=== PATIENT | male | born 1960 | race Caucasian/White ===

== ENCOUNTER → 2017-05-21 10:54 | Outpatient (CLI) | payer OTHER, SELFPAY ==
[2017-05-21 11:25] VITALS: BP 136/85; PULSE 64; RESP 18; TEMP 36.3; O2SAT 97; BMI 31.1
[2017-05-21] MEDS: Mepolizumab 100 MG VIAL SQ (11:45)
[2017-05-21 12:15] VITALS: BP 131/91; PULSE 57; RESP 18; TEMP 36.1; O2SAT 98
== END ==
PROVIDERS: Family Provider Family Medicine; PCP Family Medicine; Visit Provider Internal Medicine Critical Care Medicine
DX: J45.50 Severe persistent asthma, uncomplicated (principal)
CPT/HCPCS: 96372; J2182

== ENCOUNTER → 2017-06-18 10:59 | Outpatient (CLI) | payer OTHER, SELFPAY ==
[2017-05-21 11:25] VITALS: BMI 31.1
[2017-05-21 12:15] VITALS: BP 131/91
[2017-06-18 11:07] VITALS: BP 146/88; PULSE 64; RESP 18; TEMP 36.7; O2SAT 98; BMI 31.1
[2017-06-18] MEDS: Mepolizumab 100 MG VIAL SQ (11:37)
== END ==
PROVIDERS: Family Provider Family Medicine; PCP Family Medicine; Visit Provider Internal Medicine Critical Care Medicine
DX: J45.50 Severe persistent asthma, uncomplicated (principal)
CPT/HCPCS: 96372; J2182

== ENCOUNTER → 2017-07-16 11:00 | Outpatient (CLI) | payer OTHER, SELFPAY ==
[2017-07-16 11:11] VITALS: BP 144/78; PULSE 76; RESP 16; TEMP 36.4; O2SAT 98; BMI 31.1
[2017-07-16] MEDS: Mepolizumab 100 MG VIAL SQ (11:32)
== END ==
PROVIDERS: Family Provider Family Medicine; PCP Family Medicine; Visit Provider Internal Medicine Critical Care Medicine
DX: J45.50 Severe persistent asthma, uncomplicated (principal)
CPT/HCPCS: 96372; J2182

== ENCOUNTER → 2017-08-13 10:57 | Outpatient (CLI) | payer OTHER, SELFPAY ==
[2017-08-13 11:02] VITALS: BP 129/80; PULSE 67; RESP 16; TEMP 36.5; O2SAT 98; BMI 31.8
[2017-08-13] MEDS: Mepolizumab 100 MG VIAL SQ (11:38)
== END ==
PROVIDERS: Family Provider Family Medicine; PCP Family Medicine; Visit Provider Internal Medicine Critical Care Medicine
DX: J45.50 Severe persistent asthma, uncomplicated (principal)
CPT/HCPCS: 96372; J2182

== ENCOUNTER → 2017-09-14 10:48 | Outpatient (CLI) | payer OTHER, SELFPAY ==
[2017-09-14 10:53] VITALS: BP 134/96; PULSE 75; RESP 18; TEMP 36.3; O2SAT 97; BMI 31.1
[2017-09-14] MEDS: Mepolizumab 100 MG VIAL SQ (11:28)
== END ==
PROVIDERS: Family Provider Family Medicine; PCP Family Medicine; Visit Provider Internal Medicine Critical Care Medicine
DX: J45.50 Severe persistent asthma, uncomplicated (principal)
CPT/HCPCS: 96372; J2182

== ENCOUNTER → 2017-10-12 10:52 | Outpatient (CLI) | payer OTHER, SELFPAY ==
[2017-10-12 10:57] VITALS: BP 133/96; PULSE 67; RESP 16; TEMP 36.4; O2SAT 97; BMI 31.8
[2017-10-12] MEDS: Mepolizumab 100 MG VIAL SQ (11:06)
== END ==
PROVIDERS: Family Provider Family Medicine; PCP Family Medicine; Visit Provider Internal Medicine Critical Care Medicine
DX: J45.50 Severe persistent asthma, uncomplicated (principal)
CPT/HCPCS: 96372; J2182

== ENCOUNTER → 2017-11-09 10:38 | Outpatient (CLI) | payer OTHER, SELFPAY ==
[2017-11-09 11:05] VITALS: BP 126/82; PULSE 62; RESP 18; TEMP 36.6; O2SAT 97; BMI 31.8
[2017-11-09] MEDS: Mepolizumab 100 MG VIAL SQ (11:07)
== END ==
PROVIDERS: Family Provider Family Medicine; PCP Family Medicine; Visit Provider Internal Medicine Critical Care Medicine
DX: J45.50 Severe persistent asthma, uncomplicated (principal)
CPT/HCPCS: 96372; J2182

== ENCOUNTER → 2017-12-07 10:55 | Outpatient (CLI) | payer OTHER, SELFPAY ==
[2017-12-07 11:02] VITALS: BP 141/90; PULSE 68; RESP 16; TEMP 36.6; O2SAT 98
[2017-12-07] MEDS: Mepolizumab 100 MG VIAL SQ (11:20)
== END ==
PROVIDERS: Family Provider Family Medicine; PCP Family Medicine; Visit Provider Internal Medicine Critical Care Medicine
DX: J45.50 Severe persistent asthma, uncomplicated (principal)
CPT/HCPCS: 96372; J2182

== ENCOUNTER → 2018-01-04 10:57 | Outpatient (CLI) | payer OTHER, SELFPAY ==
[2018-01-04 11:13] VITALS: BP 132/88; RESP 16; TEMP 36.9; O2SAT 96
[2018-01-04] MEDS: Mepolizumab 100 MG VIAL SQ (11:41)
[2018-01-04 18:38] LABS: Absolute Lymphocyte Count 1.51 X10^3/ul (0.83-4.51); Absolute Neutrophil Count 4.2 X10^3/uL (2.0-7.7); Basophil# 0.03 X10^3/uL; Basophil% 0.5 % (0-1); Eosinophil# 0.03 X10^3/uL; Eosinophils% 0.5 % (0-5); Hematocrit 42.5 % (40-54); Hemoglobin 14.4 g/dl (13.0-16.5); Lymphocyte # 1.51 X10^3/ul (4.0); Lymphocyte % 23.9 % (19-41); Mean Corp Hgb Conc 33.9 g/gl (32-36); Mean Corpuscular Hgb 30.2 pg (27.0-32.0); Mean Corpuscular Volume 89.1 fL (80-94); Mean Platelet Vol. 11.6 fl (6.2-12.0); Monocyte# 0.56 X10^3/uL; Monocyte% 8.9 % (0-10); Neutrophil # 4.19 X10^3/uL (2.7-7.7); Neutrophil % 66.2 % (47-70); Platelet Count 180 K/mm3 (150-450); RBC Distribution Width CV 13.6 % (11.6-14.6); Red Blood Count 4.77 M/mm3 (4.6-6.2); White Blood Count 6.3 K/mm3 (4.4-11.0)
[2018-01-04 18:51] LABS: POSITIVE COUNT NO; POSITIVE DIFFERENTIAL NO; POSITIVE MORPHOLOGY NO
[2018-01-04 18:57] LABS: Anion Gap 10 (5-15); BUN 20 mg/dL (7-18); BUN/Creat Ratio 20.7 RATIO (10-20); Calcium,Total 8.7 mg/dL (8.5-10.1); Chloride 104 mmol/L (98-107); Creatinine, Serum 0.96 mg/dL (0.70-1.30); EST Glomerular Filtration Rate 85 mL/min (>60); Est Glom Filt Rate - Afr Amer 103 mL/min (>60); Glucose 91 mg/dL (74-106); Potassium 3.6 mmol/L (3.5-5.1); Sodium Level 141 mmol/L (136-145); Thyroid Stim Hormone (TSH) 4.11 uIU/mL (0.358-3.74)
== END ==
PROVIDERS: Family Provider Family Medicine; PCP Family Medicine; Visit Provider Internal Medicine Critical Care Medicine
DX: J45.50 Severe persistent asthma, uncomplicated (principal); I10 Essential (primary) hypertension; E03.9 Hypothyroidism, unspecified; R73.01 Impaired fasting glucose
CPT/HCPCS: 36415; 80048; 84439; 84443; 85025; 96372; J2182

== ENCOUNTER → 2018-02-01 10:57 | Outpatient (CLI) | payer OTHER, SELFPAY ==
[2018-02-01 11:07] VITALS: BP 127/90; PULSE 69; RESP 18; TEMP 36.6; O2SAT 96; BMI 31.8
[2018-02-01] MEDS: Mepolizumab 100 MG VIAL SQ (11:35)
== END ==
PROVIDERS: Family Provider Family Medicine; PCP Family Medicine; Visit Provider Internal Medicine Critical Care Medicine
DX: J45.50 Severe persistent asthma, uncomplicated (principal)
CPT/HCPCS: 96372; J2182

== ENCOUNTER → 2018-03-01 15:40 | Outpatient (CLI) | payer OTHER, SELFPAY ==
[2018-03-01 15:48] VITALS: BP 120/74; PULSE 68; RESP 16; TEMP 36.6; O2SAT 96; BMI 31.8
[2018-03-01] MEDS: Mepolizumab 100 MG VIAL SQ (16:15)
--- NOTE | 2018-03-01 16:32 | NURSING ---
NO REACTION NOTED AT INJECTION SITE.
== END ==
PROVIDERS: Family Provider Family Medicine; PCP Family Medicine; Referring Provider Internal Medicine Critical Care Medicine; Visit Provider Internal Medicine Critical Care Medicine
DX: J45.50 Severe persistent asthma, uncomplicated (principal)
CPT/HCPCS: 96372; J2182

== ENCOUNTER → 2018-03-29 15:43 | Outpatient (CLI) | payer OTHER, SELFPAY ==
[2018-03-29 15:52] VITALS: BP 149/90; PULSE 62; RESP 18; TEMP 36.4; O2SAT 97; BMI 30.9
[2018-03-29] MEDS: Mepolizumab 100 MG VIAL SQ (16:18)
--- OUTSIDE RECORDS SUMMARY | 2018-05-15 23:01 | XMS RPT_ITS ---
:1960 Author Organization OHIP Support Name Relationship Address Phone JHON SHAVER Unavailable [address] + [place] [address] WOOCISCH Unavailable [address] + [place] [address] JHON SHAVER Unavailable [address] + [place] [address] WOOCISCH Unavailable [address] + [place] [address] HAVEAlaina JHON Unavailable [address] + [place] [address] WOOCISCH Unavailable [address] + [place] [address] HAVEN, JHON Unavailable [address] + [place] [address] WOOCISCH Unavailable [address] + [place] [address] HAVEN, JHON Unavailable [address] + [place] [address] WOOCISCH Unavailable [address] + [place] [address] HAVEN, JHON Unavailable [address] + [place] [address] WOOCISCH Unavailable [address] + [place] [address] HAVEN, JHON Unavailable [address] + [place] [address] WOOCISCH Unavailable [address] + [place] [address] HAVEN, JHON Unavailable [address] + [place] [address] WOOCISCH Unavailable [address] + [place] [address] HAVEN, JHON Unavailable [address] + [place] [address] WOOCISCH Unavailable [address] + [place] [address] HAVEN, JHON Unavailable [address] + [place] [address] WOOCISCH Unavailable [address] + [place] [address] HAVEN, JHON Unavailable [address] + [place] [address] WOOCISCH Unavailable [address] + [place] [address] HAVEN, JHON Unavailable [address] + [place] [address] WOOCISCH Unavailable [address] + [place] [address] HAVEN, JHON Unavailable [address] + [place] [address] WOOCISCH Unavailable [address] + [place] [address] HAVEN, JHON Unavailable [address] + [place] [address] WOOCISCH Unavailable [address] + [place] [address] HAVEN, JHON Unavailable [address] + [place] [address] WOOCISCH Unavailable [address] + [place] [address] HAVEN, JHON Unavailable [address] + [place] [address] WOOCISCH Unavailable [address] + [place] [address] HAVEN, JHON Unavailable [address] + [place] [address] WOOCISCH Unavailable [address] + [place] [address] HAVEN, JHON Unavailable [address] + [place] [address] WOOCISCH Unavailable [address] + [place] [address] Care Team Providers Name Role Phone Noe, Amor Attending Unavailable Teddy, Tarik Referring Unavailable Jina Corea Attending Unavailable Noe, Amor Attending Unavailable Noe, Amor Referring Unavailable Teddy, Lenox Primary Care Unavailable Noe, Amor Attending Unavailable Noe, Maor Referring Unavailable Teddy, [facility] Primary [facility] Unavailable Noe, Amor Attending Unavailable Noe, Amor Referring Unavailable Teddy, [facility] Primary [facility] Unavailable Janelle Toro Attending Unavailable Teddy, Tarik Referring Unavailable Noe, Amor Attending Unavailable Noe, Amor Referring Unavailable Teddy, [facility] Primary [facility] Unavailable Noe, Amor Attending Unavailable Noe, Amor Referring Unavailable Teddy, [facility] Primary [facility] Unavailable Noe, Amor Attending Unavailable Noe, Amor Referring Unavailable Teddy, [facility] Primary [facility] Unavailable Noe, Amor Attending Unavailable Noe, Amor Referring Unavailable Tdedy, [facility] Primary [facility] Unavailable Noe, Amor Attending Unavailable Noe, Amor Referring Unavailable Teddy, [facility] Primary [facility] Unavailable Noe, Amor Attending Unavailable Noe, Amor Referring Unavailable Teddy, [facility] Primary [facility] Unavailable Noe, Amor Attending Unavailable Noe, Amor Referring Unavailable Teddy, [facility] Primary [facility] Unavailable Noe, Amor Attending Unavailable Teddy, Tarik Referring Unavailable Noe, Amor Attending Unavailable Noe, Amor Referring Unavailable Teddy, [facility] Primary [facility] Unavailable Noe, Amor Attending Unavailable Noe, Amor Referring Unavailable Teddy, [facility] Primary [facility] Unavailable Noe, Amor Attending Unavailable Noe, Amor Referring Unavailable Teddy, [facility] Primary [facility] Unavailable Janelle Toro Attending Unavailable Teddy, Tarik Referring Unavailable Teddy, [facility] Primary [facility] Unavailable PROBLEMS PROBLEMS DATE TYPE CONDITION / CODE ATTENDING STATUS SOURCE 04/07/2018 Unknown J45.909 - Noe, Amor Active [facility] Unspecified asthma, Community uncomplicated / Hospital J45.909(ICD-10) Repository 04/07/2018 Unknown J33.9 - Nasal Noe, Amor Active [facility] polyp, unspecified Community / J33.9(ICD-10) Hospital Repository 01/04/2018 Unknown E03.9 - Noe, Amor Active [facility] Hypothyroidism, Community unspecified / Hospital E03.9(ICD-10) Repository 01/04/2018 Unknown I10 - Essential Noe, Amor Active [facility] (primary) Community hypertension / Hospital I10(ICD-10) Repository 01/04/2018 Unknown R73.01 - Impaired Noe, Amor Active [place] fasting glucose / Community R73.01(ICD-10) Hospital Repository 02/09/2018 Unknown J45.50 - Severe Noe, Amor Active [facility] persistent asthma, Community uncomplicated / Hospital J45.50(ICD-10) Repository PROCEDURES PROCEDURES No Procedure Records FoundRESULTS RESULTS PULMONARY VISIT REPORT Observed: 04/08/2018 Status: F Source: [place] 6:49 AM [facility] REPOSITORY [facility] [address] [place] [address] OFFICE VISIT Date of Service: 04/07/18 MR#: [id number] Acct: [id number] Name: PAULA SHAVER Rep #: [id number] : 1960 Provider: Amor Liu MD Age/Sex: 58/M Location: [facility] Status: Signed Assessment AND Plan Plan Patient overall appears to be doing well. Patient is on maximal dose Breo and Nucala therapy, but has not had any exacerbations requiring prednisone therapy. Previous attempts to decrease dosing of Breo have not been tolerated. 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 PFT prior to next visit. Continue current therapy. Orders Orders: Plan Detail Follow Up 6 Months ([facility]) HPI 3 M FU: Chief Complaint: Chronic cough Details: Patient is a 58-year-old male, currently under the care of Dr. Espinal, who presents for evaluation secondary to chronic cough. Since last visit, patient denies any ER visits, hospitalizations or prednisone burst. Patient does report having a cold over the last 4 days, but he feels this is getting better. Patient overall feels subjectively unchanged compared to previous. Patient does report that he recently changed to a different job. 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 Patient states he will use his albuterol preemptively prior to going to work, but has not required significant increase in albuterol otherwise. Patient has been compliant with his maintenance therapy and denies any complications such as thrush, hoarseness or sore throat. During recent cold, patient reports some sinus congestion and sneezing. Patient states he is blowing his nose frequently and coughing up dark brown sputum that lightens throughout the day. Patient has not taken any [id number] medications for his cold. Patient continues to receive Nucala therapy. Patient states he takes Benadryl preemptively and has not had any problems with rashes. 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 Accompanied by: Self Is patient in pain?: No Allergies sulfamethoxazole [From Bactrim] Allergy (Verified 04/07/18 13:11) Hives trimethoprim [From Bactrim] Allergy (Verified 04/07/18 13:11) Hives Medications Atorvastatin Calcium [Lipitor] 40 mg PO QHS 10/08/13 [History Confirmed 04/07/18] Albuterol Aerosols [Ventolin Aerosols] 2.5 mg INHALATION Q4H PRN PRN 10/30/13 [History Confirmed 04/07/18] Albuterol Inhaler [Ventolin Hfa] 2 puff INHALATION Q4H PRN PRN #1 inhaler 11/02/13 [Rx Confirmed 04/07/18] losartan 50 mg-hydrochlorothiazide 12.5 mg tablet 1 tab PO QDAY 05/20/17 [History Confirmed 04/07/18] fluticasone 200 mcg-vilanterol 25 mcg/dose powder for inhalation 1 ea INHALATION DAILY #3 device 12/27/17 [Rx Confirmed 04/07/18] Levothyroxine [Synthroid] 175 mcg PO DAILY 02/01/18 [History Confirmed 04/07/18] PFS Medical History Hiatal hernia (Chronic) Nasal polyp (Chronic) Asthma (Chronic) HTN (hypertension) (Chronic) Dyslipidemia (Chronic) Hypothyroid (Chronic) Surgical History Nasal Polyps Removal (Resolved) Male circumcision (Resolved) Varicose vein of leg (Resolved) History of appendectomy (Resolved) H/O hernia repair (Resolved) Family History Father Kidney disease Social History Smoking Status: Never smoker second hand exposure: Yes alcohol intake: never substance use type: does not use Review of Systems Const CONSTITUTIONAL: Negative anorexia, body ache, chills, daytime sleepiness, fever(s), night sweats, oral thrush, stops breathing during sleep, weight loss, sleeping in chair, fatigue, weight loss, weight gain, frequent colds, seasonal allergies, other, headache(s) or orthopnea EETM Ear Nose Throat Mouth: Positive hearing normal and nasal discharge; negative hard of hearing, hoarseness, dry mouth in morning, change in vision, itchy eyes, eye pain, swallowing Difficulty, ear pain, nose bleed, headache(s), mouth pain, nasal congestion, post nasal drip, sinus pain, sinus pressure, sore throat or other Cardio Cardiovascular: Negative chest pain, chest pain at rest, chest pain with activity, irregular heart rhythm, edema, shortness of breath when lying down, palpitations, murmur or other Resp Respiratory: Positive as per HPI, cough cough: Positive productive color: Positive brown and clear and inhalers; negative shortness of breath, pain with cough, wheezing, chest congestion, chest tightness, pain on inspiration, increase use of rescue inhalers, snoring, apnea or other Gastro Gastrointestional: Negative bloody stools, change in appetite, difficulty swallowing, reflux, hematemesis, melena stool, loose stool, constipation or other Genitourinary: Negative blood in urine, nocturia, pain with urination or other Musc Musculoskeletal: Negative body pain, back pain, neck pain or other Skin/Breast Skin/Breast: Negative dry skin, itching, rash, unusual bruising, breast lump or other Neuro Neurological: Negative restless legs, confusion, weakness or other Psych Psychocological: Negative abnormal sleep pattern, anxiety, thoughts of hurting self/others, hopelessness or other Lymph Lymphatic: Negative easy bleeding, easy bruising, swollen lymph nodes or other Exam Const Constitutional: Positive conversant, cooperative, in no acute respiratory distress, healthy appearing, well developed, well nourished and good hygiene; negative appears older than stated age, wearing supplemental oxygen, ill appearing or smells of smoke Head Head: Positive normocephalic and atraumatic; negative cyanosis of lips/distal nose, frontal sinus tenderness or maxillary sinus tenderness Eyes Eye: Positive clear conjunctiva; negative nystagmus, scleral abnormality or cataract present Ears Ear: Positive hearing normal and external ears normal; negative hard of hearing Nose Nose: Positive external nose normal, septum normal and no nasal discharge; negative epistaxis or nasal polyp Mouth Mouth: Positive oral mucosae normal, no lesions, good dentition and posterior oropharynx is adequate; negative post nasal drip, malodorous breath or oral thrush present Mallampati Score: II: Mallampati Score Neck Neck: Positive normal visual inspection, full ROM and trachea midline; negative lymphadenopathy or JVD Chest Wall Chest: Positive normal inspection of the chest and symmetric chest movement; negative crepitus or tenderness Resp lung sounds: Positive clear to auscultation, good air exchange, normal expiratory time and normal respiratory effort; negative wheezes, rhonchi, rales, use of accessory muscles, wheeze present on forced exhalation or dullness to percussion Cardio Cardiac: Positive regular rate, regular rhythm, S1 normal and S2 normal; negative murmur, rub or gallop GI GI: Positive normal to inspection and normal bowel sounds; negative distended, ascites or epigastric tenderness Genitourinary: Positive deferred Musc Musculoskeletal: Positive steady gait; negative using an assistive device for ambulation, kyphosis or scoliosis Skin Pulmonary Skin Exam: Positive intact; negative rash, lesion, ulcers, erythema or dermal atrophy Pulses Pulse: Yes radial pulses present Extremities Extremities: Yes capillary refill normal, No clubbing, No cyanosis, No edema, No stasis dermatitis Neuro Neurologic: Yes conversant, Yes no focal neuro deficits, Yes normal coordination, Yes normal concentration, Yes cooperative, Yes normal cognition, Yes understands questions Lymph Lymphatic: No lymphadenopathy Psych Appearance: Positive grossly normal Mental Status: Positive mental status grossly normal Mood: Positive congruent mood Affect: Positive normal affect Coding Level of Care Code Off vis,est,level 3 04/08/18 0649 <Electronically signed by Amor Liu MD> Date Amor Liu MD Cosigner Signature: Date (if applicable) CC: Tarik Espinal MD CBC W/DIFF, AUTOMATED Collected: 01/04/2018 Status: F Source: [place] 2:29 PM [facility] REPOSITORY Order Comment: ORDERED BLOOD WORK TYPE CODE TESTS RESULT OUT OF RANGE REFERENCE UNITS LAB L100.1000 4.4-11.0 K/mm3 Normal WBC 6.3 LAB L100.1200 4.6-6.2 M/mm3 Normal RBC 4.77 LAB L100.1300 13.0-16.5 g/dl Normal HGB 14.4 LAB L100.1400 40-54 % Normal HCT 42.5 LAB L100.1500 80-94 fL Normal MCV 89.1 LAB L100.1600 27.0-32.0 pg Normal MCH 30.2 LAB L100.1700 32-36 g/gl Normal MCHC 33.9 LAB L100.1810 11.6-14.6 % Normal RDW CV 13.6 LAB L100.1820 35.1-43.9 fl High RDW SD 44.0 LAB L100.1900 150-450 K/mm3 Normal PLT 180 LAB L100.2000 6.2-12.0 fl Normal MPV 11.6 LAB L100.2100 47-70 % Normal NEUT% 66.2 LAB L100.2200 19-41 % Normal LY% 23.9 LAB L100.2300 0-10 % Normal MONO% 8.9 LAB L100.2400 0-5 % Normal EO% 0.5 LAB L100.2500 0-1 % Normal BASO% 0.5 LAB L100.2550 0.0-0.9 % Normal IM GRAN % 0.000 Result Comment: IG% - Immature Granulocytes (promyelocytes, myelocytes and metamyelocytes) > 1% indicates that a LEFT SHIFT is Present. LAB L100.2620 2.0-7.7 X10 3/uL Normal Absolute Neut 4.2 LAB L100.2720 0.83-4.51 X10 3/ul Normal Absolute Lymph 1.51 Performed By: #### L100.0100 #### [facility] [address] [place], [place], [id number] BASIC METABOLIC Collected: 01/04/2018 Status: F Source: [place] PROFILE (BMP) 2:29 PM [facility] REPOSITORY Order Comment: ORDERED BLOOD WORK TYPE CODE TESTS RESULT OUT OF RANGE REFERENCE UNITS LAB L501.0100 74-106 mg/dL Normal GLU 91 Result Comment: Please note revised GLUCOSE reference range effective 2017. LAB L501.1000 7-18 mg/dL High BUN 20 LAB L501.1100 0.70-1.30 mg/dL Normal CREAT,SERUM 0.96 Result Comment: The validity of the calculated GFR AND GFRAA in patients over 70 years has not been determined. Clinical correlation is essential. LAB L501.1110 >60 mL/min Normal EST GFR 85 Result Comment: Non- GFR Calc LAB L501.1115 >60 mL/min Normal EST GFR - AA 103 Result Comment: GFR Calc LAB L501.1300 10-20 RATIO High BUN/CRE 20.7 LAB L501.2200 8.5-10.1 mg/dL CA Normal 8.7 LAB L501.5300 136-145 mmol/L NA Normal 141 LAB L501.5600 3.5-5.1 mmol/L K Normal 3.6 LAB L501.5900 98-107 mmol/L CL Normal 104 LAB L501.6100 21.0-32.0 mmol/L Normal CO2 27.0 LAB L501.6200 5-15 Normal GAP 10 Performed By: #### L500.2500, L501.9520, L506.0400 #### [facility] [address] [place], [place], [id number] THYROID STIM HORMONE Collected: 01/04/2018 Status: F Source: [place] (TSH) 2:29 PM [facility] REPOSITORY Order Comment: ORDERED BLOOD WORK TYPE CODE TESTS RESULT OUT OF RANGE REFERENCE UNITS LAB L501.9520 0.358-3.74 uIU/mL High TSH 4.11 Performed By: #### L500.2500, L501.9520, L506.0400 #### [facility] [address] [place], [place], [id number] T4 FREE DIRECT Collected: 01/04/2018 Status: F Source: [place] 2:29 PM [facility] REPOSITORY Order Comment: ORDERED BLOOD WORK TYPE CODE TESTS RESULT OUT OF RANGE REFERENCE UNITS LAB L506.0400 0.76-1.46 ng/dL Normal T4 FREE 1.20 DIRECT Performed By: #### L500.2500, L501.9520, L506.0400 #### [facility] [address] [place], [address] PULMONARY VISIT REPORT Observed: 12/01/2017 Status: F Source: [place] 11:30 AM [facility] REPOSITORY [facility] [address] [place] [address] OFFICE VISIT Date of Service: 12/01/17 MR#: [id number] Acct: [id number] Name: PAULA SHAVER Rep #: [id number] : 1960 Provider: Janelle Toro Age/Sex: 57/M Location: [facility] Status: Signed Assessment AND Plan 1. Severe persistent asthma without complication J45.50 Plan No signs of exacerbation of asthma today. No change in maintenance medications. No additional testing at this time. Contact the office with any signs of new or worsening symptoms. Follow-up in 3 mos. 2. Daytime hypersomnia G47.19 Plan Suspicious for obstructive sleep apnea. Declined testing. Unattended sleep study with AutoPAP if indicated would be appropriate. Plan Detail Follow Up 3 Months ([facility]) HPI 2 M FU: Chief Complaint: cough HPI Comments Details: This patient presents to the office today to follow up on his severe persistent asthma. He is ambulatory and on room air. He denies any visits to the ED/Urgent care for respiratory illness since his last office visit. He denies any need for antibiotics or prednisone for breathing problems since his last office visit either. He was using Arnuity 200 mcg daily, but believes he was noticing more chest tightness on the arnuity, which was less control than he was seeing with Breo. He does rinse his mouth after each use, he denies any medication side effects such as sore throat or thrush. He has not needed his rescue inhaler. He is using an albuterol nebulizer once daily, which loosens his secreations and allows him to expectorate them. He continues with Nucala injections monthly. He usually premedicates with Benadryl secondary to some injection site reactions. He admits that recently he forgot to premedicate and developed hives and rash at the injection site. He was disappointed and somewhat concerned that it took 3 doses of Benadryl to resolve. Currently, he complains of a daily cough. The cough is productive of green to brown sputum in the morning and is dry through out the rest of the day. He has occasional chest tightness and wheezing. He denies any hemoptysis. He denies chest pain or palpitations. He has not had fever, chills or body aches. See complete review of systems. He complains of daytime fatigue. He admits to snoring. He denies napping. He then stated I am not going to wear that mask while I sleep, so don't even go there. STOP-BANG Assessment: 1. Do you snore? Y 2. Are you frequently tired during the day? Y 3. Have you been observed gasping or choking while asleep? N 4. Do you have high blood pressure? Y 5. BMI - greater than 35kg/m2? N 6. Age - over 50 years old? Y 7. Neck Circumference - greater than 37 cm for females or 40 cm for males? N 8. Gender - male? Y Total STOP-BANG score = 5 which indicates HIGH risk for obstructive sleep apnea (yes to 3 or more questions = high risk of sleep apnea). 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 Accompanied by: Self Is patient in pain?: No Allergies sulfamethoxazole [From Bactrim] Allergy (Verified 12/01/17 10:18) Hives trimethoprim [From Bactrim] Allergy (Verified 12/01/17 10:18) Hives Medications Atorvastatin Calcium [Lipitor] 40 mg PO QHS 10/08/13 [History Confirmed 12/01/17] Levothyroxine [Synthroid] 125 mcg PO DAILY 10/08/13 [History Confirmed 12/01/17] Albuterol Aerosols [Ventolin Aerosols] 2.5 mg INHALATION Q4H PRN PRN 10/30/13 [History Confirmed 12/01/17] Albuterol Inhaler [Ventolin Hfa] 2 puff INHALATION Q4H PRN PRN #1 inhaler 11/02/13 [Rx Confirmed 12/01/17] losartan 50 mg-hydrochlorothiazide 12.5 mg tablet 1 tab PO QDAY 05/20/17 [History Confirmed 12/01/17] Fluticasone/Vilanterol [Breo Ellipta 200-25 Mcg INH] 1 ea IH DAILY 08/13/17 [History Confirmed 12/01/17] PFSH Medical History Hiatal hernia (Chronic) Nasal polyp (Chronic) Asthma (Chronic) HTN (hypertension) (Chronic) Dyslipidemia (Chronic) Hypothyroid (Chronic) Surgical History Nasal Polyps Removal (Resolved) Male circumcision (Resolved) Varicose vein of leg (Resolved) History of appendectomy (Resolved) H/O hernia repair (Resolved) Family History Father Kidney disease Social History Smoking Status: Never smoker second hand exposure: Yes alcohol intake: never substance use type: does not use Review of Systems Const CONSTITUTIONAL: Positive fatigue; negative anorexia, body ache, chills, daytime sleepiness, fever(s), night sweats, oral thrush, stops breathing during sleep, weight loss, sleeping in chair, weight loss, weight gain, frequent colds, seasonal allergies, other, headache(s) or orthopnea EETM Ear Nose Throat Mouth: Positive hearing normal and nasal discharge; negative hard of hearing, hoarseness, dry mouth in morning, change in vision, itchy eyes, eye pain, swallowing Difficulty, ear pain, nose bleed, headache(s), mouth pain, nasal congestion, post nasal drip, sinus pain, sinus pressure, sore throat or other Cardio Cardiovascular: Negative chest pain, chest pain at rest, chest pain with activity, irregular heart rhythm, edema, shortness of breath when lying down, palpitations, murmur or other Resp Respiratory: Positive as per HPI, shortness of breath shortness of breath: Positive with activity, wheezing, cough cough: Positive non-productive and productive color: Positive brown and green and inhalers; negative pain with cough, chest congestion, chest tightness, pain on inspiration, increase use of rescue inhalers, snoring, apnea or other Gastro Gastrointestional: Negative bloody stools, change in appetite, difficulty swallowing, reflux, hematemesis, melena stool, loose stool, constipation or other Genitourinary: Negative blood in urine, nocturia, pain with urination or other Musc Musculoskeletal: Negative body pain, back pain, neck pain or other Skin/Breast Skin/Breast: Negative dry skin, itching, rash, unusual bruising, breast lump or other Neuro Neurological: Negative restless legs, confusion, weakness or other Psych Psychocological: Negative abnormal sleep pattern, anxiety, thoughts of hurting self/others, hopelessness or other Lymph Lymphatic: Negative easy bleeding, easy bruising, swollen lymph nodes or other Exam Const Constitutional: Positive conversant, cooperative, in no acute respiratory distress, healthy appearing, well developed, well nourished and good hygiene Head Head: Positive normocephalic and atraumatic; negative cyanosis of lips/distal nose Eyes Eye: Positive clear conjunctiva; negative nystagmus or scleral abnormality Ears Ear: Positive hearing normal; negative hard of hearing Nose Nose: Negative epistaxis Mouth Mouth: Positive oral mucosae normal and no lesions; negative post nasal drip, malodorous breath or oral thrush present Mallampati Score: I: Mallampati Score Neck Neck: Positive normal visual inspection, full ROM and trachea midline; negative lymphadenopathy, JVD or tender Chest Wall Chest: Positive normal inspection of the chest and symmetric chest movement; negative increased A/P diameter Resp lung sounds: Positive clear to auscultation, good air exchange, normal expiratory time and normal respiratory effort; negative diminished, wheezes, rhonchi, rales, dullness to percussion or wheeze present on forced exhalation Cardio Cardiac: Positive regular rate, regular rhythm, S1 normal and S2 normal; negative murmur GI GI: Positive normal to inspection and normal bowel sounds; negative distended Genitourinary: Positive deferred Musc Musculoskeletal: Positive steady gait and ROM normal; negative kyphosis or scoliosis Skin Pulmonary Skin Exam: Positive intact; negative rash, lesion, ulcers or erythema Pulses Pulse: Yes pulses normal x4 extremities Extremities Extremities: Yes capillary refill normal, No clubbing, No cyanosis, No edema Neuro Neurologic: Yes conversant, Yes no focal neuro deficits, Yes normal concentration, Yes understands questions, Yes cooperative, Yes normal cognition, Yes normal coordination Lymph Lymphatic: No lymphadenopathy, No tenderness, No cervical adenopathy Psych Appearance: Positive grossly normal, eye contact and well kempt Mental Status: Positive mental status grossly normal Mood: Positive congruent mood Affect: Positive normal affect Coding Level of Care Code Off vis,est,level 3 Diagnoses Severe persistent asthma without complication J45.50 Asthma severity: severe Asthma persistence: persistent Asthma complication type: uncomplicated Daytime hypersomnia G47.19 12/01/17 1130 <Electronically signed by Janelle DAUGHERTY> Date Janelle GIRONC Cosigner Signature: Date (if applicable) CC: Tarik Espinal MD PULMONARY VISIT REPORT Observed: 10/07/2017 Status: F Source: [place] 11:41 AM [facility] Pulmonary Medicine of [address] [place] [address] OFFICE VISIT Date of Service: 10/07/17 MR#: [id number] Acct: [id number] Name: PAULA SHAVER Rep #: [id number] : 1960 Provider: Amor Liu MD Age/Sex: 57/M Location: [facility] Status: Signed Assessment AND Plan Problems 1. Severe persistent asthma without complication J45.50 2. Nasal Polyps Removal Plan Patient overall is well controlled at this time. Unfortunately, patient did not tolerate step therapy from Brio to off. Stressed to the patient that Nucala has resulted in no exacerbation over the last 10 months indicating a good response. Will attempt to stepdown in therapy to Arnuity 200. Patient does have some leftover Brio so will use this prior to transition. We will also discuss financial situation with Nucala rep proactively to ensure patient does not miss any doses. Patient has not followed up for nasal polyp removal, but continues to have some sinus congestion. Continue Nucala. Stepdown therapy to Arnuity. Plan Detail Follow Up 2 Months ([facility]) HPI 3 M FU: Chief Complaint: Questions about therapy Details: Patient is a 57-year-old male, currently under the care of Dr. Espinal, who presents for evaluation secondary to questions of therapy. Since last visit, patient denies any ER visits, hospitalizations or prednisone burst. Patient does report that he attempted discontinuation of Brio therapy, but started to develop wheezing, so reinitiated therapy. Patient states he is back to his baseline at this time. Patient continues to report a cough on a daily basis consistent with green to dark brown phlegm. Patient does have occasional hoarseness, which is typically associated with cough. Patient has been compliant with Nucala therapy and denies any reactions at the injection site after premedication with Benadryl. Patient reports he uses a dose of albuterol approximately 1 time per day. Patient did have several questions about alternatives for her Nucala. Patient is concerned about cost moving forward as patient has only been preapproved through November. Intake Vital Signs10/07/17 Body Mass Index (BMI) 31.1 10/07/17 Blood Pressure 150/91 10/07/17 Height 6 ft 10/07/17 Weight: 109.769 kg Intake Visit Reasons: 3 M FU Accompanied by: Self Allergies sulfamethoxazole [From Bactrim] Allergy (Verified 07/16/17 11:15) Hives trimethoprim [From Bactrim] Allergy (Verified 07/16/17 11:15) Hives Medications Atorvastatin Calcium [Lipitor] 40 mg PO QHS 10/08/13 [History Confirmed 08/13/17] Levothyroxine [Synthroid] 125 mcg PO DAILY 10/08/13 [History Confirmed 08/13/17] Albuterol Aerosols [Ventolin Aerosols] 2.5 mg INHALATION Q4H PRN PRN 10/30/13 [History Confirmed 08/13/17] Albuterol Inhaler [Ventolin Hfa] 2 puff INHALATION Q4H PRN PRN #1 inhaler 11/02/13 [Rx Confirmed 08/13/17] losartan 50 mg-hydrochlorothiazide 12.5 mg tablet 1 tab PO QDAY 05/20/17 [History Confirmed 08/13/17] Fluticasone/Vilanterol [Breo Ellipta 200-25 Mcg INH] 1 ea IH DAILY 08/13/17 [History Confirmed 08/13/17] PFSH Medical History Hiatal hernia (Chronic) Nasal polyp (Chronic) Asthma (Chronic) HTN (hypertension) (Chronic) Dyslipidemia (Chronic) Hypothyroid (Chronic) Surgical History Nasal Polyps Removal (Resolved) Male circumcision (Resolved) Varicose vein of leg (Resolved) History of appendectomy (Resolved) H/O hernia repair (Resolved) Family History Father Kidney disease Social History Smoking Status: Never smoker second hand exposure: Yes alcohol intake: never substance use type: does not use Review of Systems Const CONSTITUTIONAL: Negative anorexia, body ache, chills, daytime sleepiness, fever(s), night sweats, oral thrush, stops breathing during sleep, weight loss, sleeping in chair, fatigue, weight loss, weight gain, frequent colds, seasonal allergies, other, headache(s) or orthopnea EETM Ear Nose Throat Mouth: Positive hearing normal and hoarseness; negative hard of hearing, dry mouth in morning, change in vision, itchy eyes, eye pain, swallowing Difficulty, ear pain, nose bleed, headache(s), mouth pain, nasal congestion, nasal discharge, post nasal drip, sinus pain, sinus pressure, sore throat or other Cardio Cardiovascular: Negative chest pain, chest pain at rest, chest pain with activity, irregular heart rhythm, edema, shortness of breath when lying down, palpitations, murmur or other Resp Respiratory: Positive as per HPI and cough cough: Positive productive color: Positive green and brown; negative shortness of breath, pain with cough, wheezing, chest congestion, chest tightness, pain on inspiration, inhalers, increase use of rescue inhalers, snoring, apnea or other Gastro Gastrointestional: Negative bloody stools, change in appetite, difficulty swallowing, reflux, hematemesis, melena stool, loose stool, constipation or other Genitourinary: Negative blood in urine, nocturia, pain with urination or other Musc Musculoskeletal: Negative body pain, back pain, neck pain or other Skin/Breast Skin/Breast: Negative dry skin, itching, rash, unusual bruising, breast lump or other Neuro Neurological: Negative restless legs, confusion, weakness or other Psych Psychocological: Negative abnormal sleep pattern, anxiety, thoughts of hurting self/others, hopelessness or other Lymph Lymphatic: Negative easy bleeding, easy bruising, swollen lymph nodes or other Exam Const Constitutional: Positive conversant, cooperative, in no acute respiratory distress, healthy appearing, well developed, well nourished and good hygiene; negative ill appearing or smells of smoke Head Head: Positive normocephalic and atraumatic; negative cyanosis of lips/distal nose, frontal sinus tenderness or maxillary sinus tenderness Eyes Eye: Positive clear conjunctiva; negative nystagmus, scleral abnormality or cataract present Ears Ear: Positive hearing normal and external ears normal; negative hard of hearing Nose Nose: Positive external nose normal, septum normal and clear nasal discharge; negative epistaxis or nasal polyp Mouth Mouth: Positive oral mucosae normal, no lesions, good dentition and posterior oropharynx is adequate; negative post nasal drip, malodorous breath or oral thrush present Mallampati Score: II: Mallampati Score Neck Neck: Positive normal visual inspection, full ROM and trachea midline; negative lymphadenopathy or JVD Chest Wall Chest: Positive normal inspection of the chest and symmetric chest movement; negative crepitus or tenderness Resp lung sounds: Positive clear to auscultation, good air exchange, normal expiratory time and normal respiratory effort; negative wheezes, rhonchi, rales, use of accessory muscles, wheeze present on forced exhalation or dullness to percussion Cardio Cardiac: Positive regular rate, regular rhythm, S1 normal and S2 normal; negative murmur, rub, gallop or normal PMI GI GI: Positive normal to inspection and normal bowel sounds; negative distended, ascites or epigastric tenderness Genitourinary: Positive deferred Musc Musculoskeletal: Positive steady gait; negative using an assistive device for ambulation, kyphosis or scoliosis Skin Pulmonary Skin Exam: Positive intact; negative rash, lesion, ulcers, erythema, scaly or dermal atrophy Pulses Pulse: Yes radial pulses present Extremities Extremities: No clubbing, Yes capillary refill normal, No cyanosis, No edema Neuro Neurologic: Yes conversant, Yes no focal neuro deficits, Yes normal concentration, Yes understands questions, Yes cooperative, Yes normal cognition, Yes normal coordination Lymph Lymphatic: No lymphadenopathy Psych Appearance: Positive grossly normal Mental Status: Positive mental status grossly normal Mood: Positive congruent mood Affect: Positive normal affect Coding Level of Care Code Off vis,est,level 3 Diagnoses Severe persistent asthma without complication J45.50 Asthma severity: severe Asthma persistence: persistent Asthma complication type: uncomplicated Nasal Polyps Removal 10/07/17 1141 <Electronically signed by Amor Liu MD> Date Amor Liu MD Cosigner Signature: Date (if applicable) CC: Tarik Espinal MD PULMONARY VISIT REPORT Observed: 05/26/2017 Status: F Source: [place] 12:05 PM [facility] Pulmonary Medicine [place] [address] [facility] [place] [address] OFFICE VISIT Date of Service: 05/26/17 MR#: [id number] Acct: [id number] Name: PAULA SHAVER Rep #: [id number] : 1960 Provider: Janelle Toro Age/Sex: 57/M Location: [facility] Status: Signed Assessment AND Plan 1. Moderate persistent asthma without complication J45.40 Status Chronic Plan Continue current maintenance medications. Continue to call injections monthly. The patient will go off of Breo once she has completed the remaining 20 days that he has currently. He will contact the office if he has to resume the Breo once on his break. Follow-up with Dr. Liu in 3 months, at which time they can discuss the need of his Breo and response to the new collagen injections. No additional testing at this time. Plan Detail Follow Up 3 Months ([facility]) HPI 3 M FU: Chief Complaint: cough HPI Comments Details: Patient presents the office today for routine follow- up on his asthma. He is ambulatory, currently on room air. The patient reports that he has not been seen in the ED or urgent care for any respiratory illnesses since his last office visit. He has not required antibiotics or prednisone for exacerbation of his asthma. He is compliant with Breo daily. He reports rinsing his mouth out after each use, and actually brushes his teeth after using the Breo. He denies any medication side effects such as sore throat or thrush. He has not needed to use his Ventolin rescue inhaler. He reports that he probably has used his rescue inhaler 2 times in the past several months. He maintains compliance with his knee, injections monthly, has had 7 injections. He continues to premedicate with Benadryl prior to the injection. He did have an episode of hives after 1 of his injections, but after implementing the premedication with Benadryl has not had a recurrence of this. He uses his albuterol nebulizer every day prior to going to work, out of habit not for rescue. At his last office visit it was discussed the possibility of being weaned off of the Breo once in a collar have been implemented. He has 20 days remaining of Breo. After completing those 20 days he plans to discontinue the Breo. If he returns to having increase in wheezing, shortness of breath or cough he will resume the Breo and contact the office to give us an update. Continues to have a cough that is at times productive of green sputum. He denies any shortness of breath. He denies any wheezing or chest tightness. He denies any palpitations. He denies any hemoptysis. He does report having a intestinal virus at one point this winter, has not have any respiratory viruses. He denies any fever or chills. See complete review of systems. Intake Vital Signs05/26/17 Body Mass Index (BMI) 31.1 05/26/17 Height 6 ft 05/26/17 Weight: 239 lb Intake Visit Reasons: 3 M [employer] Required: No Is patient in pain?: No Allergies sulfamethoxazole [From Bactrim] Allergy (Verified 05/20/17 16:17) Hives trimethoprim [From Bactrim] Allergy (Verified 05/20/17 16:17) Hives Medications Atorvastatin Calcium [Lipitor] 40 mg PO QHS 10/08/13 [History Confirmed 05/26/17] Levothyroxine [Synthroid] 125 mcg PO DAILY 10/08/13 [History Confirmed 05/26/17] Albuterol Aerosols [Ventolin Aerosols] 2.5 mg INHALATION Q4H PRN PRN 10/30/13 [History Confirmed 05/26/17] Albuterol Inhaler [Ventolin Hfa] 2 puff INHALATION Q4H PRN PRN #1 inhaler 11/02/13 [Rx Confirmed 05/26/17] Fluticasone/Vilanterol [Breo Ellipta 200-25 Mcg INH] 1 ea IH DAILY 12/02/16 [History Confirmed 05/26/17] losartan 50 mg-hydrochlorothiazide 12.5 mg tablet 1 tab PO QDAY 05/20/17 [History Confirmed 05/26/17] PFSH Medical History Hiatal hernia (Chronic) Nasal polyp (Chronic) Asthma (Chronic) HTN (hypertension) (Chronic) Dyslipidemia (Chronic) Hypothyroid (Chronic) Surgical History Nasal Polyps Removal (Resolved) Male circumcision (Resolved) Varicose vein of leg (Resolved) History of appendectomy (Resolved) H/O hernia repair (Resolved) Family History Father Kidney disease Social History Smoking Status: Never smoker second hand exposure: Yes alcohol intake: never substance use type: does not use Review of Systems Const CONSTITUTIONAL: Negative anorexia, body ache, chills, daytime sleepiness, fever(s), night sweats, oral thrush, stops breathing during sleep, weight loss, sleeping in chair, fatigue, weight loss, weight gain, frequent colds, seasonal allergies, other, headache(s) or orthopnea EETM Ear Nose Throat Mouth: Positive hearing normal; negative hard of hearing, hoarseness, dry mouth in morning, change in vision, itchy eyes, eye pain, swallowing Difficulty, ear pain, nose bleed, headache(s), mouth pain, nasal congestion, nasal discharge, post nasal drip, sinus pain, sinus pressure, sore throat or other Cardio Cardiovascular: Negative chest pain, chest pain at rest, chest pain with activity, irregular heart rhythm, edema, shortness of breath when lying down, palpitations, murmur or other Resp Respiratory: Positive as per HPI, cough cough: Positive productive (dark) color: Positive green and inhalers; negative shortness of breath, pain with cough, wheezing, chest congestion, chest tightness, pain on inspiration, increase use of rescue inhalers, snoring, apnea or other Gastro Gastrointestional: Negative bloody stools, change in appetite, difficulty swallowing, reflux, hematemesis, melena stool, loose stool, constipation or other Genitourinary: Negative blood in urine, nocturia, pain with urination or other Musc Musculoskeletal: Negative body pain, back pain, neck pain or other Skin/Breast Skin/Breast: Negative dry skin, itching, rash, unusual bruising, breast lump or other Neuro Neurological: Negative restless legs, confusion, weakness or other Psych Psychocological: Negative abnormal sleep pattern, anxiety, thoughts of hurting self/others, hopelessness or other Lymph Lymphatic: Negative easy bleeding, easy bruising, swollen lymph nodes or other Exam Const Constitutional: Positive conversant, cooperative, in no acute respiratory distress, healthy appearing, well developed, well nourished and good hygiene Head Head: Positive normocephalic and atraumatic; negative cyanosis of lips/distal nose Eyes Eye: Positive clear conjunctiva and nystagmus; negative scleral abnormality Ears Ear: Positive hearing normal and external ears normal; negative hard of hearing Nose Nose: Positive external nose normal and no nasal discharge; negative epistaxis Mouth Mouth: Positive oral mucosae normal, no lesions, good dentition and posterior oropharynx is adequate; negative post nasal drip, oral thrush present or malodorous breath Mallampati Score: II: Mallampati Score Neck Neck: Positive normal visual inspection, full ROM and trachea midline; negative lymphadenopathy, JVD or tender Chest Wall Chest: Positive normal inspection of the chest and symmetric chest movement; negative increased A/P diameter Resp lung sounds: Positive diminished, clear to auscultation, normal expiratory time and normal respiratory effort; negative wheeze present on forced exhalation, rhonchi, rales, wheezes, dullness to percussion, use of accessory muscles or increased work of breathing Cardio Cardiac: Positive regular rate, regular rhythm, S1 normal and S2 normal; negative murmur GI GI: Positive normal to inspection and normal bowel sounds; negative distended Genitourinary: Positive deferred Musc Musculoskeletal: Positive steady gait and ROM normal; negative kyphosis or scoliosis Skin Pulmonary Skin Exam: Positive intact; negative rash, lesion, ulcers, erythema, scaly or dermal atrophy Pulses Pulse: Yes pulses normal x4 extremities Extremities Extremities: Yes capillary refill normal, No clubbing, No cyanosis, No edema, No stasis dermatitis Neuro Neurologic: Yes conversant, Yes no focal neuro deficits, Yes cooperative, Yes normal cognition, Yes understands questions, Yes normal concentration, Yes normal coordination Lymph Lymphatic: No lymphadenopathy, No tenderness, No cervical adenopathy, No axillary adenopathy Psych Appearance: Positive grossly normal, eye contact and well kempt Mental Status: Positive mental status grossly normal Mood: Positive congruent mood Affect: Positive normal affect Coding Level of Care Code Off vis,est,level 3 Diagnoses Moderate persistent asthma without complication J45.40 Asthma severity: moderate Asthma persistence: persistent Asthma complication type: uncomplicated 05/26/17 1205 <Electronically signed by Janelle GIRONC> Date Janelle Toro NP-C Cosigner Signature: Date (if applicable) CC: Tarik Espinal ALLERGIES ALLERGIES DATE TYPE / CODE NAME / CODE REACTION SEVERITY SOURCE 04/07/2018 Drug sulfamethoxa Hives Unknown Fer [facility] Allergy/4160 zole/[id number] Hospital [facility](SNOMED 827(RXNORM) Repository CT) 04/07/2018 Drug trimethoprim Hives Unknown Fer [facility] Allergy/4160 /[id number]( Hospital [address]9580(SNOMED RXNORM) Repository CT) ENCOUNTERS ENCOUNTERS ADMIT/DISCHARGE ACCOUNT ADMITTING ENCOUNTER LOCATION SOURCE NUMBER CLASS 04/26/2018 [id number] Ambulatory [facility]pert Ru[facility] 4 [facility] ing:MEDOUTP Repository 04/07/2018/ [id number] Ambulatory BMSBuilding:B Fer 8 5 MS.PMW [facility] Repository 03/29/2018 [id number] Ambulatory Rupert Fer 6 [facility] ing:MEDOUTP Repository 03/01/2018 [id number] Ambulatory Ru[place] Fer 2 [facility] ing:MEDOUTP Repository 02/01/2018 [id number] Ambulatory Rupert Rupert 4 [facility] ing:MEDOUTP Repository 01/04/2018 [id number] Ambulatory Rupert Fer 4 [facility] Hospital ing:MEDOUTP Repository 12/07/2017 [id number] Ambulatory Rupert Fer 3 [facility] Hospital ing:MEDOUTP Repository 12/01/2017/ [id number] Ambulatory BMSBuilding:B Ru[place] 8 9 MS.[facility] Repository 11/09/2017 [id number] Ambulatory Fer Rupert 6 [facility] Hospital ing:MEDOUTP Repository 10/12/2017 [id number] Ambulatory Fer Rupert 1 [facility] Hospital ing:MEDOUTP Repository 10/07/2017/ [id number] Ambulatory BMSBuilding:B Ru[place] 8 3 MS.[facility] Repository 09/14/2017 [id number] Ambulatory Rupert Rupert 8 [facility] Hospital ing:MEDOUTP Repository 08/13/2017 [id number] Ambulatory Rupert Fer 1 [facility] Hospital ing:MEDOUTP Repository 07/16/2017 [id number] Ambulatory Rupert Fer 2 [facility] Hospital ing:MEDOUTP Repository 06/18/2017 [id number] Ambulatory Fer Rupert 7 [facility] Hospital ing:MEDOUTP Repository 05/26/2017/ [id number] Ambulatory BMSBuilding:B Fer 8 7 MS.[facility] Repository 05/21/2017 [id number] Ambulatory Fer Rupert 5 [facility] Hospital ing:MEDOUTP Repository 05/20/2017 [id number] Ambulatory BMS Fer 3 [facility] Repository PAYERS PAYERS ENCOUNTER GUARANTOR PAYER SUBSCRIBER SOURCE 04/26/2018 PAULA [id number] Primary PAULA SOLOMONOB: Rupert PRISCILA PEREZWOOHARVEY, Insurance:MEDICAL [id number] [facility] [address]Zjz: [facility] Number: Repository [place] [id number] Date:[id number] [address] [place] [id number]: 04/26/2018 Secondary NOT GIVENUNK Fer Insurance:SELF PAY [facility] Number: Effective Repository Date:2018-03-29 04/07/2018 PAULA Rivera [id number] Primary PAULA Rivera HAVENDOB: Fer SANCHEZ, Insurance:MEDICAL [id number] [facility] [address]Iqh: [facility] Number: Repository () [id number] Date:1740-43-55IK [place] [phone]: 04/07/2018 Secondary NOT GIVENUNK Fer Insurance:SELF PAY [facility] Number: Effective Repository Date:2018-02-28 03/29/2018 PAULA Rivera [id number] Primary PAULA Rivera HAVENDOB: Fer SANCHEZ, Insurance:MEDICAL [id number] [address]Kqe: [facility] Number: Repository () [id number] Date:0828-85-86WY [address] [place], [place] [phone]: 03/29/2018 Secondary NOT GIVENUNK Fer Insurance:SELF PAY [facility] Number: Effective Repository Date:2018-03-01 03/01/2018 PAULA Rivera [id number] Primary PAULA Rivera HAVENDOB: Fer SANCHEZ, Insurance:MEDICAL [id number] [facility] [address]Rgz: [facility] Number: Repository () [id number] Date:1888-45-68OK [place] [phone]: 03/01/2018 Secondary NOT GIVENUNK [place] Insurance:SELF PAY [facility] Number: Effective Repository Date:2018-02-01 02/01/2018 PAULA Rivera [id number] Primary PAULA Rivera HAVENDOB: Fer SANCHEZ, Insurance:MEDICAL [id number] [facility] [address]Gzc: [facility] Number: Repository () [id number] Date:2845-23-97KC [address] [place] [phone]: 02/01/2018 Secondary NOT GIVENUNK [place] Insurance:SELF PAY [facility] Number: Effective Repository Date:2018-01-04 01/04/2018 PAULA Rivera [id number] Primary PAULA Rivera HAVENDOB: Fer ROBBYYL RDWOOSTER, Insurance:MEDICAL [id number] [facility] [address]Hrb: [facility] Number: Repository () [id number] Date:8975-84-53WW [place] [phone]: 01/04/2018 Secondary NOT GIVENUNK Fer Insurance:SELF PAY [facility] Number: Effective Repository Date:2017-12-07 12/07/2017 PAULA Rivera [id number] Primary PAULA Miguel HAVENDOB: Fer HEYL RDWRAJSTER, Insurance:MEDICAL [id number] [address]Tbf: [facility] Number: Repository () [id number] Date:1372-47-52TN [place] [phone]: 12/07/2017 Secondary NOT GIVENUNK Fer Insurance:SELF PAY [facility] Number: Effective Repository Date:2017-11-09 12/01/2017 PAULA Rivera [id number] Primary PAULA Miguel HAVENDOB: Fer ROBBYYL RDWRAJSTER, Insurance:MEDICAL [id number] [facility] Medical Center [address]Yif: [facility] Number: Repository () [id number] Date:7596-96-71PP [place] [phone]: 12/01/2017 Secondary NOT GIVENUNK [place] Insurance:SELF PAY [facility] Number: Effective Repository Date:2017-11-24 11/09/2017 PAULA B [id number] Primary PAULA B HAVENDOB: Fer HEYL RDWOOSTER, Insurance:MEDICAL [id number] [facility] [address]Yru: [facility] Number: Repository () [id number] Date:0762-25-66FJ [address] [place] [phone]: 11/09/2017 Secondary NOT GIVENUNK [place] Insurance:SELF PAY [facility] Number: Effective Repository Date:2017-10-12 10/12/2017 PAULA Rivera [id number] Primary PAULA Miguel HAVENDOB: Fernancy SANCHEZ, Insurance:MEDICAL [id number] [facility] [address]Bjz: [facility] Number: Repository () [id number] Date:1752-01-88AS [place] [id number]: 10/12/2017 Secondary NOT GIVENUNK Rupert Insurance:SELF PAY [facility] Number: Effective Repository Date:2017-09-14 10/07/2017 PAULA Miguel [id number] Primary PAULA B HAVENDOB: Rupertnancy SANCHEZ, Insurance:MEDICAL [id number] [facility] [address]Cpg: [facility] Number: Repository () [id number] Date:1319-64-92RA [place] [id number]: 10/07/2017 Secondary NOT GIVENUNK Fer Insurance:SELF PAY [facility] Number: Effective Repository Date:2017-10-05 09/14/2017 PAULA Miguel [id number] Primary PAULA B HAVENDOB: Fer SANCHEZ, Insurance:MEDICAL [id number] [facility] [address]Wuo: [facility] Number: Repository () [id number] Date:6110-56-00MP [address] [place], [place] [id number]: 09/14/2017 Secondary NOT GIVENUNK Rupert Insurance:SELF PAY [facility] Number: Effective Repository Date:2017-08-13 08/13/2017 PAULA Rivera [id number] Primary PAULA Rivera HAVENDOB: Fernancy PARADAER, Insurance:MEDICAL [id number] [facility] [place] [address]Wto: [facility] Number: Repository () [id number] Date:7769-79-98NP [place] [id number]: 08/13/2017 Secondary NOT GIVENUNK Rupert Insurance:SELF PAY [facility] Number: Effective Repository Date:2017-07-16 07/16/2017 PAULA Rivera [id number] Primary PAULA Rivera HAVENDOB: Rupert PRISCILA PARADAER, Insurance:MEDICAL [id number] [address]Zli: [facility] Number: Repository () [id number] Date:3125-49-97SR [place] [id number]: 07/16/2017 Secondary NOT GIVENUNK Fer Insurance:SELF PAY [facility] Number: Effective Repository Date:2017-06-18 06/18/2017 PAULA Rivera [id number] Primary PAULA Rivera HAVENDOB: Fer SANCHEZ, Insurance:MEDICAL [id number] [facility] [address]Ixu: [facility] Number: Repository () [id number] Date:0094[place] [id number]: 06/18/2017 Secondary NOT GIVENUNK Rupert Insurance:SELF PAY [facility] Number: Effective Repository Date:2017-05-21 05/26/2017 PAULA Rivera [id number] Primary PAULA Rivera HAVENDOB: Fer PARADAER, Insurance:MEDICAL [id number] [facility] [place] [address]Xfu: [facility] Number: Repository () [id number] Date:1529-15-72IG [address] [place] [id number]: 05/26/2017 Secondary NOT GIVENUNK Rupert Insurance:SELF PAY [facility] Number: Effective Repository Date:2017-03-29 05/21/2017 Paula Rivera [id number] Primary Paula Rivera HavenDOB: Fer Sanchez, Insurance:MEDICAL [id number] [facility] [address]Pbl: [facility] Number: Repository () [id number] Date:4527-76-04JL [address] [place] [id number]: 05/21/2017 Secondary NOT GIVENUNK Rupert Insurance:SELF PAY [facility] Number: Effective Repository Date:2017-04-23 05/20/2017 Paula Miguel [id number] Primary Paula Miguel HavenDOB: Fer Sanchez, Insurance:MEDICAL [id number] [facility] [address]Oqe: [facility] Number: Repository () [id number] Date:4113-82-28AP [address] [place] [id number]: 05/20/2017 Secondary NOT GIVENUNK Rupert Insurance:SELF PAY [facility] Number: Effective Repository Date:2017-05-20
== END ==
PROVIDERS: Family Provider Family Medicine; PCP Family Medicine; Referring Provider Internal Medicine Critical Care Medicine; Visit Provider Internal Medicine Critical Care Medicine
DX: J45.50 Severe persistent asthma, uncomplicated (principal)
CPT/HCPCS: 96372; J2182

== ENCOUNTER → 2018-04-26 15:44 | Outpatient (CLI) | payer OTHER, SELFPAY ==
[2018-03-29 15:52] VITALS: BMI 30.9
[2018-04-07 13:22] VITALS: BMI 30.9
[2018-04-26 15:49] VITALS: BP 121/75; PULSE 64; RESP 16; TEMP 36.3; O2SAT 96; BMI 31.8
[2018-04-26] MEDS: Mepolizumab 100 MG VIAL SQ (16:04)
== END ==
PROVIDERS: Family Provider Family Medicine; PCP Family Medicine; Referring Provider Internal Medicine Critical Care Medicine; Visit Provider Internal Medicine Critical Care Medicine
DX: J45.50 Severe persistent asthma, uncomplicated (principal)
CPT/HCPCS: 96372; J2182

== ENCOUNTER → 2018-05-24 15:39 | Outpatient (CLI) | payer OTHER, SELFPAY ==
[2018-04-26 15:49] VITALS: BMI 31.8
[2018-05-24 15:54] VITALS: BP 124/78; PULSE 64; RESP 18; TEMP 36.3; O2SAT 98; BMI 31.1
[2018-05-24] MEDS: Mepolizumab 100 MG VIAL SQ (16:15)
== END ==
PROVIDERS: Family Provider Family Medicine; PCP Family Medicine; Referring Provider Internal Medicine Critical Care Medicine; Visit Provider Internal Medicine Critical Care Medicine
DX: J45.50 Severe persistent asthma, uncomplicated (principal)
CPT/HCPCS: 96372; J2182

== ENCOUNTER → 2018-06-21 15:23 | Outpatient (CLI) | payer OTHER, SELFPAY ==
[2018-05-24 15:54] VITALS: BMI 31.1
[2018-06-21 15:44] VITALS: BP 123/89; PULSE 67; RESP 16; TEMP 36.8; O2SAT 99; BMI 31.1
[2018-06-21] MEDS: Mepolizumab 100 MG VIAL SQ (15:54)
== END ==
PROVIDERS: Family Provider Family Medicine; PCP Family Medicine; Referring Provider Internal Medicine Critical Care Medicine; Visit Provider Internal Medicine Critical Care Medicine
DX: J45.50 Severe persistent asthma, uncomplicated (principal)
CPT/HCPCS: 96372; J2182

== ENCOUNTER → 2018-06-27 16:15 | Outpatient (CLI) | payer OTHER, SELFPAY ==
[2018-06-21 15:44] VITALS: BMI 31.1
[2018-06-27 18:18] LABS: T4 Free Direct 1.33 ng/dL (0.76-1.46); Thyroid Stim Hormone (TSH) 1.02 uIU/mL (0.358-3.74)
== END ==
PROVIDERS: Family Provider Family Medicine; PCP Family Medicine; Visit Provider Family Medicine
DX: E03.9 Hypothyroidism, unspecified (principal)
CPT/HCPCS: 36415; 84439; 84443

== ENCOUNTER → 2018-07-19 15:42 | Outpatient (CLI) | payer OTHER, SELFPAY ==
[2018-06-21 15:44] VITALS: BMI 31.1
[2018-07-19 15:46] VITALS: BP 131/95; PULSE 74; RESP 16; TEMP 37.2; O2SAT 98; BMI 31.8
[2018-07-19] MEDS: Mepolizumab 100 MG VIAL SQ (16:12)
== END ==
PROVIDERS: Family Provider Family Medicine; PCP Family Medicine; Referring Provider Internal Medicine Critical Care Medicine; Visit Provider Internal Medicine Critical Care Medicine
DX: J45.50 Severe persistent asthma, uncomplicated (principal)
CPT/HCPCS: 96372; J2182

== ENCOUNTER 2018-07-28 23:45 | Emergency (ER) | payer OTHER, SELFPAY ==
[2018-07-26 14:40] VITALS: BMI 33.0
[2018-07-28 23:46] VITALS: BP 151/103; PULSE 99; RESP 18; TEMP 36.7; O2SAT 99; BMI 33.0
--- NOTE | 2018-07-29 00:09 | ED.VIS.GEN ---
History of Present Illness Chief Complaint: Abd Pain Narrative: Stated that for the last 10 days he had some intermittent mild abdominal bloating. Said he feels it more in the right lower. His appendix has been removed remotely. Today he noticed he had some fluid and swelling in his right nissa-testicle. No significant pain. Wanted that checked out. He also noted that his blood pressure has been went up to 150 is normally around 120. He wanted that checked out as well. No significant abdominal tenderness now or pain. Denies any testicular pain. Wanted to make sure he did not have a twisted testicle. No urinary symptoms. He had a hernia fixed on the opposite side remotely. - Past Medical History (1) Shortness of breath Status: Acute (2) Asthma Status: Chronic (3) Dyslipidemia Status: Chronic (4) HTN (hypertension) Status: Chronic (5) Hiatal hernia Status: Chronic (6) Hypothyroid Status: Chronic (7) Nasal polyp Status: Chronic (8) H/O hernia repair Status: Resolved (9) History of appendectomy Status: Resolved (10) Male circumcision Status: Resolved (11) Nasal Polyps Removal Status: Resolved (12) Varicose vein of leg Status: Resolved Past Medical History - Allergies and Home Meds Allergies/Adverse Reactions: Allergies sulfamethoxazole [From Bactrim] Allergy (Verified 07/28/18 23:49) Hives trimethoprim [From Bactrim] Allergy (Verified 07/28/18 23:49) Hives Primary Care Physician: Tarik Espinal MD [Primary Care Provider] - Prior records reviewed: Yes Surgical History: appendectomy, herniorrhaphy Lives: With Family Smoking Status: Never smoker Alcohol: None Drugs: None - Family History Maternal Family History: Family History (Last Reviewed 07/26/18 @ 15:47 by WILLOW Mack) Father Kidney disease Family History: Reports: No pertinent history Review of Systems General: Denies: Chills, Fever, Sweats Eyes: Denies: Visual changes - bilaterally, Diplopia ENT: Denies: Rhinorrhea, Sore throat Cardiovascular: Denies: Chest pain, Palpitations Respiratory: Denies: Dyspnea, Cough, Dyspnea on exertion Gastrointestinal: Reports: - - HPI. Denies: Abdominal pain, Nausea, Vomiting, Diarrhea, Melena, Hematochezia Genitourinary: Reports: - - See HPI. Denies: Dysuria, Hematuria, Frequency Musculoskeletal: Denies: Back pain, Extremity Pain Skin: Denies: Rash, Wounds Neurological: Denies: Headache, Weakness, Numbness Physical Exam Vital Signs/Narrative: Vital Signs Temp Pulse Resp BP Pulse Ox 07/28/18 23:46 98.1 F 99 18 151/103 H 99 General: Well nourished, Well developed, No Acute Distress Head: Normocephalic, Atraumatic Eyes: Perrl, EOMI ENT: Moist mucous membranes, No rhinorrhea Neck: Supple, Nontender Cardiovascular: Regular rate, Regular rhythm, No murmurs Respiratory: No distress, CTA bilaterally, Chest nontender Abdomen: Soft, Nontender, Nondistended, Normal bowel sounds : - - Hemiscrotum has mild swelling compared to the left. Testicle appears normal on the right and left. No significant testicle pain. No abnormal lie. The patient has fluid in his right scrotum consistent with hydrocele. No significant epididymal pain. Back: Nontender, Normal Inspection Extremities: Nontender, No edema Skin: Normal color, No rash Neurological: Alert, Oriented x3, Cranial nerves II-XII grossly intact, Normal Strength, Normal Sensation Psychological: Normal affect, Normal Mood Diagnostic/Tx/Re-eval - Medical Decision Making The patient has a hydrocele of his right testes. I do not feel he has testicular torsion or epididymitis inflammation. I do not think he needs an emergent ultrasound that would require me to call them in this evening. Baseline lab work was obtained due to his occasional abdominal bloating. Lab work shows no significant major abnormalities. Calcium slightly low. AST and ALT are slightly high. I do not feel this is pathologic. He is resting comfortably. I feel he can follow-up as an outpatient with urology for his suspected hydrocele. Again I do not feel this is emergent and I do not feel he has a testicular torsion at all. To follow-up with his family doctor tomorrow and has an appointment for repeat blood pressure check. ED Disposition - Plan for ED Patient: Diagnosis: Hydrocele, Hypertension Instructions: ED Hydrocele Type Not Specified Referrals: Tarik Espinal MD [Primary Care Provider] - Godwin Lantigua MD [STAFF PHYSICIAN] -
[2018-07-29 00:23] LABS: Absolute Lymphocyte Count 1.71 X10^3/ul (0.83-4.51); Absolute Neutrophil Count 5.1 X10^3/uL (2.0-7.7); Basophil# 0.03 X10^3/uL; Basophil% 0.4 % (0-1); Eosinophil# 0.05 X10^3/uL; Eosinophils% 0.6 % (0-5); Hematocrit 42.7 % (40-54); Hemoglobin 14.2 g/dl (13.0-16.5); Lymphocyte # 1.71 X10^3/ul (4.0); Lymphocyte % 22.2 % (19-41); Mean Corp Hgb Conc 33.3 g/gl (32-36); Mean Corpuscular Hgb 29.6 pg (27.0-32.0); Mean Corpuscular Volume 89.1 fL (80-94); Mean Platelet Vol. 11.4 fl (6.2-12.0); Monocyte# 0.78 X10^3/uL; Monocyte% 10.1 % (0-10); Neutrophil # 5.12 X10^3/uL (2.7-7.7); Neutrophil % 66.6 % (47-70); Platelet Count 179 K/mm3 (150-450); RBC Distribution Width CV 14.2 % (11.6-14.6); RBC Distribution Width SD 45.6 fl (35.1-43.9); Red Blood Count 4.79 M/mm3 (4.6-6.2); White Blood Count 7.7 K/mm3 (4.4-11.0)
[2018-07-29 00:25] LABS: POSITIVE COUNT NO; POSITIVE DIFFERENTIAL NO; POSITIVE MORPHOLOGY NO
[2018-07-29 00:53] LABS: ALB/GLOB Ratio 1.4 RATIO (0.9-2.4); AST(SGOT) 39 U/L (15-37); Alanine Aminotransfer ALT/SGPT 72 U/L (16-61); Alkaline Phosphatase 82 U/L (45-117); Anion Gap 7 (5-15); BUN 19 mg/dL (7-18); BUN/Creat Ratio 14.7 RATIO (10-20); Calcium,Total 8.1 mg/dL (8.5-10.1); Chloride 106 mmol/L (98-107); Creatinine, Serum 1.29 mg/dL (0.70-1.30); EST Glomerular Filtration Rate 61 mL/min (>60); Est Glom Filt Rate - Afr Amer 73 mL/min (>60); Estimated Creatinine Clearance 67.67 ml/min; Globulin 2.8 g/dL (2.2-4.2); Glucose 119 mg/dL (74-106); Potassium 3.8 mmol/L (3.5-5.1); Protein, Total 6.8 g/dL (6.4-8.2); Sodium Level 142 mmol/L (136-145)
[2018-07-29 01:11] VITALS: BP 134/103; PULSE 82; RESP 18; O2SAT 95
== END 2018-07-29 01:12 | disposition home or self-care (01) ==
PROVIDERS: Emergency Provider Emergency Medicine; Family Provider Family Medicine; PCP Family Medicine
DX: N43.3 Hydrocele, unspecified (principal); I10 Essential (primary) hypertension; J45.909 Unspecified asthma, uncomplicated; E78.5 Hyperlipidemia, unspecified; E03.9 Hypothyroidism, unspecified; Z79.51 Long term (current) use of inhaled steroids; Z79.899 Other long term (current) drug therapy
CPT/HCPCS: 36415; 80053; 85025; 99282

== ENCOUNTER → 2018-08-05 | Outpatient (CLI) | payer OTHER, SELFPAY ==
[2018-06-21 15:44] VITALS: BMI 31.1
[2018-07-28 23:46] VITALS: BMI 33.0
--- NOTE | 2018-08-05 13:38 | US_ITS ---
STUDY: SCROTUM ULTRASOUND REASON FOR EXAM: Male, 58 years old. Hydrocele TECHNIQUE: Ultrasound evaluation of the scrotum was performed with color Doppler and static lopes-scale imaging. COMPARISON: None. FINDINGS: RIGHT TESTICLE INTRATESTICULAR: There is a normal size of the right testicle. The right testicle measures 4.5 x 3 x 2.5 cm. There is a homogenous echotexture. There is normal arterial and normal venous vascularity. There is no demonstrated right testicular mass or cyst. EXTRATESTICULAR: The epididymis is prominent in size. The epididymis head measures 1.6 cm. There is normal vascularity of the epididymis. There is no demonstrated epididymal cystic structure. There is a large hydrocele with low-level echo texture. There are prominent extratesticular veins consistent with a varicocele and no vascular flow. There is no demonstrated extratesticular mass or cyst. Scrotal wall thickness 0.5 cm. LEFT TESTICLE INTRATESTICULAR: There is a normal size of the left testicle. The left testicle measures 4.2 x 3 x 2 cm. There is a homogenous echotexture. There is normal arterial and normal venous vascularity. There is no demonstrated left testicular mass or cyst. EXTRATESTICULAR: The epididymis is normal in size. The epididymis head measures 1.1 cm. There is normal vascularity of the epididymis. There is no demonstrated epididymal cystic structure. There is no demonstrated hydrocele. There is no demonstrated varicocele. There is no demonstrated extratesticular mass or cyst. US/Testicular with Arterial Flow IMPRESSION: There is no testicular mass, inflammation or torsion. Large right hydrocele. Prominent size of the epididymis, no increased vascularity to suggest inflammation. Suspect right-sided varicocele. Electronically Signed: Litzy Palomares MD at 8:22 EDT , Service support ,
--- NOTE | 2018-08-05 14:36 | ECHOCS_ITS ---
Reason For Study: Systolic Murmur Procedure This was a 2D Doppler, Color Flow transthoracic echocardiogram. Contrast injection was performed. Exam performed in department. Left Ventricle Severely dilated left ventricle. Severe global left ventricular systolic dysfunction. The estimated ejection fraction is 20 %. There is evidence of diastolic dysfunction. Right Ventricle Normal RV size. Normal systolic function. Atria The left atrium is severely enlarged. The right atrium is severely enlarged. No doppler evidence for ASD. Mitral Valve The mitral valve is structurally normal. No prolapse or stenosis seen. Mild papillary muscle dysfunction of the mitral valve. Moderately severe (3+) mitral valve insufficiency. Tricuspid Valve Normal tricuspid valve. Moderately severe (3+) tricuspid valve insufficiency. Right ventricular systolic pressure estimated to be 58 mmHg. Aortic Valve Trisinus/trileaflet aortic valve. Normal aortic valve. Pulmonic Valve The pulmonic valve is not well visualized. Mild (1+) pulmonic valve insufficiency. Great Vessels The aortic root is not well visualized. Pericardium/Pleural No pericardial effusion. Medication 22 gauge I.V. with prn adaptor inserted into right arm. Diluted definity 2ml given slow IV push to enhance endocardial definition. MMode/2D Measurements & Calculations LVIDd: 6.7 cm IVSd: 0.89 cm LA dimension: 5.3 cm LVIDs: 6.3 cm LVPWd: 0.89 cm RVDd: 5.0 cm FS: 5.5 % LAV(MOD-bp): 145.0 ml LVAd ap4: 62.6 cm2 SV(MOD-sp4): 69.1 ml LAV(MOD-bp) Indexed: 63.6 ml/m2 EDV(MOD-sp4): 311.7 ml LAV(MOD-sp2): 130.0 ml EDV(sp4-el): 332.4 ml LAV(MOD-sp4): 138.1 ml LVAs ap4: 52.2 cm2 ESV(MOD-sp4): 242.6 ml ESV(sp4-el): 253.6 ml EF(MOD-sp4): 22.2 % EF(sp4-el): 23.7 % SV(sp4-el): 78.8 ml LA A4 area: 35.8 cm2 RA A4 area: 31.0 cm2 Time Measurements MV dec time: 0.12 sec Doppler Measurements & Calculations MV E max philip: 118.4 cm/sec Lat Peak E' Philip: 5.7 cm/sec Med Peak E' Philip: 6.2 cm/sec MV A max philip: 48.5 cm/sec E/E' lat: 20.6 E/E' med: 19.1 MV E/A: 2.4 MV V2 max: 118.6 cm/sec MV P1/2t max philip: 119.2 cm/sec Ao V2 max: 80.0 cm/sec MV max P.6 mmHg MV P1/2t: 72.6 msec Ao max P.6 mmHg MV V2 mean: 62.0 cm/sec MV mean P.9 mmHg MV dec slope: 481.0 cm/sec2 MV V2 VTI: 20.9 cm MVA(P1/2t): 3.0 cm2 LV V1 max: 49.5 cm/sec MR max philip: 478.0 cm/sec PA V2 max: 84.4 cm/sec LV V1 max P.99 mmHg MR max P.4 mmHg MR mean philip: 334.9 cm/sec MR mean P.1 mmHg MR VTI: 139.5 cm TR max philip: 354.0 cm/sec TR max P.1 mmHg Interpretation Summary Contrast injection was performed. Severely dilated left ventricle. Severe global left ventricular systolic dysfunction. The estimated ejection fraction is 20 %. The left atrium is severely enlarged. The right atrium is severely enlarged. Mild papillary muscle dysfunction of the mitral valve. Moderately severe (3+) mitral valve insufficiency. Moderately severe (3+) tricuspid valve insufficiency. Mild (1+) pulmonic valve insufficiency. Right ventricular systolic pressure estimated to be 58 mmHg. There is evidence of diastolic dysfunction. Ordering Physician: Tarik Espinal Referring Physician: Tarik Espinal Performed By: Emmett Bell RCS
== END | disposition home or self-care (01) ==
LOC: CVS 13:36
PROVIDERS: Family Provider Family Medicine; PCP Family Medicine; Referring Provider Family Medicine; Visit Provider Family Medicine
DX: I51.9 Heart disease, unspecified (principal); R01.1 Cardiac murmur, unspecified; N43.3 Hydrocele, unspecified
CPT/HCPCS: 76870; 93306; 93976; Q9957; A4216; C8929

== ENCOUNTER → 2018-08-08 | Outpatient (CLI) | payer OTHER, SELFPAY ==
[2018-07-26 14:40] VITALS: BMI 33.0
[2018-07-28 23:46] VITALS: BMI 33.0
[2018-08-08 09:00] VITALS: PULSE 102; PULSE 110; PULSE 116; PULSE 120; PULSE 94; PULSE 98; O2SAT 91; O2SAT 93; O2SAT 94; O2SAT 95; O2SAT 96; O2SAT 97
--- NOTE | 2018-08-08 13:03 | PCM.PSN.6M ---
PSN 6 Minute Walk Test - 6 Minute Walk Test 6 Minute Walk Test: 6 Minute Walk Test PSN:6-Minute Walk Test Start: 08/08/18 09:17 Freq: Status: Active Protocol: RESP.6MINW Document 08/08/18 09:00 [id number] (Rec: 08/08/18 09:19 JLA [id number]) 6 Minute Walk Test Date Performed 08/08/18 Time Performed 09:00 Height 6 ft Weight: 235 lb Weight in Pounds 235.[address]: Amor Liu Assistive device used: None Pre-test Oxygen Delivery Method Room Air Pulse Ox (%) 97 Pulse Rate (60-100 beats/min) 102 H Dyspnea Pritesh Scale (0-10) 0.5 Exertion Pritesh Scale (6-20) 6 1st minute Oxygen Delivery Method Room Air Pulse Ox (%) 95 Pulse Rate (60-100 beats/min) 102 H 2nd minute Oxygen Delivery Method Room Air Pulse Ox (%) 96 Pulse Rate (60-100 beats/min) 116 H 3rd minute Oxygen Delivery Method Room Air Pulse Ox (%) 94 Pulse Rate (60-100 beats/min) 110 H 4th minute Oxygen Delivery Method Room Air Pulse Ox (%) 93 Pulse Rate (60-100 beats/min) 94 5th minute Oxygen Delivery Method Room Air Pulse Ox (%) 93 Pulse Rate (60-100 beats/min) 120 H 6th minute Oxygen Delivery Method Room Air Pulse Ox (%) 91 Pulse Rate (60-100 beats/min) 116 H Dyspnea Pritesh Scale (0-10) 2 Exertion Pritesh Scale (6-20) 11 Post-test Oxygen Delivery Method Room Air Pulse Ox (%) 95 Pulse Rate (60-100 beats/min) 98 Full Laps Walked 24 Partial Lap, Number of Tiles Walked 28 Total Distance Walked (ft) 1444 - Interpretation Interpretation: The patient ambulated 1444 feet over the course of 6 minutes beginning on room air without assistive devices or breaks. Pretesting oxygen saturation was noted to be 97% on room air. With ambulation, the alley oxygen saturation was 91%. This represents a significant exertional oxygen desaturation. - Recommendations Recommendations: There is no indication for the use of supplemental oxygen at this time. However, close interval follow-up is recommended, given the degree of oxygen desaturation noted during this study.
== END | disposition home or self-care (01) ==
LOC: PSN 08:37
PROVIDERS: Family Provider Family Medicine; PCP Family Medicine; Referring Provider Nurse Practitioner Acute Care; Visit Provider Nurse Practitioner Acute Care
DX: R06.00 Dyspnea, unspecified (principal)
CPT/HCPCS: 94618

== ENCOUNTER 2018-08-13 10:22 | Emergency (ER) | payer OTHER, SELFPAY ==
[2018-08-11 11:08] VITALS: BMI 32.6
[2018-08-13 10:23] VITALS: BP 145/96; PULSE 103; RESP 16; TEMP 36.9; O2SAT 95; BMI 31.8
[2018-08-13 10:35] VITALS: O2SAT 95
--- NOTE | 2018-08-13 10:50 | RAD_ITS ---
STUDY: X-RAY CHEST REASON FOR EXAM: Male, 58 years old. Shortness of breath for about 6 weeks but it is getting worse. TECHNIQUE: PA and lateral views of the chest. COMPARISON: October 27, 2013 FINDINGS: The lungs are expanded. There is mild prominence of the bronchovascular markings. There is perihilar interstitial thickening and peribronchial cuffing. There is no demonstrated pleural abnormality. There is mild cardiac enlargement. Normal mediastinum and ophelia. There is prominence of the pulmonary hilar arteries with peripheral pulmonary vascular congestion. Normal visualized aortic arch and descending thoracic aorta. There are diffuse degenerative changes of the visualized thoracic spine. Normal visualized ribs, clavicles, and shoulders. There is no demonstrated abnormality of the visualized soft tissue structures of the upper abdomen. RAD/Chest PA and Lateral IMPRESSION: Cardiomegaly and mild pulmonary congestion. Electronically Signed: Marlee Garcia MD at 11:45 EDT , Service support ,
--- NOTE | 2018-08-13 10:50 | EKG12_ITS ---
Test Reason : SOB Blood Pressure : / mmHG Vent. Rate : 098 BPM Atrial Rate : 098 BPM P-R Int : 166 ms QRS Dur : 114 ms QT Int : 382 ms P-R-T Axes : 064 -02 028 degrees QTc Int : 487 ms Sinus rhythm with occasional Premature ventricular complexes Possible Left atrial enlargement Prolonged QT Abnormal ECG Confirmed by KYLE FISCHER, CAROLYN ([id number]), brands editor CALLY MADDEN ([id number]) on 08/15/2018 11:53:04 AM Referred By: BRONWYN Confirmed By:CAROLYN WRIGHT MD
--- NOTE | 2018-08-13 10:52 | ED.VISSUMM ---
- ER Visit Summary Date of Service: 08/13/18 Chief Complaint: Dyspnea History of Present Illness: The patient is a 58 M who presents the emergency department with worsening dyspnea. Patient has a history of asthma and secondary pulmonary hypertension has been seeing Dr. Liu. He recently had a echocardiogram that demonstrated a ejection fraction of 20%. Noted to have severe mitral and tricuspid insufficiency and severe left ventricular hypertrophy/dysfunction. He is scheduled to see cardiology on Wednesday. He has never had a heart catheterization or known coronary artery disease. No familial history of coronary artery disease. He states his dad in his 70s from a presumed heart attack and his sister in her 30s from a presumed heart attack due to lupus. He states he used to be able to sleep in a recliner but now that has become difficult. He notes some leg swelling after work that improves with elevation. He notes labored breathing going up stairs. No chest pains. Physical Examination: Afebrile vital signs are stable noted heart rate of 103. Gen: Well-nourished well-developed Head: Normocephalic atraumatic Eyes: Perrl EOMI ENT: TMs clear no rhinorrhea moist mucous membranes Neck: Supple no lymphadenopathy no JVD nontender CVS: Regular rate rhythm 4 out of 6 systolic murmur Respiratory: No distress clear to auscultation bilaterally chest nontender Abdomen: Soft nontender nondistended normal bowel sounds no masses Back: Nontender Extremity: Nontender no edema Skin: Normal color no rash Neuro: alert orientated ?3 CN II-XII intact normal strength sensation reflexes gait cerebellar Psych: Normal affect normal mood Test Results: EKG demonstrates a sinus rhythm at a rate of 98 with a PVC. CBC is normal. Creatinine 1.54. Troponin negative. Beta natruretic peptide 1197. Chest x-ray with cardiomegaly and mild vascular congestion Emergency Department Course and Treatment: With ambulation the patient's heart rate stays the same with a rate of around 103. His pulse ox stays the same about 96. Patient is on losartan/hydrochlorothiazide. He is on a statin. I spoke with Dr. Sheriff. We are going to add carvedilol as well as Lasix to his regimen. At the time I think the patient is appropriate for discharge. He is not hypoxic or become hypoxic with ambulation. He is comfortable going home as his family. Patient to keep his appointment on Wednesday with Dr. Reeves. Impression: 1. Cardiomyopathy 2. CHF This note was generated with [employer] dictation software. It may contain incorrect words, spelling, and punctuation that were not noted in review of the chart prior to signing ED Disposition - Plan for ED Patient: Disposition: Home or Assisted Living Instructions: ED CHF General, Medications for Cardiomyopathy Prescriptions: Carvedilol 3.125 mg PO DAILY #30 tab Furosemide [Lasix] 40 mg PO DAILY #30 tab Referrals: Chris Reeves MD [STAFF PHYSICIAN] - Keep Mario appointment
[2018-08-13 10:55] VITALS: O2SAT 96
[2018-08-13 11:18] LABS: Absolute Lymphocyte Count 1.18 X10^3/ul (0.83-4.51); Absolute Neutrophil Count 7.6 X10^3/uL (2.0-7.7); Basophil# 0.04 X10^3/uL; Basophil% 0.4 % (0-1); Eosinophil# 0.02 X10^3/uL; Eosinophils% 0.2 % (0-5); Hematocrit 43.8 % (40-54); Hemoglobin 14.2 g/dl (13.0-16.5); Lymphocyte # 1.18 X10^3/ul (4.0); Lymphocyte % 12.1 % (19-41); Mean Corp Hgb Conc 32.4 g/gl (32-36); Mean Corpuscular Hgb 28.8 pg (27.0-32.0); Mean Corpuscular Volume 88.8 fL (80-94); Mean Platelet Vol. 11.5 fl (6.2-12.0); Monocyte# 0.84 X10^3/uL; Monocyte% 8.6 % (0-10); Neutrophil # 7.64 X10^3/uL (2.7-7.7); Neutrophil % 78.6 % (47-70); POSITIVE COUNT NO; POSITIVE DIFFERENTIAL NO; POSITIVE MORPHOLOGY NO; Platelet Count 199 K/mm3 (150-450); RBC Distribution Width CV 14.2 % (11.6-14.6); RBC Distribution Width SD 45.8 fl (35.1-43.9); Red Blood Count 4.93 M/mm3 (4.6-6.2); White Blood Count 9.7 K/mm3 (4.4-11.0)
[2018-08-13 11:39] LABS: ALB/GLOB Ratio 1.3 RATIO (0.9-2.4); AST(SGOT) 31 U/L (15-37); Alanine Aminotransfer ALT/SGPT 61 U/L (16-61); Albumin, Serum 3.9 g/dL (3.2-5.0); Alkaline Phosphatase 88 U/L (45-117); Anion Gap 7 (5-15); BUN 25 mg/dL (7-18); BUN/Creat Ratio 16.2 RATIO (10-20); Calcium,Total 8.7 mg/dL (8.5-10.1); Chloride 108 mmol/L (98-107); Creatinine, Serum 1.54 mg/dL (0.70-1.30); EST Glomerular Filtration Rate 49 mL/min (>60); Est Glom Filt Rate - Afr Amer 60 mL/min (>60); Estimated Creatinine Clearance 56.69 ml/min; Glucose 150 mg/dL (74-106); Protein, Total 6.9 g/dL (6.4-8.2); Sodium Level 143 mmol/L (136-145)
[2018-08-13 11:50] LABS: BNP,B-Type NATRIURETIC PEPTIDE 1197.9 pg/mL (0-100)
[2018-08-13 12:22] VITALS: BP 130/115; PULSE 95; RESP 23; O2SAT 93
[2018-08-13 12:46] VITALS: BP 139/116; PULSE 91; RESP 18; O2SAT 94
[2018-08-13] MEDS: Furosemide 40 MG/4 ML Vial IV (12:47)
== END 2018-08-13 13:00 | disposition home or self-care (01) ==
PROVIDERS: Emergency Provider Emergency Medicine; Family Provider Family Medicine; PCP Family Medicine
DX: I42.9 Cardiomyopathy, unspecified (principal); I11.0 Hypertensive heart disease with heart failure; I50.9 Heart failure, unspecified; J45.909 Unspecified asthma, uncomplicated; I27.20 Pulmonary hypertension, unspecified; Z79.51 Long term (current) use of inhaled steroids; Z79.899 Other long term (current) drug therapy
CPT/HCPCS: 71046; 80053; 83880; 84484; 85025; 93005; 96374; 99284; A4216; J1940

== ENCOUNTER → 2018-08-17 | Outpatient (CLI) | payer OTHER, SELFPAY ==
[2018-07-19 15:46] VITALS: BMI 31.8
[2018-08-16 15:13] VITALS: BMI 32.3
[2018-08-17 15:29] VITALS: BP 113/87; PULSE 79; RESP 18; TEMP 36.6; O2SAT 95; BMI 31.4
[2018-08-17] MEDS: Mepolizumab 100 MG VIAL SQ (15:43)
== END | disposition home or self-care (01) ==
LOC: MEDOUTP 15:22
PROVIDERS: Family Provider Family Medicine; PCP Family Medicine; Referring Provider Internal Medicine Critical Care Medicine; Visit Provider Internal Medicine Critical Care Medicine
DX: J45.50 Severe persistent asthma, uncomplicated (principal)
CPT/HCPCS: 96372; J2182

== ENCOUNTER 2018-08-26 07:24 | Outpatient (CLI) | payer OTHER, SELFPAY ==
--- NOTE | 2018-08-16 15:48 | HP_ITS ---
HPI HPI Surgical H&P: Yes Details: Mr. chan is a very pleasant 58-year-old gentleman with a history of hypertension, non-smoker hyperlipidemia, pulmonary hypertension and sees Dr. Liu, asthma, dilated cardiomyopathy, mitral regurgitation and tricuspid regurgitation, recently admitted for shortness of breath and dyspnea on exertion. Patient went to the emergency room on 08/13/18 with worsening dyspnea on exertion and orthopnea. Patient was started on p.o. Lasix and carvedilol, as he had recently undergone an echocardiogram after Dr. Espinal and then detected cardiac murmurs. His echocardiogram dated 08/05/2018 demonstrated severely dilated left ventricle with an EF around 20%, diastolic dysfunction, 3+ mitral insufficiency, moderate to severe 3+ tricuspid valve insufficiency with an RVSP is estimated to be at least 58 mmHg. No previous echocardiograms available. Apparently the patient had an echo many years ago and presumably had an EF around 45% although we do not have that echocardiogram. He is unaware of his valvular issues. Patient reports that he developed a viral illness sometime around April 2018, which took a long time to resolve, seeking medical attention. At that time he saw Dr. Liu who ordered a 6-minute walk test to evaluate his pulmonary performance. In addition he was severely hypertensive with a blood pressure of 130/115 on 08/13/2018. Since he was seen in the emergency room, he has been doing much better, his legs have normalized, and he has minimal orthopnea/PND. He denies any chest pain symptoms. He has never had a heart catheterization. In our office today his blood pressure is 110/80, pulse is 80 and regular. Physical exam demonstrates clear lungs bilaterally, regular rate and rhythm, a 3/6 holosystolic murmur best heard at the lower left sternal border radiating to his axilla, no diastolic murmurs noted. No S3 or S4. He has no edema. Lipids are pending. Intake Vital Signs 08/16/18 Height 6 ft 08/16/18 Weight: 238 lb 08/16/18 Body Mass Index (BMI) 32.3 08/16/18 Blood Pressure 110/80 08/16/18 Blood Pressure Location Lt brachial 08/16/18 Blood Pressure Position Sitting 08/16/18 Respiratory Rate 20 H 08/16/18 Pulse Rate 80 08/16/18 Pulse Source Auscultation Intake Visit Reasons: CMP (S PRIYANKA) Sampler Tester Required: No Accompanied by: Is patient in pain?: No Allergies sulfamethoxazole [From Bactrim] Allergy (Verified 08/13/18 10:22) Hives trimethoprim [From Bactrim] Allergy (Verified 08/13/18 10:22) Hives Medications Atorvastatin Calcium [Lipitor] 40 mg PO QHS 10/08/13 [History Confirmed 08/16/18] Albuterol Aerosols [Ventolin Aerosols] 2.5 mg INHALATION Q4H PRN PRN 10/30/13 [History Confirmed 08/16/18] Albuterol Inhaler [Ventolin Hfa] 2 puff INHALATION Q4H PRN PRN #1 inhaler 11/02/13 [Rx Confirmed 08/16/18] fluticasone furoate 200 mcg-vilanterol 25 mcg/dose inhalation powder 1 ea INHALATION DAILY #3 device 12/27/17 [Rx Confirmed 08/16/18] Levothyroxine [Synthroid] 175 mcg PO DAILY 02/01/18 [History Confirmed 08/16/18] mepolizumab 100 mg subcutaneous solution 100 mg SC QMONTH 08/10/18 [History Confirmed 08/16/18] Carvedilol 3.125 mg PO DAILY #30 tab 08/13/18 [Rx Confirmed 08/16/18] Furosemide [Lasix] 40 mg PO DAILY #30 tab 08/13/18 [Rx Confirmed 08/16/18] aspirin 81 mg tablet,delayed release 81 mg PO DAILY 08/15/18 [History Confirmed 08/16/18] losartan 100 mg-hydrochlorothiazide 12.5 mg tablet 1 tab PO DAILY 08/15/18 [History Confirmed 08/16/18] clopidogrel 75 mg tablet 75 mg PO DAILY #30 tab 08/16/18 [Rx Confirmed 08/16/18] potassium 99 mg tablet 99 mg PO DAILY 08/16/18 [History Confirmed 08/16/18] [facility] Medical History Diastolic dysfunction (Acute) Biatrial enlargement (Acute) Left ventricular hypertrophy (Acute) Pulmonic valve insufficiency (Acute) Secondary pulmonary hypertension (Acute) Nonrheumatic tricuspid (valve) insufficiency (Acute) Nonrheumatic mitral (valve) insufficiency (Acute) Dilated cardiomyopathy (Acute) Hyperlipidemia (Chronic) Shortness of breath (Acute) Hiatal hernia (Chronic) Asthma (Chronic) HTN (hypertension) (Chronic) Hypothyroid (Chronic) Surgical History H/O hernia repair (Chronic) History of appendectomy (Chronic) History of circumcision (Chronic) History of nasal polypectomy (Chronic) History of varicose vein ligation and stripping (Chronic) Family History Father Kidney disease Social History Smoking Status: Never smoker second hand exposure: Yes alcohol intake: never substance use type: does not use ROS Const Const: Positive for other (Referred by Dr. Espinal for CMP, EF 20%, mitral and tricuspid insuff.); negative for fatigue, weakness, body ache, fever(s), headache(s), chills, frequent falls, night sweats, daytime sleepiness, difficulty sleeping, excessive sweating, weight gain, weight loss, increased appetite, poor appetite or anorexia Eyes Eyes: Negative for blind spots, loss of peripheral vision, transient loss of vision, blurry vision, change in vision, double vision, floaters, tunnel vision or other ENT ENT: Negative for headache(s), dizziness, hearing loss, tinnitus, Nosebleed/epistaxis, balance problems, post nasal drip, lip swelling, tongue swelling, bleeding gums, hoarseness, neck pain, dry mouth or other Cardio Chest Pain: No Edema: None (He hadsome leg edema and abdominal swelling before Lasix) Muscle aches with walking: None Resp Respiratory: Positive for SOB with activity, SOB orthopnea\SOB lying down and Cough (productive yellow sputum in the am); negative for SOB at rest, Coughing up blood/hemoptysis, chest congestion, pain on inspiration, snoring, stridor, wheezing, crackles, paroxysmal nocturnal dyspnea or other GI GI: Negative nausea, vomiting, heartburn, constipation, belching, bloating, cramping, vomiting blood/hematemesis, bright, red blood in stools, black,tarry stools, loose stools, Difficulty Swallowing or other : Negative for hematuria, frequent nighttime urination/ nocturia, erectile dysfunction or abnormal vaginal bleeding Musc Musc: Negative for muscle aches/ myalgia, muscle weakness, joint pain or balance problems Skin Skin: Negative redness, non-healing lesions, rash, unusual bruising, skin ulcer, wounds, jaundice or other Neuro Neuro: Negative for dizziness, lightheadedness, near syncope, syncope, orthostatic symptoms, frequent falls, headache(s), weakness, confusion, memory loss, restless legs, blurry vision, double vision, vertigo, seizures, lack of coordination or other Christopher Hematologic/Lymphatic: Negative for easy bleeding, easy bruising, enlarged lymph nodes or other Endo Endo: Negative for fatigue, cold intolerance, heat intolerance, excessive sweating, flushing, increased thirst/drinking, increased hunger, hair loss, hair growth or other Psych Psych: Negative for anxiety, depression, thoughts of harming anyone, thoughts of harming yourself, visual hallucinations, panic attacks or audible hallucinations Allergy Allergy/Immunology: Negative for throat swelling, Negative for tongue swelling, Negative for hives, Negative for rash, Negative for lip swelling Cardiology Exam Const Appearance: cooperative, healthy appearing and no acute distress Nutritional Appearance: well nourished Orientation: alert, oriented x3 and oriented to person Head Head: normal to inspection, normocephalic and atraumatic Nose: external nose normal Face and Sinus: face symmetric Mouth: oral mucosae normal Eyes General: appearance normal, both eyes and all related structures Eyelids: eyelids normal Conjunctivae: conjunctivae normal Pupils: PERRL and normal by confrontation EOM: EOM intact bilaterally Neck Neck: normal visual inspection and full ROM Carotids: normal carotid upstroke Chest Chest inspection: normal inspection of the chest Auscultation: Bilateral: Clear to Auscultation Cardio Palpation: normal PMI Rate: regular rate Rhythm: regular rhythm Heart sounds: S2 normal Murmur: Grade 3/6 and holosystolic GI GI: normal to inspection, no hepatosplenomegaly and bowel sounds present Neuro General: alert, awake, oriented x3, CN's II-XI intact bilaterally and moves all extremities Skin Skin: no rashes or lesions noted Extremities Pulses: Normal: Right Femoral Pulse, Left Femoral Pulse, Right Dorsalis Pedis Pulse, Left Dorsalis Pedis Pulse, Right Posterior Tibial Pulse, Left Posterior Tibial Pulse, Right Radial Pulse, Left Radial Pulse Lower Extremity Edema: None: Bilateral Psych Psychological: normal affect Assessment & Plan 1. Dilated cardiomyopathy I42.0 EF 45% per echo 08/12/15 decreased to 20% per echo 08/05/2018. Plan 1. Dilated cardiomyopathy: Patient has severe LV dysfunction, had previous moderate LV dysfunction by echocardiogram about 3 years ago with an EF of 45% at that time. His EF is estimated be 20% now with severe LV dilatation superimposed on moderate to severe TR and MR. He also has severe pulmonary hypertension with RVSP of 58 mmHg prior to initiation of Lasix therapy. Since starting Lasix and Coreg in addition to his Hyzaar, the patient has felt much better. I believe he requires evaluation of his mitral and tricuspid valves. In addition he requires a left and right heart catheterization to assess his coronary anatomy and pulmonary pressures in anticipation of possible mitral and tricuspid valve regurgitation repair. Orders Orders: Echo Transesophageal (ALEXANDRA) 08/26/18 Left & Right Heart Cath 08/26/18 2. Nonrheumatic mitral (valve) insufficiency I34.0 Severe (3+) per echo 08/05/2018 Plan 2. Mitral insufficiency/tricuspid insufficiency: The patient's MR may be related to his LV dilatation and geometric distortion causing significant mitral regurgitation. I recommended the patient undergo a transesophageal echocardiogram to more precisely measure his TR and MR followed by a left and right heart catheterization. This will determine whether patient requires bypass surgery as well as mitral and tricuspid valve repair. It looks as though the patient's mitral regurgitation is due to geometric distortion he may require several months of antihypertensive therapy and diuretic therapy followed by repeat echocardiogram to determine if he would benefit from mitral valve and/or tricuspid valve repair. Patient will continue baby aspirin, Coreg but increase to 3.125 mg p.o. twice daily, Lasix and Hyzaar. 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 Once he is completed his cardiac work-up we will then assess his candidacy for returning to work. Orders Orders: Echo Transesophageal (ALEXANDRA) 08/26/18 Left & Right Heart Cath 08/26/18 3. Secondary pulmonary hypertension RVSP 58 mmhg per echo 08/05/2018 Plan 3. Pulmonary hypertension: The patient has a history of pulmonary hypertension which is most likely a combination of his asthma, and now his LV dysfunction with mitral regurgitation. Continue diuretic therapy. I have advised the patient not to drink more than 1500 cc on a daily basis as well as to measure his weight on a daily basis and to take an extra Lasix should he go by more than 3 pounds from the day before. 4. Hyperlipidemia: We will check the patient's LDL and HDL cholesterol with a fasting lipid profile. His most recent lipids took place on 03/17/2014 which showed an LDL of 58 and HDL of 32. 5. Return office in 6 months. 4. Hyperlipidemia E78.5 Orders Orders: Left & Right Heart Cath 08/26/18 Plan Detail Other Orders Orders: Echo Transesophageal (ALEXANDRA) 08/26/18 I36.1, I37.1, I50.9, I51.7, I51.89 Left & Right Heart Cath 08/26/18 I36.1, I37.1, I51.7, I51.89, R06.02 Other Medications New: potassium 99 mg PO DAILY clopidogrel (Plavix) 75 mg PO DAILY 30 tabs 3RF Follow Up +6M (Leandro) Coding Level of Care Code Off vis,new,level 4 Diagnoses Dilated cardiomyopathy I42.0 Nonrheumatic mitral (valve) insufficiency I34.0 Secondary pulmonary hypertension Hyperlipidemia E78.5 Coding Level of Care Code Off vis,new,level 4 Diagnoses Dilated cardiomyopathy I42.0 Nonrheumatic mitral (valve) insufficiency I34.0 Secondary pulmonary hypertension Hyperlipidemia E78.5 Supplemental Info Supplemental Information Labs LDL Cholesterol 58 mg/dL (0-130) 03/17/14 HDL Cholesterol 32 mg/dL (40-) L 03/17/14 Triglycerides 281 mg/dL (0-199) H 03/17/14 VLDL Cholesterol 56 mg/dL (5-40) H 03/17/14 Diagnostics Electrocardiogram 08/13/18 Echocardiogram 08/05/18 Chest X-Ray 08/13/18 Pulmonary Pulmonary Function Test 08/12/15 Pulmonary Exercise Test 08/08/18 08/16/18 [id number] <Electronically signed by Chris Reeves MD> Date Chris Reeves MD
[2018-08-17 15:29] VITALS: BMI 31.4
[2018-08-25 07:30] VITALS: BMI 32.3
--- NOTE | 2018-08-26 08:42 | ECHOTEE_ITS ---
Reason For Study: Valve Replacement Eval Medication ALEXANDRA probe passed with minimal difficulty. No complications were noted. [id number] gargled and swallowed. Cetacaine Topical [place] given X2 orally. Versed 2 mg given slow IVP. Fentanyl 25 mcg given slow IVP. Performed a rapid injection of agitated mix of 9 cc saline and 1cc air to assess for atrial septal defect. Left Ventricle Severely dilated left ventricle. The estimated ejection fraction is 10 %. There is severe global hypokinesis of the left ventricle. Right Ventricle Severely dilated right ventricle. Moderate global right ventricular systolic dysfunction. Atria Normal atrial septum. Bubble contrast study negative for right to left interatrial shunt. The left atrium is severely enlarged. No thrombus is detected in the left atrial appendage. The right atrium is moderately enlarged. Prominent eustachian valve. Mitral Valve The mitral valve is structurally normal. No prolapse or stenosis seen. Severe (4+) mitral valve insufficiency. Tricuspid Valve Normal tricuspid valve. Moderate (2+) tricuspid valve insufficiency. Right ventricular systolic pressure estimated to be 47 mmHg. Moderate pulmonary hypertension. Aortic Valve Normal aortic valve. Trisinus/trileaflet aortic valve. Pulmonic Valve Normal pulmonic valve. Vessels Normal aortic root. Normal arch. Dilated pulmonary veins. Pulmonary venous flow normal. Pericardium No pericardial effusion. Interpretation Summary Severely dilated left ventricle. The estimated ejection fraction is 10 %. There is severe global hypokinesis of the left ventricle. Severely dilated right ventricle. Moderate global right ventricular systolic dysfunction. Bubble contrast study negative for right to left interatrial shunt. The left atrium is severely enlarged. Severe (4+) mitral valve insufficiency. Moderate (2+) tricuspid valve insufficiency. Right ventricular systolic pressure estimated to be 47 mmHg, but may be underestimated. Moderate pulmonary hypertension. No thrombus is detected in the left atrial appendage. Ordering Physician: Chris Reeves Referring Physician: Chris Reeves Performed By: Brodwolf, Emmett, RCS
[2018-08-26 10:20] LABS: Blood Gas Specimen Type VEN; VBG BASE EXCESS 3 mmol/L (-1.0-3.5); VBG Bicarbonate 28 mmol/L (22-26); VBG Oxygen Content 29 mmol/L (23-33); VBG PO2 30 mmHg (25-40); VBG SO2 56 % (50-70); VBG pCO2 45.2 mmHg (41-51)
[2018-08-26 10:20] LABS: Base Excess 1 mmol/L (-2 to +2); Bicarbonate 24.3 mmol/L (22-26); Blood Gas Specimen Type ART; PO2 71 mmHG (75-100); SO2 95 % (95-99); Total Carbon Dioxide 25 mmol/L; pCO2 33.3 mmHg (35-45); pH 7.47 (7.35-7.45)
[2018-08-26 10:20] LABS: Blood Gas Specimen Type VEN; VBG BASE EXCESS 2 mmol/L (-1.0-3.5); VBG Bicarbonate 27 mmol/L (22-26); VBG Oxygen Content 29 mmol/L (23-33); VBG PO2 29 mmHg (25-40); VBG SO2 55 % (50-70); VBG pCO2 44.2 mmHg (41-51)
--- NOTE | 2018-08-26 10:25 | PCM.HP.BLA ---
Problem List (1) Biatrial enlargement Status: Acute Comment: Both atria severely enlarged per echo 08/05/2018 (2) Diastolic dysfunction Status: Acute (3) Dilated cardiomyopathy Status: Acute Comment: EF 45% per echo 08/12/15 decreased to 20% per echo 08/05/2018. (4) Left ventricular hypertrophy Status: Acute Comment: Severe per echo 08/05/18 (5) Nonrheumatic mitral (valve) insufficiency Status: Acute Comment: Severe (3+) per echo 08/05/2018 (6) Nonrheumatic tricuspid (valve) insufficiency Status: Acute Comment: Severe (3+) per echo 08/05/2018; RVSP 58 mmhg (7) Secondary pulmonary hypertension Status: Acute Comment: RVSP 58 mmhg per echo 08/05/2018 (8) Shortness of breath Status: Acute (9) HTN (hypertension) Status: Chronic (10) Hyperlipidemia Status: Chronic History and Physical Date of Admission: 08/26/18 [facility] HPI Surgical H&P: Yes Details: Mr. chan is a very pleasant 58-year-old gentleman with a history of hypertension, non-smoker hyperlipidemia, pulmonary hypertension and sees Dr. Liu, asthma, dilated cardiomyopathy, mitral regurgitation and tricuspid regurgitation, recently admitted for shortness of breath and dyspnea on exertion. Patient went to the emergency room on 08/13/18 with worsening dyspnea on exertion and orthopnea. Patient was started on p.o. Lasix and carvedilol, as he had recently undergone an echocardiogram after Dr. Espinal and then detected cardiac murmurs. His echocardiogram dated 08/05/2018 demonstrated severely dilated left ventricle with an EF around 20%, diastolic dysfunction, 3+ mitral insufficiency, moderate to severe 3+ tricuspid valve insufficiency with an RVSP is estimated to be at least 58 mmHg. No previous echocardiograms available. Apparently the patient had an echo many years ago and presumably had an EF around 45% although we do not have that echocardiogram. He is unaware of his valvular issues. Patient reports that he developed a viral illness sometime around April 2018, which took a long time to resolve, seeking medical attention. At that time he saw Dr. Liu who ordered a 6-minute walk test to evaluate his pulmonary performance. In addition he was severely hypertensive with a blood pressure of 130/115 on 08/13/2018. Since he was seen in the emergency room, he has been doing much better, his legs have normalized, and he has minimal orthopnea/PND. He denies any chest pain symptoms. He has never had a heart catheterization. In our office today his blood pressure is 110/80, pulse is 80 and regular. Physical exam demonstrates clear lungs bilaterally, regular rate and rhythm, a 3/6 holosystolic murmur best heard at the lower left sternal border radiating to his axilla, no diastolic murmurs noted. No S3 or S4. He has no edema. Lipids are pending. Intake Vital Signs 08/16/18 Height 6 ft 08/16/18 Weight: 238 lb 08/16/18 Body Mass Index (BMI) 32.3 08/16/18 Blood Pressure 110/80 08/16/18 Blood Pressure Location Lt brachial 08/16/18 Blood Pressure Position Sitting 08/16/18 Respiratory Rate 20 H 08/16/18 Pulse Rate 80 08/16/18 Pulse Source Auscultation Intake Visit Reasons: CMP (Karyn ESPINAL) Technical Training Coordinator Required: No Accompanied by: Is patient in pain?: No Allergies sulfamethoxazole [From Bactrim] Allergy (Verified 08/13/18 10:22) Hives trimethoprim [From Bactrim] Allergy (Verified 08/13/18 10:22) Hives Medications Atorvastatin Calcium [Lipitor] 40 mg PO QHS 10/08/13 [History Confirmed 08/16/18] Albuterol Aerosols [Ventolin Aerosols] 2.5 mg INHALATION Q4H PRN PRN 10/30/13 [History Confirmed 08/16/18] Albuterol Inhaler [Ventolin Hfa] 2 puff INHALATION Q4H PRN PRN #1 inhaler 11/02/13 [Rx Confirmed 08/16/18] fluticasone furoate 200 mcg-vilanterol 25 mcg/dose inhalation powder 1 ea INHALATION DAILY #3 device 12/27/17 [Rx Confirmed 08/16/18] Levothyroxine [Synthroid] 175 mcg PO DAILY 02/01/18 [History Confirmed 08/16/18] mepolizumab 100 mg subcutaneous solution 100 mg SC QMONTH 08/10/18 [History Confirmed 08/16/18] Carvedilol 3.125 mg PO DAILY #30 tab 08/13/18 [Rx Confirmed 08/16/18] Furosemide [Lasix] 40 mg PO DAILY #30 tab 08/13/18 [Rx Confirmed 08/16/18] aspirin 81 mg tablet,delayed release 81 mg PO DAILY 08/15/18 [History Confirmed 08/16/18] losartan 100 mg-hydrochlorothiazide 12.5 mg tablet 1 tab PO DAILY 08/15/18 [History Confirmed 08/16/18] clopidogrel 75 mg tablet 75 mg PO DAILY #30 tab 08/16/18 [Rx Confirmed 08/16/18] potassium 99 mg tablet 99 mg PO DAILY 08/16/18 [History Confirmed 08/16/18] [facility] Medical History Diastolic dysfunction (Acute) Biatrial enlargement (Acute) Left ventricular hypertrophy (Acute) Pulmonic valve insufficiency (Acute) Secondary pulmonary hypertension (Acute) Nonrheumatic tricuspid (valve) insufficiency (Acute) Nonrheumatic mitral (valve) insufficiency (Acute) Dilated cardiomyopathy (Acute) Hyperlipidemia (Chronic) Shortness of breath (Acute) Hiatal hernia (Chronic) Asthma (Chronic) HTN (hypertension) (Chronic) Hypothyroid (Chronic) Surgical History H/O hernia repair (Chronic) History of appendectomy (Chronic) History of circumcision (Chronic) History of nasal polypectomy (Chronic) History of varicose vein ligation and stripping (Chronic) Family History Father Kidney disease Social History Smoking Status: Never smoker second hand exposure: Yes alcohol intake: never substance use type: does not use ROS Const Const: Positive for other (Referred by Dr. Espinal for CMP, EF 20%, mitral and tricuspid insuff.); negative for fatigue, weakness, body ache, fever(s), headache(s), chills, frequent falls, night sweats, daytime sleepiness, difficulty sleeping, excessive sweating, weight gain, weight loss, increased appetite, poor appetite or anorexia Eyes Eyes: Negative for blind spots, loss of peripheral vision, transient loss of vision, blurry vision, change in vision, double vision, floaters, tunnel vision or other ENT ENT: Negative for headache(s), dizziness, hearing loss, tinnitus, Nosebleed/epistaxis, balance problems, post nasal drip, lip swelling, tongue swelling, bleeding gums, hoarseness, neck pain, dry mouth or other Cardio Chest Pain: No Edema: None (He hadsome leg edema and abdominal swelling before Lasix) Muscle aches with walking: None Resp Respiratory: Positive for SOB with activity, SOB orthopnea\SOB lying down and Cough (productive yellow sputum in the am); negative for SOB at rest, Coughing up blood/hemoptysis, chest congestion, pain on inspiration, snoring, stridor, wheezing, crackles, paroxysmal nocturnal dyspnea or other GI GI: Negative nausea, vomiting, heartburn, constipation, belching, bloating, cramping, vomiting blood/hematemesis, bright, red blood in stools, black,tarry stools, loose stools, Difficulty Swallowing or other : Negative for hematuria, frequent nighttime urination/ nocturia, erectile dysfunction or abnormal vaginal bleeding Musc Musc: Negative for muscle aches/ myalgia, muscle weakness, joint pain or balance problems Skin Skin: Negative redness, non-healing lesions, rash, unusual bruising, skin ulcer, wounds, jaundice or other Neuro Neuro: Negative for dizziness, lightheadedness, near syncope, syncope, orthostatic symptoms, frequent falls, headache(s), weakness, confusion, memory loss, restless legs, blurry vision, double vision, vertigo, seizures, lack of coordination or other Christopher Hematologic/Lymphatic: Negative for easy bleeding, easy bruising, enlarged lymph nodes or other Endo Endo: Negative for fatigue, cold intolerance, heat intolerance, excessive sweating, flushing, increased thirst/drinking, increased hunger, hair loss, hair growth or other Psych Psych: Negative for anxiety, depression, thoughts of harming anyone, thoughts of harming yourself, visual hallucinations, panic attacks or audible hallucinations Allergy Allergy/Immunology: Negative for throat swelling, Negative for tongue swelling, Negative for hives, Negative for rash, Negative for lip swelling Cardiology Exam Const Appearance: cooperative, healthy appearing and no acute distress Nutritional Appearance: well nourished Orientation: alert, oriented x3 and oriented to person Head Head: normal to inspection, normocephalic and atraumatic Nose: external nose normal Face and Sinus: face symmetric Mouth: oral mucosae normal Eyes General: appearance normal, both eyes and all related structures Eyelids: eyelids normal Conjunctivae: conjunctivae normal Pupils: PERRL and normal by confrontation EOM: EOM intact bilaterally Neck Neck: normal visual inspection and full ROM Carotids: normal carotid upstroke Chest Chest inspection: normal inspection of the chest Auscultation: Bilateral: Clear to Auscultation Cardio Palpation: normal PMI Rate: regular rate Rhythm: regular rhythm Heart sounds: S2 normal Murmur: Grade 3/6 and holosystolic GI GI: normal to inspection, no hepatosplenomegaly and bowel sounds present Neuro General: alert, awake, oriented x3, CN's II-XI intact bilaterally and moves all extremities Skin Skin: no rashes or lesions noted Extremities Pulses: Normal: Right Femoral Pulse, Left Femoral Pulse, Right Dorsalis Pedis Pulse, Left Dorsalis Pedis Pulse, Right Posterior Tibial Pulse, Left Posterior Tibial Pulse, Right Radial Pulse, Left Radial Pulse Lower Extremity Edema: None: Bilateral Psych Psychological: normal affect Assessment & Plan 1. Dilated cardiomyopathy I42.0 EF 45% per echo 08/12/15 decreased to 20% per echo 08/05/2018. Plan 1. Dilated cardiomyopathy: Patient has severe LV dysfunction, had previous moderate LV dysfunction by echocardiogram about 3 years ago with an EF of 45% at that time. His EF is estimated be 20% now with severe LV dilatation superimposed on moderate to severe TR and MR. He also has severe pulmonary hypertension with RVSP of 58 mmHg prior to initiation of Lasix therapy. Since starting Lasix and Coreg in addition to his Hyzaar, the patient has felt much better. I believe he requires evaluation of his mitral and tricuspid valves. In addition he requires a left and right heart catheterization to assess his coronary anatomy and pulmonary pressures in anticipation of possible mitral and tricuspid valve regurgitation repair. Orders Orders: Echo Transesophageal (ALEXANDRA) 08/26/18 Left & Right Heart Cath 08/26/18 2. Nonrheumatic mitral (valve) insufficiency I34.0 Severe (3+) per echo 08/05/2018 Plan 2. Mitral insufficiency/tricuspid insufficiency: The patient's MR may be related to his LV dilatation and geometric distortion causing significant mitral regurgitation. I recommended the patient undergo a transesophageal echocardiogram to more precisely measure his TR and MR followed by a left and right heart catheterization. This will determine whether patient requires bypass surgery as well as mitral and tricuspid valve repair. It looks as though the patient's mitral regurgitation is due to geometric distortion he may require several months of antihypertensive therapy and diuretic therapy followed by repeat echocardiogram to determine if he would benefit from mitral valve and/or tricuspid valve repair. Patient will continue baby aspirin, Coreg but increase to 3.125 mg p.o. twice daily, Lasix and Hyzaar. 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 Once he is completed his cardiac work-up we will then assess his candidacy for returning to work. Orders Orders: Echo Transesophageal (ALEXANDRA) 08/26/18 Left & Right Heart Cath 08/26/18 3. Secondary pulmonary hypertension RVSP 58 mmhg per echo 08/05/2018 Plan 3. Pulmonary hypertension: The patient has a history of pulmonary hypertension which is most likely a combination of his asthma, and now his LV dysfunction with mitral regurgitation. Continue diuretic therapy. I have advised the patient not to drink more than 1500 cc on a daily basis as well as to measure his weight on a daily basis and to take an extra Lasix should he go by more than 3 pounds from the day before. 4. Hyperlipidemia: We will check the patient's LDL and HDL cholesterol with a fasting lipid profile. His most recent lipids took place on 03/17/2014 which showed an LDL of 58 and HDL of 32. 5. Return office in 6 months. 4. Hyperlipidemia E78.5 Orders Orders: Left & Right Heart Cath 08/26/18 Plan Detail Other Orders Orders: Echo Transesophageal (ALEXANDRA) 08/26/18 I36.1, I37.1, I50.9, I51.7, I51.89 Left & Right Heart Cath 08/26/18 I36.1, I37.1, I51.7, I51.89, R06.02 Other Medications New: potassium 99 mg PO DAILY clopidogrel (Plavix) 75 mg PO DAILY 30 tabs 3RF Follow Up +6M (Reeves) Coding Level of Care Code Off vis,new,level 4 Diagnoses Dilated cardiomyopathy I42.0 Nonrheumatic mitral (valve) insufficiency I34.0 Secondary pulmonary hypertension Hyperlipidemia E78.5 Coding Level of Care Code Off vis,new,level 4 Diagnoses Dilated cardiomyopathy I42.0 Nonrheumatic mitral (valve) insufficiency I34.0 Secondary pulmonary hypertension Hyperlipidemia E78.5 Supplemental Info Supplemental Information Labs LDL Cholesterol 58 mg/dL (0-130) 03/17/14 HDL Cholesterol 32 mg/dL (40-) L 03/17/14 Triglycerides 281 mg/dL (0-199) H 03/17/14 VLDL Cholesterol 56 mg/dL (5-40) H 03/17/14 Diagnostics Electrocardiogram 08/13/18 Echocardiogram 08/05/18 Chest X-Ray 08/13/18 Pulmonary Pulmonary Function Test 08/12/15 Pulmonary Exercise Test 08/08/18 08/16/18 1548<Electronically signed by Chris Reeves MD> Date Chris Reeves MD 08/25/18 0905<Electronically signed by Chris Reeves MD> Date: Time: Chris Reeves MD CC: Chris Reeves MD; Tarik Espinal MD ~ Date Dictated:08/16/18 1548 Date Transcribed: 08/25/18 0807 Unit Technician: Signed Attending addendum: Patient seen and examined today prior to transesophageal echocardiogram. No appreciable changes in the patient's condition since her last visit on 08/16/2018. The patient will proceed with left and right heart catheterization after his transesophageal echocardiogram has been completed. This note was generated using a voice recognition system and there may be incorrect words, spelling or punctuation that were not noted when reviewing the office note prior to saving.
--- NOTE | 2018-08-26 10:44 | CL.D_ITS ---
Patient Name: PAULA SHAVER Study Date: 08/26/2018 Performing: Chris Reeves MD Ht: 72 inches 183 cm : 1960 Wt: 238.4 lbs 108 kg Age: 58 Gender: male BSA: 2.3 PROCEDURE(S) PERFORMED HS59-TDH/LHC/COR/LV CLINICAL PROFILE AND INDICATIONS Indications: Suspected CAD, Valvular Disease, Cardiomyopathy, LV Dysfunction Heart Failure: NYHA Class: 1, Newly Diagnosed: Yes, Heart Failure Type: Systolic Stress/Imaging Stress/Image Study Performed: No Angina Classification Anginal Classification w/in 2 Weeks: No symptoms CAD Presentations: Other: Severe LV dysfunction, severe MR. moderate to severeTR Comorbidities/Risk Factors: Prior CHF CONCLUSIONS Normal coronary arteries Global LV systolic dysfunction- Severe LVEF: by LV gram 15 % Depressed Left Ventricular systolic function - Severe Elevated Left Ventricular End Diastolic Pressure The patient has pulmonary hypertension which is moderate. RECOMMENDATIONS Management as per referring Software Development Advisor Medical therapy vs. Surgical Intervention Surgery consult for valvular disease D/c plavix, start xeralto on 08/29/2018, start Cozaar 25mg po daily. CV surgery consult with [facility] for MV and TV repair vs OHT. DESCRIPTION OF PROCEDURE The patient arrived to the procedure lab. The risks and benefits of the procedure as well as a full d escription of our services here and current unavailability of surgical backup were fully explained to the patient and/or their significant other prior to the catheterization. The Timeout was completed, verifying the correct patient and procedure. The patient's procedural site was prepped and draped in the usual fashion. Local anesthetic was given subcutaneously to right groin region with Lidocaine 2%. Using a modified Seldinger technique, arterial access was obtained via the right femoral artery, a 4 Fr sheath was inserted Venous access was obtained via the right femoral vein, a 7Fr sheath was insert ed. A 7Fr thermal dilution catheter was inserted and right heart pressures were recorded, it was then advanced to PA position for cardiac outputs. The Thermal dilution catheter was then removed. Left Ve ntriculography was performed in STOCK projection using a 4 Fr. Pigtail catheter. LV to AO pullback pressures were then recorded. Left Coronary Artery selective angiography was performed in mu ltiple views using a 4 Fr. JL5 catheter. Right Coronary Artery selective angiography was then perform ed in multiple views using a 4 Fr. 3DRC catheter.The arterial sheath was pulled and manual compressio n applied until hemostasis is achieved.. The arterial sheath was pulled and manual compression applie d until hemostasis is achieved. CORONARY ANGIOGRAPHY DOMINANCE: Right Dominant LEFT HEART ASSESSMENT Left Ventricular Ejection Fraction: by LV Gram 15 % Global Hypokinesis - Severe Depressed Left Ventricular systolic function LVEDP: 18 mmHg Elevated Left Ventricular End Diastolic Pressure Cardiomyopathy: Congestive Cardiomyopathy: Dilated RIGHT HEART ASSESSMENT Toni CO: 4.06 Toni CI: 1.77 PW: 17 PA: 58/27 40 RV: 47/2 15 RA: 02/25 7 PVR: 453 SVR: 1773 Right Heart pressures - elevated Pulmonary Hypertension Moderate LEFT MAIN: Angiographically normal LEFT ANTERIOR DESCENDING ARTERY: Angiographically normal CIRCUMFLEX ARTERY: Angiographically normal RIGHT CORONARY ARTERY: Angiographically normal COMPLICATIONS No Complications PROCEDURE MEDICATIONS SUMMARY OF HEMODYNAMIC DATA Time AIR REST ECG 08:05:56 RA 11/ (7) SV 09:56:34 RV 47/2, 15 09:56:50 PA 58/27 (40) PA 10:05:23 PW 17/ (17) PV 10:06:35 LV 114/-5, 20 10:10:35 LV 113/-7, 17 10:10:42 LV 112/-1, 19 10:12:03 LVp 115/-1, 20 10:12:08 AOp 112/87 (96) 10:12:13 AO 103/89 (97) SA 10:14:11 Type SV CO (l/m) CI (l/m/ HR Time AIR REST Toni 46.10 4.06 1.77 88 08:05:56 Label % O2 Pres/Loc Time AIR REST AO 95 PV 10:17:27 PA 56 PA 10:17:49 Signed By Chris Reeves MD On 08/26/2018 13:04:22 Chris Reeves MD
== END 2018-08-26 15:00 | disposition home or self-care (01) ==
LOC: CLSP 07:24
PROVIDERS: Family Provider Family Medicine; PCP Family Medicine; Referring Provider Internal Medicine Cardiovascular Disease; Visit Provider Internal Medicine Cardiovascular Disease
DX: I25.10 Atherosclerotic heart disease of native coronary artery without angina pectoris (principal); I08.1 Rheumatic disorders of both mitral and tricuspid valves; Z79.899 Other long term (current) drug therapy; Z79.82 Long term (current) use of aspirin; Z79.02 Long term (current) use of antithrombotics/antiplatelets; I27.20 Pulmonary hypertension, unspecified; E78.5 Hyperlipidemia, unspecified; J45.909 Unspecified asthma, uncomplicated; E03.9 Hypothyroidism, unspecified; I10 Essential (primary) hypertension; I42.0 Dilated cardiomyopathy
CPT/HCPCS: 82803; 93312; 93320; 93325; 93460; J7040; Q9967; A4216; C1751; C1769; C1894

== ENCOUNTER → 2018-09-09 | Outpatient (CLI) | payer OTHER, SELFPAY ==
[2018-09-09 14:38] VITALS: BMI 29.7
[2018-09-09 17:38] LABS: Anion Gap 4 (5-15); BUN 32 mg/dL (7-18); BUN/Creat Ratio 22.5 RATIO (10-20); Calcium,Total 9.1 mg/dL (8.5-10.1); Chloride 101 mmol/L (98-107); Creatinine, Serum 1.42 mg/dL (0.70-1.30); EST Glomerular Filtration Rate 54 mL/min (>60); Est Glom Filt Rate - Afr Amer 66 mL/min (>60); Glucose 83 mg/dL (74-106); Potassium 3.5 mmol/L (3.5-5.1); Sodium Level 139 mmol/L (136-145)
== END | disposition home or self-care (01) ==
LOC: LAB 15:40
PROVIDERS: Family Provider Family Medicine; PCP Family Medicine; Referring Provider Physician Assistant Medical; Visit Provider Physician Assistant Medical
DX: I42.0 Dilated cardiomyopathy (principal); I10 Essential (primary) hypertension
CPT/HCPCS: 36415; 80048

== ENCOUNTER → 2018-09-14 | Outpatient (CLI) | payer OTHER, SELFPAY ==
[2018-08-17 15:29] VITALS: BMI 31.4
[2018-09-09 14:38] VITALS: BMI 29.7
[2018-09-14 15:32] VITALS: BP 108/73; PULSE 62; RESP 16; TEMP 36.5; O2SAT 97; BMI 29.4
[2018-09-14] MEDS: Mepolizumab 100 MG VIAL SQ (15:36)
== END | disposition home or self-care (01) ==
LOC: MEDOUTP 15:16
PROVIDERS: Family Provider Family Medicine; PCP Family Medicine; Referring Provider Internal Medicine Critical Care Medicine; Visit Provider Internal Medicine Critical Care Medicine
DX: J45.50 Severe persistent asthma, uncomplicated (principal)
CPT/HCPCS: 96372; J2182

== ENCOUNTER → 2018-09-22 | Outpatient (CLI) | payer OTHER, SELFPAY ==
[2018-04-07 13:22] VITALS: BMI 30.9
[2018-09-14 15:32] VITALS: BMI 29.4
--- NOTE | 2018-09-23 06:35 | PFT ---
INTRODUCTION: The patient is a 58-year-old male that presents for pulmonary function studies secondary to a diagnosis of asthma. Respiratory therapy reports good patient effort. Bronchodilators were used during testing. INTERPRETATION: Forced expiration spirometry demonstrates no evidence of a large airways obstructive ventilatory defect. There was no significant response to aerosolized bronchodilators, based upon strict ATS criteria. Spirograms are of good quality and plateau gradually. Body plethysmography was performed and reveals lung volumes to be within normal limits. Diffusing capacity by single breath CO is also within normal limits. When compared to previous pulmonary function studies dated July 2015, there has been a 13% reduction in TLC and 13% reduction in DLCO. IMPRESSION: Normal spirometry, lung volumes and diffusing capacity. There have been changes noted in the patient's PFTs since 2015, as noted above.
== END | disposition home or self-care (01) ==
LOC: PSN 12:21
PROVIDERS: Family Provider Family Medicine; PCP Family Medicine; Referring Provider Internal Medicine Critical Care Medicine; Visit Provider Internal Medicine Critical Care Medicine
DX: J45.909 Unspecified asthma, uncomplicated (principal); J33.9 Nasal polyp, unspecified
CPT/HCPCS: 94060; 94726; 94729

== ENCOUNTER → 2018-10-12 14:38 | Outpatient (CLI) | payer OTHER, SELFPAY ==
[2018-09-14 15:32] VITALS: BMI 29.4
[2018-10-10 14:04] VITALS: BMI 29.5
[2018-10-12 14:44] VITALS: BP 110/73; PULSE 62; RESP 16; TEMP 36.7; O2SAT 97; BMI 29.5
[2018-10-12] MEDS: Mepolizumab 100 MG VIAL SQ (15:17)
== END ==
PROVIDERS: Family Provider Family Medicine; PCP Family Medicine; Referring Provider Internal Medicine Critical Care Medicine; Visit Provider Internal Medicine Critical Care Medicine
DX: J45.50 Severe persistent asthma, uncomplicated (principal)
CPT/HCPCS: 96372

== ENCOUNTER → 2018-11-09 | Outpatient (CLI) | payer OTHER, SELFPAY ==
[2018-10-12 14:44] VITALS: BMI 29.5
[2018-11-09 14:58] VITALS: BP 109/69; PULSE 66; RESP 18; TEMP 36.8; O2SAT 99; BMI 27.1
[2018-11-09] MEDS: Mepolizumab 100 MG VIAL SQ (15:21)
== END | disposition home or self-care (01) ==
LOC: MEDOUTP 14:40
PROVIDERS: Family Provider Family Medicine; PCP Family Medicine; Referring Provider Internal Medicine Critical Care Medicine; Visit Provider Internal Medicine Critical Care Medicine
DX: J45.50 Severe persistent asthma, uncomplicated (principal)
CPT/HCPCS: 96372; J2182

== ENCOUNTER → 2018-12-07 15:39 | Outpatient (CLI) | payer OTHER, SELFPAY ==
[2018-11-09 14:58] VITALS: BMI 27.1
[2018-12-07 15:48] VITALS: BP 92/62; PULSE 58; RESP 16; TEMP 36.7; O2SAT 97; BMI 28.2
[2018-12-07] MEDS: Mepolizumab 100 MG VIAL SQ (16:04)
== END ==
PROVIDERS: Family Provider Family Medicine; PCP Family Medicine; Referring Provider Internal Medicine Critical Care Medicine; Visit Provider Internal Medicine Critical Care Medicine
DX: J45.50 Severe persistent asthma, uncomplicated (principal)
CPT/HCPCS: 96372; J2182

== ENCOUNTER → 2019-01-04 | Outpatient (CLI) | payer OTHER, SELFPAY ==
[2018-12-07 15:48] VITALS: BMI 28.2
[2019-01-04 15:41] VITALS: BP 94/67; PULSE 57; RESP 16; TEMP 36.4; O2SAT 97; BMI 24.9
[2019-01-04] MEDS: Mepolizumab 100 MG VIAL SQ (16:00)
== END | disposition home or self-care (01) ==
LOC: MEDOUTP 15:36
PROVIDERS: Family Provider Family Medicine; PCP Family Medicine; Referring Provider Internal Medicine Critical Care Medicine; Visit Provider Internal Medicine Critical Care Medicine
DX: J45.50 Severe persistent asthma, uncomplicated (principal)
CPT/HCPCS: 96372; J2182

== ENCOUNTER → 2019-02-01 15:36 | Outpatient (CLI) | payer OTHER, SELFPAY ==
[2019-01-04 15:41] VITALS: BMI 24.9
[2019-02-01 15:49] VITALS: BP 114/76; PULSE 56; RESP 18; TEMP 36.6; O2SAT 99; BMI 24.9
[2019-02-01] MEDS: Mepolizumab 100 MG VIAL SQ (16:02)
== END ==
PROVIDERS: Family Provider Family Medicine; PCP Family Medicine; Referring Provider Internal Medicine Critical Care Medicine; Visit Provider Internal Medicine Critical Care Medicine
DX: J45.50 Severe persistent asthma, uncomplicated (principal)
CPT/HCPCS: 96372; J2182

== ENCOUNTER → 2019-03-01 | Outpatient (CLI) | payer OTHER, SELFPAY ==
[2019-01-04 15:41] VITALS: BMI 24.9
[2019-02-01 15:49] VITALS: BMI 24.9
[2019-03-01 15:05] VITALS: BP 114/80; PULSE 61; RESP 18; TEMP 36.3; O2SAT 95; BMI 27.6
[2019-03-01] MEDS: Mepolizumab 100 MG VIAL SQ (15:23)
== END | disposition home or self-care (01) ==
LOC: MEDOUTP 15:00
PROVIDERS: Family Provider Family Medicine; PCP Family Medicine; Referring Provider Internal Medicine Critical Care Medicine; Visit Provider Internal Medicine Critical Care Medicine
DX: J45.50 Severe persistent asthma, uncomplicated (principal)
CPT/HCPCS: 96372; J2182

== ENCOUNTER → 2019-03-29 15:25 | Outpatient (CLI) | payer OTHER, SELFPAY ==
[2019-03-01 15:05] VITALS: BMI 27.6
[2019-03-06 15:33] VITALS: BMI 27.5
[2019-03-29 15:33] VITALS: BP 140/78; PULSE 60; RESP 16; TEMP 36.1; O2SAT 98; BMI 27.5
[2019-03-29] MEDS: Mepolizumab 100 MG VIAL SQ (15:46)
== END ==
PROVIDERS: Family Provider Family Medicine; PCP Family Medicine; Referring Provider Internal Medicine Critical Care Medicine; Visit Provider Internal Medicine Critical Care Medicine
DX: J45.50 Severe persistent asthma, uncomplicated (principal)
CPT/HCPCS: 96372; J2182

== ENCOUNTER → 2019-04-26 15:33 | Outpatient (CLI) | payer OTHER, SELFPAY ==
[2019-03-29 15:33] VITALS: BMI 27.5
[2019-04-03 14:01] VITALS: BMI 27.5
[2019-04-26 15:49] VITALS: BP 113/72; PULSE 52; RESP 16; TEMP 36.6; O2SAT 98; BMI 28.2
[2019-04-26] MEDS: Mepolizumab 100 MG VIAL SQ (15:55)
== END ==
PROVIDERS: Family Provider Family Medicine; PCP Family Medicine; Referring Provider Internal Medicine Critical Care Medicine; Visit Provider Internal Medicine Critical Care Medicine
DX: J45.50 Severe persistent asthma, uncomplicated (principal)
CPT/HCPCS: 96372; J2182

== ENCOUNTER → 2019-05-24 15:40 | Outpatient (CLI) | payer OTHER, SELFPAY ==
[2019-04-03 14:01] VITALS: BMI 27.5
[2019-04-26 15:49] VITALS: BMI 28.2
[2019-05-24 15:44] VITALS: BP 126/77; PULSE 58; RESP 18; TEMP 36.4; O2SAT 100; BMI 28.2
[2019-05-24] MEDS: Mepolizumab 100 MG VIAL SQ (16:12)
== END ==
PROVIDERS: Family Provider Family Medicine; PCP Family Medicine; Referring Provider Internal Medicine Critical Care Medicine; Visit Provider Internal Medicine Critical Care Medicine
DX: J45.50 Severe persistent asthma, uncomplicated (principal)
CPT/HCPCS: 96372; J2182

== ENCOUNTER → 2019-06-21 15:39 | Outpatient (CLI) | payer OTHER, SELFPAY ==
[2019-04-26 15:49] VITALS: BMI 28.2
[2019-05-24 15:44] VITALS: BMI 28.2
[2019-06-21 15:44] VITALS: BP 117/82; PULSE 53; RESP 18; TEMP 36.2; O2SAT 99; BMI 28.8
[2019-06-21] MEDS: Mepolizumab 100 MG VIAL SQ (16:02)
== END ==
PROVIDERS: PCP Family Medicine; Referring Provider Internal Medicine Critical Care Medicine; Visit Provider Internal Medicine Critical Care Medicine
DX: J45.50 Severe persistent asthma, uncomplicated (principal)
CPT/HCPCS: 96372

== ENCOUNTER → 2019-07-19 15:31 | Outpatient (CLI) | payer OTHER, SELFPAY ==
[2019-05-24 15:44] VITALS: BMI 28.2
[2019-06-21 15:44] VITALS: BMI 28.8
[2019-07-19 15:39] VITALS: BP 115/85; PULSE 63; RESP 16; TEMP 36.4; O2SAT 100; BMI 29.4
[2019-07-19] MEDS: Mepolizumab 100 MG VIAL SQ (15:51)
== END ==
PROVIDERS: PCP Family Medicine; Referring Provider Internal Medicine Critical Care Medicine; Visit Provider Internal Medicine Critical Care Medicine
DX: J45.50 Severe persistent asthma, uncomplicated (principal)
CPT/HCPCS: 96372; J2182

== ENCOUNTER → 2019-08-16 15:29 | Outpatient (CLI) | payer OTHER, SELFPAY ==
[2019-06-21 15:44] VITALS: BMI 28.8
[2019-07-19 15:39] VITALS: BMI 29.4
[2019-08-16 15:39] VITALS: BP 110/72; PULSE 69; RESP 16; TEMP 36.5; O2SAT 99; BMI 29.4
[2019-08-16] MEDS: Mepolizumab 100 MG VIAL SQ (15:57)
== END ==
PROVIDERS: PCP Family Medicine; Referring Provider Internal Medicine Critical Care Medicine; Visit Provider Internal Medicine Critical Care Medicine
DX: J45.50 Severe persistent asthma, uncomplicated (principal)
CPT/HCPCS: 96372; J2182

== ENCOUNTER → 2019-09-13 11:51 | Outpatient (CLI) | payer OTHER, SELFPAY ==
[2019-08-16 15:39] VITALS: BMI 29.4
[2019-09-13 12:00] VITALS: BP 107/73; PULSE 62; RESP 18; TEMP 36.9; O2SAT 98; BMI 29.5
[2019-09-13] MEDS: Mepolizumab 100 MG VIAL SQ (12:26)
== END ==
PROVIDERS: PCP Family Medicine; Referring Provider Internal Medicine Critical Care Medicine; Visit Provider Internal Medicine Critical Care Medicine
DX: J45.50 Severe persistent asthma, uncomplicated (principal)
CPT/HCPCS: 96372; J2182

== ENCOUNTER → 2019-10-11 14:44 | Outpatient (CLI) | payer OTHER, SELFPAY ==
[2019-08-16 15:39] VITALS: BMI 29.4
[2019-10-10 14:06] VITALS: BMI 31.5
[2019-10-11 14:58] VITALS: BP 95/74; PULSE 66; RESP 16; O2SAT 95; BMI 30.4
[2019-10-11] MEDS: Mepolizumab 100 MG VIAL SQ (15:09)
== END ==
PROVIDERS: PCP Family Medicine; Referring Provider Internal Medicine Critical Care Medicine; Visit Provider Internal Medicine Critical Care Medicine
DX: J45.50 Severe persistent asthma, uncomplicated (principal)
CPT/HCPCS: 96372; J2182

== ENCOUNTER → 2019-12-07 14:38 | Outpatient (CLI) | payer OTHER, SELFPAY ==
[2019-11-08 14:43] VITALS: BMI 30.4
[2019-12-07 14:50] VITALS: BP 106/70; PULSE 63; RESP 16; TEMP 37.1; O2SAT 97; BMI 30.9
[2019-12-07] MEDS: Mepolizumab 100 MG VIAL SQ (15:02)
== END ==
PROVIDERS: PCP Family Medicine; Referring Provider Internal Medicine Critical Care Medicine; Visit Provider Internal Medicine Critical Care Medicine
DX: J45.50 Severe persistent asthma, uncomplicated (principal)
CPT/HCPCS: 96372; J2182

== ENCOUNTER → 2020-01-04 15:43 | Outpatient (CLI) | payer OTHER, SELFPAY ==
[2019-11-08 14:43] VITALS: BMI 30.4
[2019-12-07 14:50] VITALS: BMI 30.9
[2020-01-04 15:48] VITALS: BP 112/73; PULSE 63; RESP 16; TEMP 36.6; O2SAT 98; BMI 30.9
[2020-01-04] MEDS: Mepolizumab 100 MG VIAL SQ (16:03)
== END ==
PROVIDERS: PCP Family Medicine; Referring Provider Internal Medicine Critical Care Medicine; Visit Provider Internal Medicine Critical Care Medicine
DX: J45.50 Severe persistent asthma, uncomplicated (principal)
CPT/HCPCS: 96372; J2182

== ENCOUNTER → 2020-02-01 15:42 | Outpatient (CLI) | payer OTHER, SELFPAY ==
[2019-12-07 14:50] VITALS: BMI 30.9
[2020-01-04 15:48] VITALS: BMI 30.9
[2020-02-01 15:56] VITALS: BP 117/72; PULSE 59; RESP 16; TEMP 36.1; O2SAT 99; BMI 30.9
[2020-02-01] MEDS: Mepolizumab 100 MG VIAL SQ (16:08)
[2020-02-01 16:15] VITALS: BP 92/73; PULSE 65; RESP 16; TEMP 35.9
== END ==
PROVIDERS: PCP Family Medicine; Referring Provider Internal Medicine Critical Care Medicine; Visit Provider Internal Medicine Critical Care Medicine
DX: J45.50 Severe persistent asthma, uncomplicated (principal)
CPT/HCPCS: 96372; J2182

== ENCOUNTER → 2020-02-29 15:45 | Outpatient (CLI) | payer OTHER, SELFPAY ==
[2020-01-04 15:48] VITALS: BMI 30.9
[2020-02-01 15:56] VITALS: BMI 30.9
[2020-02-29 15:52] VITALS: BP 114/76; PULSE 76; RESP 16; TEMP 36.3; O2SAT 100
[2020-02-29] MEDS: Mepolizumab 100 MG VIAL SQ (16:11)
== END ==
PROVIDERS: PCP Family Medicine; Referring Provider Internal Medicine Critical Care Medicine; Visit Provider Internal Medicine Critical Care Medicine
DX: J45.50 Severe persistent asthma, uncomplicated (principal)
CPT/HCPCS: 96372; J2182

== ENCOUNTER → 2020-03-02 07:05 | Outpatient (CLI) | payer OTHER, SELFPAY ==
[2020-02-01 15:56] VITALS: BMI 30.9
[2020-03-02 08:34] LABS: Cholesterol 105 mg/dL (200); High Density Lipoprotein 32 mg/dL; T4 Free Direct 1.45 ng/dL (0.76-1.46); Thyroid Stim Hormone (TSH) 0.13 uIU/mL (0.358-3.74); Triglycerides 196 mg/dL; Very Low Density Lipoprotein 39 mg/dL (5-40)
== END ==
PROVIDERS: PCP Family Medicine; Referring Provider Family Medicine; Visit Provider Family Medicine
DX: E78.5 Hyperlipidemia, unspecified (principal); E03.9 Hypothyroidism, unspecified; J45.50 Severe persistent asthma, uncomplicated; Z78.9 Other specified health status
CPT/HCPCS: 36415; 80061; 84439; 84443

== ENCOUNTER → 2020-03-25 12:41 | Outpatient (CLI) | payer OTHER, SELFPAY ==
[2019-10-10 14:06] VITALS: BMI 31.5
[2020-02-01 15:56] VITALS: BMI 30.9
--- NOTE | 2020-03-26 05:52 | PFTCOMP ---
COMPLETE PULMONARY FUNCTION TEST INTERPRETATION Brief HPI: Patient is a 60 year old male, currently under the care of myself, who presents to [facility] for complete pulmonary function tests secondary to diagnosis of dyspnea. Respiratory therapist reports good effort and reproducible results. Interpretation: Forced expiration spirometry shows a mild large airways obstructive ventilatory defect with an FEV1 of 84% predicted. There is no significant bronchodilator response by strict ATS criteria. Spirograms are of good quality and plateau slowly, indicating slowly emptying areas of the lungs. The respiratory flow volume loop shows decreased expiratory flow rates at all lung volumes consistent with airway obstruction. Lung volumes by body plethysmography show a normal total lung capacity at 6.09 L, 85% predicted. All other lung volumes are within normal limits. Diffusion capacity by carbon monoxide is elevated at 122% predicted. The airway resistance is elevated. Compared to previous pulmonary function tests from 09/22/2018, there has been no significant change. Impression: Irreversible mild large airways obstructive ventilatory defect with preserved diffusion capacity.
== END ==
PROVIDERS: PCP Family Medicine; Referring Provider Nurse Practitioner Acute Care; Visit Provider Nurse Practitioner Acute Care
DX: R06.02 Shortness of breath (principal); J45.50 Severe persistent asthma, uncomplicated
CPT/HCPCS: 94060; 94726; 94729

== ENCOUNTER → 2020-03-26 11:01 | Outpatient (CLI) | payer OTHER, SELFPAY ==
[2019-10-10 14:06] VITALS: BMI 31.5
[2020-02-01 15:56] VITALS: BMI 30.9
[2020-03-26 11:15] VITALS: PULSE 63; PULSE 71; PULSE 72; PULSE 76; PULSE 91; PULSE 93; PULSE 98; O2SAT 91; O2SAT 93; O2SAT 96; O2SAT 97; O2SAT 98
--- NOTE | 2020-03-26 16:20 | PCM.PSN.6M ---
PSN 6 Minute Walk Test - 6 Minute Walk Test 6 Minute Walk Test: 6 Minute Walk Test PSN:6-Minute Walk Test Start: 03/26/20 11:19 Freq: Status: Active Protocol: RESP.6MINW Document 03/26/20 11:15 HJ (Rec: 03/26/20 11:23 [id number]) 6 Minute Walk Test Date Performed 03/26/20 Time Performed 11:15 Height 6 ft Weight: 103.419 kg Weight in Pounds 228.[address]: Janelle Toro CUSTOM GARMENT DESIGNER FIO2 (% Oxygen) 21 Assistive device used: None Pre-test Oxygen Delivery Method Room Air Pulse Ox (%) 98 Pulse Rate (60-100 beats/min) 63 Dyspnea Pritesh Scale (0-10) 0 Exertion Pritesh Scale (6-20) 6 1st minute Oxygen Delivery Method Room Air Pulse Ox (%) 97 Pulse Rate (60-100 beats/min) 91 2nd minute Oxygen Delivery Method Room Air Pulse Ox (%) 91 Pulse Rate (60-100 beats/min) 93 3rd minute Oxygen Delivery Method Room Air Pulse Ox (%) 93 Pulse Rate (60-100 beats/min) 98 4th minute Oxygen Delivery Method Room Air Pulse Ox (%) 98 Pulse Rate (60-100 beats/min) 72 5th minute Oxygen Delivery Method Room Air Pulse Ox (%) 96 Pulse Rate (60-100 beats/min) 76 6th minute Oxygen Delivery Method Room Air Pulse Ox (%) 96 Pulse Rate (60-100 beats/min) 91 Post-test Oxygen Delivery Method Room Air Pulse Ox (%) 98 Pulse Rate (60-100 beats/min) 71 Dyspnea Pritesh Scale (0-10) 1 Exertion Pritesh Scale (6-20) 11 Full Laps Walked 21 Partial Lap, Number of Tiles Walked 0 Total Distance Walked (ft) 1239 - Interpretation Interpretation: The patient was able to ambulate 1239 feet over the course of 6 minutes on room air with no assistive devices or breaks. The patient did desaturate as low as 91%, but no significant tachycardia was noted. These findings are consistent with a respiratory limitation to exercise tolerance. - Recommendations Recommendations: No supplemental oxygen is indicated at this time. However, patient will need to be followed given level of desaturation.
== END ==
PROVIDERS: PCP Family Medicine; Referring Provider Nurse Practitioner Acute Care; Visit Provider Nurse Practitioner Acute Care
DX: R06.02 Shortness of breath (principal); J45.50 Severe persistent asthma, uncomplicated
CPT/HCPCS: 94618

== ENCOUNTER → 2020-03-28 15:16 | Outpatient (CLI) | payer OTHER, SELFPAY ==
[2020-02-01 15:56] VITALS: BMI 30.9
[2020-03-28 15:28] VITALS: BP 110/69; PULSE 61; RESP 18; TEMP 36.4; O2SAT 99; BMI 30.9
[2020-03-28] MEDS: Mepolizumab 100 MG VIAL SQ (15:54)
== END ==
PROVIDERS: PCP Family Medicine; Referring Provider Internal Medicine Critical Care Medicine; Visit Provider Internal Medicine Critical Care Medicine
DX: J45.50 Severe persistent asthma, uncomplicated (principal)
CPT/HCPCS: 96372; J2182

== ENCOUNTER → 2020-04-10 14:56 | Outpatient (CLI) | payer OTHER, SELFPAY ==
[2020-04-02 14:06] VITALS: BMI 31.8
[2020-04-10 18:17] LABS: Thyroid Stim Hormone (TSH) 0.46 uIU/mL (0.358-3.74)
== END ==
PROVIDERS: PCP Family Medicine; Visit Provider Family Medicine
DX: E03.9 Hypothyroidism, unspecified (principal); J45.50 Severe persistent asthma, uncomplicated
CPT/HCPCS: 36415; 84443

== ENCOUNTER → 2020-04-25 15:17 | Outpatient (CLI) | payer OTHER, SELFPAY ==
[2020-02-01 15:56] VITALS: BMI 30.9
[2020-04-02 14:06] VITALS: BMI 31.8
[2020-04-25 15:33] VITALS: BP 120/78; PULSE 52; RESP 16; TEMP 36.4; O2SAT 100; BMI 30.9
[2020-04-25] MEDS: Mepolizumab 100 MG VIAL SQ (15:48)
== END ==
PROVIDERS: PCP Family Medicine; Referring Provider Internal Medicine Critical Care Medicine; Visit Provider Internal Medicine Critical Care Medicine
DX: J45.50 Severe persistent asthma, uncomplicated (principal)
CPT/HCPCS: 96372; J2182

== ENCOUNTER → 2020-05-23 14:52 | Outpatient (CLI) | payer OTHER, SELFPAY ==
[2020-04-02 14:06] VITALS: BMI 31.8
[2020-04-25 15:33] VITALS: BMI 30.9
[2020-05-23 15:05] VITALS: BP 135/83; PULSE 51; RESP 16; TEMP 36; O2SAT 98
[2020-05-23] MEDS: Mepolizumab 100 MG VIAL SQ (15:24)
== END ==
PROVIDERS: PCP Family Medicine; Referring Provider Internal Medicine Critical Care Medicine; Visit Provider Internal Medicine Critical Care Medicine
DX: J45.50 Severe persistent asthma, uncomplicated (principal)
CPT/HCPCS: 96372; J2182

== ENCOUNTER → 2020-06-20 15:40 | Outpatient (CLI) | payer OTHER, SELFPAY ==
[2020-04-25 15:33] VITALS: BMI 30.9
[2020-06-20 15:49] VITALS: BP 128/85; PULSE 57; RESP 16; TEMP 35.8; O2SAT 98; BMI 31.1
[2020-06-20] MEDS: Mepolizumab 100 MG VIAL SQ (16:11)
== END ==
PROVIDERS: PCP Family Medicine; Referring Provider Internal Medicine Critical Care Medicine; Visit Provider Internal Medicine Critical Care Medicine
DX: J45.50 Severe persistent asthma, uncomplicated (principal)
CPT/HCPCS: 96372; J2182

== ENCOUNTER → 2020-07-18 15:15 | Outpatient (CLI) | payer OTHER, SELFPAY ==
[2020-04-25 15:33] VITALS: BMI 30.9
[2020-06-20 15:49] VITALS: BMI 31.1
[2020-07-18 15:26] VITALS: BP 118/77; PULSE 56; RESP 16; TEMP 36.2; O2SAT 98; BMI 31.1
[2020-07-18] MEDS: Mepolizumab 100 MG VIAL SQ (15:58)
== END ==
PROVIDERS: PCP Family Medicine; Referring Provider Internal Medicine Critical Care Medicine; Visit Provider Internal Medicine Critical Care Medicine
DX: J45.50 Severe persistent asthma, uncomplicated (principal)
CPT/HCPCS: 96372; J2182

== ENCOUNTER → 2020-08-15 15:30 | Outpatient (CLI) | payer OTHER, SELFPAY ==
[2020-06-20 15:49] VITALS: BMI 31.1
[2020-07-18 15:26] VITALS: BMI 31.1
[2020-08-15 15:39] VITALS: BP 127/76; PULSE 55; RESP 16; TEMP 35.7; O2SAT 98; BMI 30.9
[2020-08-15] MEDS: Mepolizumab 100 MG VIAL SQ (15:56)
== END ==
PROVIDERS: PCP Family Medicine; Referring Provider Internal Medicine Critical Care Medicine; Visit Provider Internal Medicine Critical Care Medicine
DX: J45.50 Severe persistent asthma, uncomplicated (principal)
CPT/HCPCS: 96372; J2182

== ENCOUNTER → 2020-09-12 15:39 | Outpatient (CLI) | payer OTHER, SELFPAY ==
[2020-07-18 15:26] VITALS: BMI 31.1
[2020-08-15 15:39] VITALS: BMI 30.9
[2020-09-12 15:44] VITALS: BP 125/80; PULSE 62; RESP 16; TEMP 36.2; O2SAT 99; BMI 30.7
[2020-09-12] MEDS: Mepolizumab 100 MG VIAL SQ (16:03)
== END ==
PROVIDERS: PCP Family Medicine; Referring Provider Internal Medicine Critical Care Medicine; Visit Provider Internal Medicine Critical Care Medicine
DX: J45.50 Severe persistent asthma, uncomplicated (principal)
CPT/HCPCS: 96372; J2182

== ENCOUNTER → 2020-10-10 15:23 | Outpatient (CLI) | payer OTHER, SELFPAY ==
[2020-08-15 15:39] VITALS: BMI 30.9
[2020-09-18 07:58] VITALS: BMI 30.5
[2020-10-10 15:29] VITALS: BP 113/71; PULSE 61; RESP 16; TEMP 36.9; O2SAT 98; BMI 30.9
[2020-10-10] MEDS: Mepolizumab 100 MG VIAL SQ (15:54)
== END ==
PROVIDERS: PCP Family Medicine; Referring Provider Internal Medicine Critical Care Medicine; Visit Provider Internal Medicine Critical Care Medicine
DX: J45.50 Severe persistent asthma, uncomplicated (principal)
CPT/HCPCS: 96372

== ENCOUNTER → 2020-11-14 15:20 | Outpatient (CLI) | payer OTHER, SELFPAY ==
[2020-09-18 07:58] VITALS: BMI 30.5
[2020-10-10 15:29] VITALS: BMI 30.9
[2020-11-14 15:29] VITALS: BP 100/70; PULSE 61; RESP 14; TEMP 36.2; O2SAT 95; BMI 31.1
[2020-11-14] MEDS: Mepolizumab 100 MG VIAL SQ (16:00)
== END ==
PROVIDERS: PCP Family Medicine; Referring Provider Internal Medicine Critical Care Medicine; Visit Provider Internal Medicine Critical Care Medicine
DX: J45.50 Severe persistent asthma, uncomplicated (principal)
CPT/HCPCS: 96372; J2182

== ENCOUNTER → 2020-11-20 16:04 | Outpatient (CLI) | payer OTHER, SELFPAY ==
[2020-11-14 15:29] VITALS: BMI 31.1
--- NOTE | 2020-11-20 16:06 | RAD_ITS ---
INDICATION: SPINAL STENOSIS EXAMINATION/TECHNIQUE: X-RAY - XR Spine Lumbar Min 4 Views COMPARISON: None. FINDINGS: Studies of the lumbar spine in 3 projections shows some mild narrowing of the L5-S1 intervertebral disc space. No spondylolytic defects are seen. Cholelithiasis is incidentally identified. RAD/L/S Spine Min 4 Views IMPRESSION: 1.There is some mild narrowing of the L5-S1 intervertebral disc space.. 2. Cholelithiasis is incidentally identified. Electronically Signed: Alonso George DO at 10:30 EDT Tel , Service support ,
== END ==
PROVIDERS: PCP Family Medicine; Referring Provider Family Medicine; Visit Provider Family Medicine
DX: M48.00 Spinal stenosis, site unspecified (principal)
CPT/HCPCS: 72110

== ENCOUNTER → 2020-12-12 15:16 | Outpatient (CLI) | payer OTHER, SELFPAY ==
[2020-10-10 15:29] VITALS: BMI 30.9
[2020-12-12 15:21] VITALS: BP 118/73; PULSE 53; RESP 16; TEMP 36.9; O2SAT 98
[2020-12-12] MEDS: Mepolizumab 100 MG VIAL SQ (15:30)
== END ==
PROVIDERS: PCP Family Medicine; Referring Provider Internal Medicine Critical Care Medicine; Visit Provider Internal Medicine Critical Care Medicine
DX: J45.50 Severe persistent asthma, uncomplicated (principal)
CPT/HCPCS: 96372; J2182

== ENCOUNTER → 2021-01-09 15:31 | Outpatient (CLI) | payer OTHER, SELFPAY ==
[2021-01-09 15:47] VITALS: BP 113/79; PULSE 57; RESP 16; TEMP 37.1; O2SAT 96
[2021-01-09] MEDS: Mepolizumab 100 MG VIAL SQ (15:55)
== END ==
PROVIDERS: PCP Family Medicine; Referring Provider Internal Medicine Critical Care Medicine; Visit Provider Internal Medicine Critical Care Medicine
DX: J45.50 Severe persistent asthma, uncomplicated (principal)
CPT/HCPCS: 96372; J2182

== ENCOUNTER → 2021-02-03 06:36 | Outpatient (CLI) | payer OTHER, SELFPAY ==
--- NOTE | 2021-02-03 09:13 | NEURO ---
NCS and/or EMG Patient Report Ordering Doctor: Murali Hassan DATE OF SERVICE: 02/03/21 Indication: Progressive muscle atrophy and weakness. Diffuse fasciculations. Evaluate for motor neuron disease. Of note, the patient has a history of bilateral lower extremity numbness and imbalance that he relates to a frostbite injury. Findings: Nerve conduction studies were performed in the left upper and lower extremity. The left median motor study recording the abductor pollicis brevis showed a reduced amplitude, prolonged distal latency and slowed conduction velocity. No conduction block or temporal dispersion was present between the wrist and antecubital fossa. The left ulnar motor study recording the abductor digiti minimi showed a borderline amplitude, normal distal latency and normal forearm conduction velocity. No conduction block or temporal dispersion was present between the wrist and below-elbow sites. No conduction block or focal slowing was present across the elbow. The left median sensory response recording digit two showed a normal amplitude, normal latency and borderline conduction velocity. The left ulnar sensory response recording digit five showed a normal amplitude, latency and conduction velocity. The left radial sensory response recording over the extensor snuff box showed a normal amplitude, normal latency and borderline conduction velocity. The left peroneal motor study recording the extensor digitorum brevis showed a normal amplitude, normal distal latency and normal conduction velocity in the leg. No conduction block or temporal dispersion was present between the ankle and below fibular neck sites. No conduction block or focal slowing was present across the fibular neck. The left tibial motor study recording the abductor hallucis brevis showed a normal amplitude, normal distal latency and normal conduction velocity. No conduction block or temporal dispersion was present between the ankle and popliteal fossa. Left sural sensory response showed a normal amplitude and conduction velocity. Left superficial peroneal sensory response showed a normal amplitude and conduction velocity. Needle EMG of the left upper extremity and paraspinal muscles was performed. Active denervation was present in the abductor pollicis brevis muscle. Fasciculations were present in the deltoid, triceps, biceps, abductor pollicis brevis and paraspinal muscles. Motor units were diffusely large amplitude, long duration and with reduced recruitment. Several muscles demonstrated a mild degree of polyphasia. Needle EMG of the left lower extremity and paraspinal muscles was performed. Active denervation was present in the rectus femoris muscle. Fasciculations were present in the medial gastrocnemius, vastus medialis, rectus femoris and paraspinal muscles. Motor units were diffusely large amplitude, long duration and with reduced recruitment. Several muscles demonstrated a mild degree of polyphasia. Needle EMG of the left thoracic paraspinal muscles was performed. No denervation was present in any muscle. Fasciculations were present. Impression: This is an abnormal study. 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 Lower motor unit abnormalities were present in three segments of the neuraxis (cervical, thoracic, lumbosacral). These findings, in conjunction with diffuse fasciculation potentials, could represent a diffuse disorder of the anterior horn cell and/or their axons. There is a relative paucity of active denervation compared to the chronic findings. Clinical correlation for signs/symptoms of motor neuron disease is recommended. Layo Forbes D.O. Multi Select Codes Neurology Neurology Interp Codes: 91548-52 Musc test done w/n test comp (interp) (Qty:2), 23445-16 EMG, Non Extremity w/ NCS (59) and 88382-03 Nrv cndj test 11-12 studies (interp)
== END ==
PROVIDERS: PCP Family Medicine; Referring Provider Psychiatry & Neurology Neurology; Visit Provider Psychiatry & Neurology Neurology
DX: R53.1 Weakness (principal); G12.21 Amyotrophic lateral sclerosis
CPT/HCPCS: 95869; 95886; 95912

== ENCOUNTER → 2021-02-05 08:36 | Outpatient (CLI) | payer OTHER, SELFPAY ==
--- NOTE | 2021-02-05 08:36 | CT_ITS ---
STUDY: CT CERVICAL SPINE WITH AND WITHOUT CONTRAST REASON FOR EXAM: Male, 60 years old. Neck pain and left shoulder weakness and upper extremity weakness following injury. RADIATION DOSAGE (If Supplied By Facility): CTDIvol = ( 25 ) mGy, DLP = ( 1114.59 ) mGycm TECHNIQUE: High resolution transaxial imaging was performed following intravenous administration of IV 50mL Isovue-370. Sagittal and coronal images were reconstructed. Individualized dose optimization techniques were used for this CT. COMPARISON: None FINDINGS: Normal craniovertebral junction. There are degenerative changes of the anterior atlantoaxial articulation. Normal odontoid process. Normal cervical lordosis. Normal vertebral bodies and posterior osseous elements. C2-3: Normal endplates. Normal disc height and morphology. Normal central canal and intervertebral neuroforamina. C3-4: Normal endplates. Normal disc height and morphology. Normal central canal and intervertebral neuroforamina. C4-5: Mild degree of disc space narrowing. Anterior spondylosis. C5-6: Normal endplates. Normal disc height and morphology. Normal central canal and intervertebral neuroforamina. C6-7: Normal endplates. Normal disc height and morphology. Normal central canal and intervertebral neuroforamina. C7-T1: Normal endplates. Normal disc height and morphology. Normal central canal and intervertebral neuroforamina. Partial ossification of the posterior nuchal ligament. CT/Spine Cervical W/WO Contrast IMPRESSION: Disc space narrowing and anterior spondylosis at the C3-4 C5 level. Electronically Signed: Jeovanny Cesar MD at 15:22 EDT , Service support ,
--- NOTE | 2021-02-05 08:36 | CT_ITS ---
STUDY: CT BRAIN WITH AND WITHOUT CONTRAST REASON FOR EXAM: Male, 60 years old. Dizziness,weakness,gait disorder RADIATION DOSAGE (If Supplied By Facility): CTDIvol = ( 44.99 ) mGy, DLP = ( 1558.48 ) mGycm TECHNIQUE: Transaxial CT imaging of the brain was performed pre and post contrast administration. The examination was performed with intravenous administration of 50 ML ISOVUE 370. Individualized dose optimization techniques were used for this CT. COMPARISON: None. FINDINGS: Normal soft tissue structures. Normal calvarium. There is mild cerebral atrophy with widening of the extra-axial spaces and ventricular dilatation. There are areas of decreased attenuation within the white matter tracts of the supratentorial brain, consistent with microvascular disease changes. Normal basal ganglia and thalami. Normal brainstem. Normal cerebellum. There is no intracranial hemorrhage. There are no findings of an acute ischemic infarction. Normal visualized paranasal sinuses. CT/Brain/Head W/WO Contrast IMPRESSION: Chronic involutional changes of the brain. MRI may be useful. Electronically Signed: James Lebron MD at 10:43 EDT Tel , Service support ,
[2021-02-05 09:15] LABS: CREATININE FINGERSTICK 1.1 mg/dL (0.70-1.30); EGFR FINGERSTICK > 60.0000 mL/min (>60)
[2021-02-05 09:24] LABS: Erythrocyte Sedimentation Rate 2 mm/hr (0-20)
[2021-02-05 09:26] LABS: Absolute Lymphocyte Count 1.11 X10^3/uL (0.83-4.51); Absolute Neutrophil Count 5.2 X10^3/uL (2.0-7.7); Basophil# 0.04 X10^3/uL; Basophil% 0.6 % (0-1); Eosinophil# 0.04 X10^3/uL; Eosinophils% 0.6 % (0-5); Hematocrit 45.4 % (40-54); Lymphocyte # 1.11 X10^3/ul (0.83-4.51); Lymphocyte % 15.9 % (19-41); Mean Corpuscular Volume 93.8 fL (80-94); Mean Platelet Vol. 10.9 fl (6.2-12.0); Monocyte# 0.57 X10^3/uL; Monocyte% 8.2 % (0-10); NRBC Flagged by Analyzer 0 % (0-5); Neutrophil # 5.18 X10^3/uL (2.7-7.7); Neutrophil % 74.1 % (47-70); Platelet Count 211 K/mm3 (150-450); RBC Distribution Width CV 13.2 % (11.6-14.6); RBC Distribution Width SD 45.1 fl (35.1-43.9); Red Blood Count 4.84 M/mm3 (4.6-6.2)
[2021-02-05 10:01] LABS: ALB/GLOB Ratio 1.1 RATIO (0.9-2.4); AST(SGOT) 21 U/L (15-37); Alanine Aminotransfer ALT/SGPT 40 U/L (16-61); Albumin, Serum 3.8 g/dL (3.2-5.0); Alkaline Phosphatase 79 U/L (45-117); Anion Gap 5 (5-15); BUN 17 mg/dL (7-18); CPK Total, Creatine Kinase 122 U/L (39-308); Calcium,Total 8.9 mg/dL (8.5-10.1); Chloride 105 mmol/L (98-107); EST Glomerular Filtration Rate 81 mL/min (>60); Est Glom Filt Rate - Afr Amer 98 mL/min (>60); Globulin 3.6 g/dL (2.2-4.2); Glucose 118 mg/dL (74-106); Magnesium 2.1 mg/dL (1.6-2.6); Protein, Total 7.4 g/dL (6.4-8.2); Sodium Level 139 mmol/L (136-145); Thyroid Stim Hormone (TSH) 0.08 uIU/mL (0.358-3.74)
[2021-02-05 12:41] LABS: Vitamin B12 215 pg/mL (211-911)
[2021-02-05 16:14] LABS: T4 Free Direct 1.76 ng/dL (0.76-1.46)
[2021-02-06 15:21] LABS: ANTINUCLEAR ANTIBODIES DIRECT Negative (Negative)
[2021-02-11 13:08] LABS: Aldolase 5.1 U/L (3.3-10.3); Free Kappa Light Chains 16.3 mg/L (3.3-19.4); Free Lambda Light Chains 12.9 mg/L (5.7-26.3); Myoglobin, Serum 47 ng/mL (28-72); Vitamin B1, Thiamine 172.3 nmol/L (66.5-200.0)
[2021-02-11 14:58] LABS: Copper, Serum or Plasma 109 ug/dL (69-132); Lead, Blood Adult 16+yrs < 1 ug/dL (0-4); Mercury, Blood 85324 < 1.0 ug/L (0.0-14.9)
== END ==
PROVIDERS: PCP Family Medicine; Referring Provider Psychiatry & Neurology Neurology; Visit Provider Psychiatry & Neurology Neurology
DX: E03.9 Hypothyroidism, unspecified (principal); R42 Dizziness and giddiness; R53.1 Weakness; R26.9 Unspecified abnormalities of gait and mobility; G12.21 Amyotrophic lateral sclerosis; M54.2 Cervicalgia; G95.9 Disease of spinal cord, unspecified; R25.3 Fasciculation
CPT/HCPCS: 36415; 70470; 72127; 80053; 82085; 82525; 82550; 82607; 82746; 83655; 83735; 83825; 83874; 83883; 84425; 84439; 84443; 85025; 85652; 86038; 86225; 86235; Q9967

== ENCOUNTER → 2021-02-06 15:29 | Outpatient (CLI) | payer OTHER, SELFPAY ==
[2021-02-06 15:42] VITALS: BP 107/72; PULSE 59; RESP 16; TEMP 36.6; O2SAT 97
[2021-02-06] MEDS: Mepolizumab 100 MG VIAL SQ (15:56)
== END ==
PROVIDERS: PCP Family Medicine; Referring Provider Internal Medicine Critical Care Medicine; Visit Provider Internal Medicine Critical Care Medicine
DX: J45.50 Severe persistent asthma, uncomplicated (principal)
CPT/HCPCS: 96372; J2182

== ENCOUNTER → 2021-03-07 15:27 | Outpatient (CLI) | payer OTHER, SELFPAY ==
[2021-03-07 15:29] VITALS: BP 128/76; PULSE 50; RESP 16; TEMP 35.7; O2SAT 97
[2021-03-07] MEDS: Mepolizumab 100 MG VIAL SQ (15:38)
== END ==
PROVIDERS: PCP Family Medicine; Referring Provider Internal Medicine Critical Care Medicine; Visit Provider Internal Medicine Critical Care Medicine
DX: J45.50 Severe persistent asthma, uncomplicated (principal)
CPT/HCPCS: 96372; J2182

== ENCOUNTER 2021-04-02 16:30 | Outpatient (RCR) | payer OTHER, SELFPAY ==
--- NOTE | 2021-02-17 17:43 | HP.PTEVAL ---
Patient's Visit Information PAULA SHAVER is a 61 year old M referred to Physical Therapy by Dr. Murali Hassan MD with a diagnosis of AMYOTROPHIC LATERAL SCLEROSIS,WEAKNESS, ABNORMALTIES GAIT AND MOBLITY. 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 WAITING FOR TEST RESULTS TO CONFIRN DIAGNOSIS. PT INTERVETIONS PROGRESSIVE BALANCE TRAINING,ENDURANCE PROGRAM ,STRENGTHENING LE AND FUNCTIONAL STRENGTHENING - Subjective This 61 y/o male presents to physical therapy with weakness and possible ALS. Patient has noticed symptoms last MAR 2020 tingling in my feet ,balance deficits with tripping . Seen DR tried gabapentin. Patient symptoms persisted in legs. Seen neurologist possible ALS thus had CATSCAN,-head ,spine and nerve conduction. Patient has had balance issues along with fasciculation 2018. Since progressive weakness left arm > right lifting self out pf tub. Patient has difficulty squatting, kneeling and stairs. Denies pain. Patient symptoms affects sleeping with cramps at night. Patient symptoms affects QOL, function ,housework and job demands. Patient RTD in 6 weeks. No h/o falls. SOCIAL: . VOCATION: retired - Objective POSTURE: mild forward posture. GAIT: reciprocal pattern. NEURO: c/o tingling in lower legs, reflexes L3-4,L4-5,L5-S1 2/3. MMT: quads/hams 4/5 ,hip flexion 4-/5,abduction 4-/5,ankle 4/5. FLEXABILITY: hams min tight. BALANCE: GOOD-. STAIRS: one step at time with rails - Balance/Special Test Scores Functional Gait Assessment Score: 22 % Disability: 26.6700 CATSIB Score (Max score 120 seconds): 95 Lower Extremity Functional Score: 43 - Goals Goal 1:: I with HEP Goal Time Frame: 4-6 Weeks Goal 2:: Patient will improve LFES SCORE by 10 points to improve gait Goal Time Frame: 4-6 Weeks Goal 3:: Patient to increase CATSIB score by 5 points to improve balance Goal Time Frame: 4-6 Weeks Goal 4:: Patient to increase hip strength 4/5 to improve gait Goal Time Frame: 4-6 Weeks Goal 5:: Patient to improve functional gait assessment score by 5 points to iprove gait - Rehabilitation Potential Physical Therapy Diagnosis: This patient has multiple comorbities to influence patient condition along with possible with weakness left > right leg ,balance deficits with further test results will confirm diagnosis thus will benefit from skilled PT Rehabilitation Potential: Good - Anticipated Interventions Patient/Client Instruction: Educate patient on: Condition, Plan of Care For the Purpose of:: To decrease pain, To increase ROM, To improve muscle performance and motor function, To improve ability to perform ADL's, To increase tolerance to activity/condition/position, To improve ability of physical actions for home/community/work/leisure, To increase flexibility/ROM, To improve endurance, To improve balance, To improve safety with gait, To assume or resume ADL's Therapeutic Exercise to Include: Strength training, Power training, Endurance training, Balance training, Coordination, Gait and locomotor training Comment: BLE QUADS/HAMS/HIP For the Purpose of:: To improve muscle performance and motor function, To improve ability to perform ADL's, To increase tolerance to activity/condition/position, To improve performance and independence with ADL's, To improve ability of physical actions for home/community/work/leisure, To increase flexibility/ROM, To improve endurance, To improve balance, To assume or resume ADL's, To improve ability to perform tasks related to life management Thank you for the opportunity to evaluate your patient. For Medicare and Medicare HMO plans, please review the plan of care and approve it. It will need to be FAXED BACK to us at [phone] for Medicare purposes. For Medicare only, by signing this I certify the plan of care. Please let me know if there are questions or concerns regarding this plan of care. Physician Signature: Date:
--- NOTE | 2021-02-26 17:09 | HP.OTEVAL_ITS ---
Patient's Visit Information PAULA SHAVER is a 61 year old M, referred to Occupational Therapy by Dr. Murali Hassan MD, with a diagnosis of ALS, weakness abnormal gait. Date of Evaluation: 02/26/21 Occupational Therapist: Dasia Miranda, MYESHAR/Sheila, CHT - Subjective This 61 y/o male presents with weakness and possible ALS. Patient has noticed symptoms last MAR 2020 tingling in my feet ,balance deficits with tripping . Seen DR tried gabapentin. Patient symptoms persisted in legs. Seen neurologist possible ALS thus had CATSCAN,-head ,spine and nerve conduction. Patient has had balance issues along with fasciculation 2018. Since progressive weakness left arm > right lifting self out pf tub. Patient has difficulty squatting, kneeling and stairs. Denies pain. Patient symptoms affects sleeping with cramps at night. Patient symptoms affects QOL, function ,housework and job demands.. No h/o falls. SOCIAL: . 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 Pt will demo an increase in lateral and tripod pinch by 2# to increase pts independent with opening baggies, containers at PLOF by D/C. Pt will demo an increase in MMT of bilateral UE to 4+/5 or greater to increase pts ind. with ADls and IADLs by d/c Goal:: Pt will demo an increase shoulder flex 30* or greater to increase pts ind. With ADls and IADLS by d/c Goal:: Pt will demo understanding of adaptive Equipment use to decrease stress on joints to allow pt to perform BADSL and IADLS at GEOVANNY level. pt will demo understanding of home modification to increase pts safe mobility in home etc. - Rehabilitation General Assessment: pt demo with a decreases in left UE strength increasing need of assist with ADls and IADls. pt would benefit from skilled OT services 2-3x week for 8 weeks to assist pt with strengthening, home modification and ad. eq. as needed. pt demo understanding and agree to POC. Rehabilitation Potential: Good - Anticipated Interventions Strengthening, Joint Protection/Energy Conservation, Ergonomic Education, ADL Training, Education re assistive Equipment, Education re Diagnosis, Caregiver Training, Home Program - Visit Plan Frequency: 2-3x /Week Duration: 2 Months General Plan: initiate BTE for plastic surgery technician/pinch and forearm- will add to his current shoulder program and add in biceps/triceps TEXT: Thank you for the opportunity to evaluate your patient. For Medicare and Medicare HMO plans, please review the plan of care and approve it. It will need to be FAXED BACK to us at [phone] for Medicare purposes. Please let me know if there are questions or concerns regarding this plan of care. Physician Signature: Date:
--- NOTE | 2021-04-02 16:32 | OTREVAL_ITS ---
Dr. Murali Hassan MD, It has been my pleasure to treat PAULA SHAVER over the last 9 visits for ALS, weakness abnormal gait. Please see the progress note below for an update on the occupational therapy plan of care! Subjective: pt arrives to OT - states he feels he has more strength in left UE- can grab and hold small objects more at this time. 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 left lateral pinch 4# increase from unable. left tripod pinch 8# increase from 2#. 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 Pt will demo an increase in lateral and tripod pinch by 2# to increase pts independent with opening baggies, containers at PLOF by D/C. Pt will demo an increase in MMT of bilateral UE to 4+/5 or greater to increase pts ind. with ADls and IADLs by d/c Goal:: Pt will demo an increase shoulder flex 30* or greater to increase pts ind. With ADls and IADLS by d/c Goal:: Pt will demo understanding of adaptive Equipment use to decrease stress on joints to allow pt to perform BADSL and IADLS at GEOVANNY level. pt will demo understanding of home modification to increase pts safe mobility in home etc. Anticipated Interventions Anticipated Interventions: Strengthening, Joint Protection/Energy Conservation, Ergonomic Education, ADL Training, Education re assistive Equipment, Education re Diagnosis, Caregiver Training, Home Program Please do not hesitate to contact me at [phone] by phone or if you have questions or concerns regarding this new plan of care! Sincerely, Dasia Miranda, OTR/L, CHT
--- NOTE | 2021-04-02 16:51 | HP.PTDCSUM ---
It has been my pleasure to treat PAULA SHAVER referred by Dr. Murali Hassan MD, with the diagnosis of AMYOTROPHIC LATERAL SCLEROSIS, WEAKNESS, ABNORMALTIES GAIT AND MOBLITY for a total of 13 visit(s). Discharge Date: 04/02/21 Please see the following information for a summary of their discharge status. Subjective: Ready for d/c Bilateral Knee Pain Intensity (Out of 10): 0 % Improvement: 60 Objective/Function: POSTURE: mild forward posture. GAIT: reciprocal pattern. PALAPTION: unremarkable. STAIRS: ALTERANTING. MMT: QUADS/HAMS /HIP 4/5,ANKLE 4/5 Goal 1:: I with HEP Goal Progress: Goal Met Goal 2:: Patient will improve LFES SCORE by 10 points to improve gait Goal Progress: Goal Met Goal 3:: Patient to increase CATSIB score by 5 points to improve balance Goal Progress: Goal Met Goal 4:: Patient to increase hip strength 4/5 to improve gait Goal Progress: Goal Met Goal 5:: Patient to improve functional gait assessment score by 5 points to iprove gait Goal Progress: Goal Met Plan: D/C Discharge Comments: D/C If there are questions or concerns regarding this patient's physical therapy, please feel free to call me at [phone]. Thank you for the referral of this patient. Sincerely, Nasir Puente PT, Cert MDT, OCS Balance/Gait/Functional tests - Balance/Special Test Scores Functional Gait Assessment Score: 22 % Disability: 26.6700 CATSIB Score (Max score 120 seconds): 95 Lower Extremity Functional Score: 43
== END 2021-04-02 19:00 | disposition home or self-care (01) ==
LOC: PT 16:30
PROVIDERS: PCP Family Medicine; Referring Provider Psychiatry & Neurology Neurology; Visit Provider Psychiatry & Neurology Neurology
DX: G12.21 Amyotrophic lateral sclerosis (principal); R53.1 Weakness; R26.9 Unspecified abnormalities of gait and mobility
CPT/HCPCS: 97110; 97162; 97166; 97530

== ENCOUNTER → 2021-04-03 15:08 | Outpatient (CLI) | payer OTHER, SELFPAY ==
[2021-04-03 15:12] VITALS: BP 121/91; PULSE 50; RESP 16; TEMP 35.9; O2SAT 97
[2021-04-03] MEDS: Mepolizumab 100 MG VIAL SQ (15:50)
== END ==
PROVIDERS: PCP Family Medicine; Referring Provider Internal Medicine Critical Care Medicine; Visit Provider Internal Medicine Critical Care Medicine
DX: J45.50 Severe persistent asthma, uncomplicated (principal)
CPT/HCPCS: 96372; J2182

== ENCOUNTER 2021-05-01 14:23 | Outpatient (CLI) | payer OTHER, SELFPAY ==
[2021-05-01 14:30] VITALS: BP 116/81; PULSE 53; RESP 16; TEMP 36.8; O2SAT 96
[2021-05-01] MEDS: Mepolizumab 100 MG VIAL SQ (15:27)
== END 2021-05-01 23:59 | disposition short-term general hospital (02) ==
LOC: MEDOUTP 14:26
PROVIDERS: PCP Family Medicine; Referring Provider Internal Medicine Critical Care Medicine; Visit Provider Internal Medicine Critical Care Medicine
DX: J45.50 Severe persistent asthma, uncomplicated (principal)
CPT/HCPCS: 96372; J2182

== ENCOUNTER 2021-05-29 14:37 | Outpatient (CLI) | payer OTHER, SELFPAY ==
[2021-05-29 14:42] VITALS: BP 130/76; PULSE 55; RESP 16; TEMP 36; O2SAT 98
[2021-05-29] MEDS: Mepolizumab 100 MG VIAL SQ (15:05)
--- NOTE | 2021-05-29 15:07 | ONC ---
SQ injection right arm. tolerated well.
== END 2021-05-29 23:59 | disposition home or self-care (01) ==
LOC: MEDOUTP 14:37
PROVIDERS: PCP Family Medicine; Referring Provider Internal Medicine Critical Care Medicine; Visit Provider Internal Medicine Critical Care Medicine
DX: J45.50 Severe persistent asthma, uncomplicated (principal)
CPT/HCPCS: 96372; J2182

== ENCOUNTER 2021-06-26 14:44 | Outpatient (CLI) | payer OTHER, SELFPAY ==
[2021-06-26 15:02] VITALS: BP 118/77; PULSE 58; RESP 18; TEMP 36.5; O2SAT 95; BMI 31.1
[2021-06-26] MEDS: Mepolizumab 100 MG VIAL SQ (15:10)
== END 2021-06-26 23:59 | disposition home or self-care (01) ==
LOC: MEDOUTP 14:45
PROVIDERS: PCP Family Medicine; Referring Provider Internal Medicine Critical Care Medicine; Visit Provider Internal Medicine Critical Care Medicine
DX: J45.50 Severe persistent asthma, uncomplicated (principal)
CPT/HCPCS: 96372; J2182

== ENCOUNTER 2021-07-24 14:30 | Outpatient (CLI) | payer OTHER, SELFPAY ==
[2021-07-24 14:36] VITALS: BP 112/71; PULSE 60; RESP 16; TEMP 35.8; O2SAT 95; BMI 31.1
[2021-07-24] MEDS: Mepolizumab 100 MG VIAL SQ (15:09)
== END 2021-07-24 23:59 | disposition home or self-care (01) ==
LOC: MEDOUTP 14:30
PROVIDERS: PCP Family Medicine; Referring Provider Internal Medicine Critical Care Medicine; Visit Provider Internal Medicine Critical Care Medicine
DX: J45.50 Severe persistent asthma, uncomplicated (principal)
CPT/HCPCS: 96372; J2182

== ENCOUNTER → 2021-08-21 | Outpatient (CLI) | payer OTHER, SELFPAY ==
[2021-08-21 14:51] VITALS: BP 128/78; PULSE 63; RESP 16; TEMP 35.9; O2SAT 96; BMI 31.1
[2021-08-21] MEDS: Mepolizumab 100 MG VIAL SQ (15:07)
== END | disposition home or self-care (01) ==
LOC: MEDOUTP 14:45
PROVIDERS: PCP Family Medicine; Referring Provider Internal Medicine Critical Care Medicine; Visit Provider Internal Medicine Critical Care Medicine
DX: J45.50 Severe persistent asthma, uncomplicated (principal)
CPT/HCPCS: 96372; J2182

== ENCOUNTER → 2021-09-18 | Outpatient (CLI) | payer OTHER, SELFPAY ==
[2021-09-18 15:16] VITALS: BP 118/76; PULSE 65; RESP 16; TEMP 36.4; O2SAT 97; BMI 31.1
[2021-09-18] MEDS: Mepolizumab 100 MG VIAL SQ (15:40)
== END | disposition home or self-care (01) ==
LOC: MEDOUTP 15:09
PROVIDERS: PCP Family Medicine; Referring Provider Internal Medicine Critical Care Medicine; Visit Provider Internal Medicine Critical Care Medicine
DX: J45.50 Severe persistent asthma, uncomplicated (principal)
CPT/HCPCS: 96372; J2182

== ENCOUNTER → 2021-10-17 | Outpatient (CLI) | payer OTHER, SELFPAY ==
[2021-10-17 14:42] VITALS: BP 115/69; PULSE 66; RESP 14; TEMP 36.1; O2SAT 96; BMI 31.4
[2021-10-17] MEDS: Mepolizumab 100 MG VIAL SQ (14:53)
== END | disposition home or self-care (01) ==
LOC: MEDOUTP 14:36
PROVIDERS: PCP Family Medicine; Referring Provider Internal Medicine Critical Care Medicine; Visit Provider Internal Medicine Critical Care Medicine
DX: J45.50 Severe persistent asthma, uncomplicated (principal)
CPT/HCPCS: 96372; J2182

== ENCOUNTER → 2021-11-13 | Outpatient (CLI) | payer OTHER, SELFPAY ==
--- NOTE | 2021-11-13 07:43 | US_ITS ---
STUDY: ABDOMINAL ULTRASOUND - RIGHT UPPER QUADRANT REASON FOR VISIT: Male, 61 years old RUQ PAIN TECHNIQUE: Ultrasound evaluation of the right upper quadrant was performed with real-time and static lopes-scale imaging. TECHNICAL QUALITY: Adequate. COMPARISON: None. FINDINGS: Liver: The liver is enlarged and measures 19.2 cm. There is a heterogeneous echogenicity of the liver. The bile ducts are within normal limits. There is hepatic color flow. The direction of portal flow is hepatopetal. There is no demonstrated mass lesion. Gallbladder: Normal distended gallbladder. The gallbladder wall measures 2.0 mm. There is a negative sonographic Robert''s sign. There is no pericholecystic fluid. There is a solitary echogenic gallstone within the gallbladder. This measures 1.9 cm x 2.2 cm x 1.7 cm. There is also evidence of a 4 mm x 2 mm x 3 mm gallbladder polyp. Common Bile Duct (C.B.D.): The common bile duct measures 4 mm. Pancreas: Normal size of the head, body and tail of the pancreas. There is normal echogenicity of the pancreas. There is no demonstrated pancreatic mass or cyst. Right Kidney: Normal size of the right kidney. The right kidney measures 12.9 cm x 5.8 cm x 5.2 cm. Normal renal cortex. The right cortex measures 1.5 cm. There are 2 small renal cysts. The largest cyst measures 1.5 cm x 1.6 x 1.5 cm. This lies in the lower pole. There is no right hydronephrosis. US/Abdomen Limited IMPRESSION: Hepatomegaly. Heterogeneous appearance of the hepatic echotexture. Solitary gallstone. Small gallbladder polyp. There are 2 small right renal cysts. Electronically Signed: Jeovanny Cesar MD at 14:10 EDT ,
== END | disposition home or self-care (01) ==
LOC: US 07:42
PROVIDERS: PCP Family Medicine; Referring Provider Family Medicine; Visit Provider Family Medicine
DX: K80.20 Calculus of gallbladder without cholecystitis without obstruction (principal)
CPT/HCPCS: 76705

== ENCOUNTER → 2021-11-17 | Outpatient (CLI) | payer OTHER, SELFPAY ==
[2021-11-17 14:08] VITALS: BP 116/75; PULSE 56; RESP 16; TEMP 36; O2SAT 97; BMI 31.7
[2021-11-17] MEDS: Mepolizumab 100 MG VIAL SQ (14:21)
== END | disposition home or self-care (01) ==
LOC: MEDOUTP 14:04
PROVIDERS: PCP Family Medicine; Referring Provider Internal Medicine Critical Care Medicine; Visit Provider Internal Medicine Critical Care Medicine
DX: J45.50 Severe persistent asthma, uncomplicated (principal)
CPT/HCPCS: 96372; J2182

== ENCOUNTER → 2021-11-21 | Outpatient (CLI) | payer OTHER, SELFPAY ==
--- NOTE | 2021-11-21 07:33 | EKG12_ITS ---
Test Reason : PREOP Blood Pressure : / mmHG Vent. Rate : 059 BPM Atrial Rate : 059 BPM P-R Int : 122 ms QRS Dur : 106 ms QT Int : 430 ms P-R-T Axes : 083 -31 -26 degrees QTc Int : 425 ms Sinus bradycardia Left axis deviation Nonspecific T wave abnormality Abnormal ECG Confirmed by ADA FISCHER, ROXIE ([id number]), editorial project manager WALESKA AUSTIN ([id number]) on 11/22/2021 8:36:21 AM Referred By: TAMY Confirmed By:ROXIE CABALLERO MD
[2021-11-21 07:36] LABS: Hematocrit 49.1 % (40-54); Hemoglobin 15.8 g/dL (13.0-16.5); Mean Corp Hgb Conc 32.2 g/dL (32-36); Mean Corpuscular Hgb 30.5 pg (27.0-32.0); Mean Corpuscular Volume 94.8 fL (80-94); Mean Platelet Vol. 11.4 fl (6.2-12.0); Platelet Count 195 K/mm3 (150-450); RBC Distribution Width CV 13.8 % (11.6-14.6); RBC Distribution Width SD 47.9 fl (35.1-43.9); Red Blood Count 5.18 M/mm3 (4.6-6.2); White Blood Count 7.5 K/mm3 (4.4-11.0)
[2021-11-21 08:00] LABS: Anion Gap 5 (5-15); BUN 22 mg/dL (7-18); BUN/Creat Ratio 18.6 RATIO (10-20); Calcium,Total 8.9 mg/dL (8.5-10.1); Chloride 102 mmol/L (98-107); Creatinine, Serum 1.18 mg/dL (0.70-1.30); EST Glomerular Filtration Rate 66 mL/min (>60); Est Glom Filt Rate - Afr Amer 80 mL/min (>60); Glucose 131 mg/dL (74-106); Potassium 4.3 mmol/L (3.5-5.1); Sodium Level 138 mmol/L (136-145)
== END | disposition home or self-care (01) ==
LOC: PAT 12-29 09:54
PROVIDERS: Anesthesiology; PCP Family Medicine; Visit Provider Surgery
DX: R00.1 Bradycardia, unspecified (principal); R94.31 Abnormal electrocardiogram [ECG] [EKG]; Z01.818 Encounter for other preprocedural examination
CPT/HCPCS: 36415; 80048; 84443; 85027; 93005

== ENCOUNTER → 2022-01-19 | Outpatient (CLI) | payer OTHER, SELFPAY ==
[2022-01-19 14:20] VITALS: BP 118/81; PULSE 62; RESP 16; O2SAT 96; BMI 31.8
[2022-01-19] MEDS: Mepolizumab 100 MG VIAL SQ (14:53)
== END | disposition home or self-care (01) ==
LOC: MEDOUTP 14:13
PROVIDERS: PCP Family Medicine; Referring Provider Internal Medicine Critical Care Medicine; Visit Provider Internal Medicine Critical Care Medicine
DX: J45.50 Severe persistent asthma, uncomplicated (principal)
CPT/HCPCS: 96372; J2182

== ENCOUNTER → 2022-03-04 | Outpatient (CLI) | payer OTHER, SELFPAY ==
[2022-03-04 16:28] LABS: T4 Free Direct 0.89 ng/dL (0.76-1.46)
== END | disposition home or self-care (01) ==
LOC: LABSPEC 15:27
PROVIDERS: PCP Family Medicine; Visit Provider Family Medicine
DX: E03.9 Hypothyroidism, unspecified (principal)
CPT/HCPCS: 84439; 84443

== ENCOUNTER → 2022-04-17 | Outpatient (CLI) | payer OTHER, SELFPAY ==
[2022-04-17 13:15] LABS: T4 Free Direct 1.12 ng/dL (0.76-1.46)
== END | disposition home or self-care (01) ==
PROVIDERS: PCP Family Medicine; Visit Provider Family Medicine
DX: E03.9 Hypothyroidism, unspecified (principal)
CPT/HCPCS: 36415; 84439; 84443

== ENCOUNTER → 2022-05-29 | Outpatient (CLI) | payer OTHER, SELFPAY ==
[2022-05-29 13:39] LABS: T4 Free Direct 1.26 ng/dL (0.76-1.46); Thyroid Stim Hormone (TSH) 6.61 uIU/mL (0.358-3.74)
== END | disposition home or self-care (01) ==
LOC: BFHLAB 10:07
PROVIDERS: PCP Family Medicine; Visit Provider Family Medicine
DX: E03.9 Hypothyroidism, unspecified (principal)
CPT/HCPCS: 36415; 84439; 84443

== ENCOUNTER → 2022-08-06 | Outpatient (CLI) | payer OTHER, SELFPAY ==
[2022-08-06 16:00] LABS: Thyroid Stim Hormone (TSH) 4.09 uIU/mL (0.358-3.74)
== END | disposition home or self-care (01) ==
PROVIDERS: PCP Family Medicine; Referring Provider Family Medicine; Visit Provider Family Medicine
DX: E03.9 Hypothyroidism, unspecified (principal)
CPT/HCPCS: 36415; 84439; 84443

== ENCOUNTER → 2022-11-09 | Outpatient (CLI) | payer MEDICARE, SELFPAY ==
[2022-11-09 12:58] LABS: Absolute Lymphocyte Count 1.02 X10^3/uL (0.83-4.51); Absolute Neutrophil Count 4.8 X10^3/uL (2.0-7.7); Basophil# 0.05 X10^3/uL; Basophil% 0.8 % (0-1); Eosinophil# 0.04 X10^3/uL; Eosinophils% 0.6 % (0-5); Hematocrit 49.8 % (40-54); Lymphocyte # 1.02 X10^3/ul (0.83-4.51); Lymphocyte % 15.7 % (19-41); Mean Corp Hgb Conc 32.1 g/dL (32-36); Mean Corpuscular Hgb 29.6 pg (27.0-32.0); Mean Corpuscular Volume 92.2 fL (80-94); Mean Platelet Vol. 11.3 fl (6.2-12.0); Monocyte% 9.2 % (0-10); NRBC Flagged by Analyzer 0 % (0-5); Neutrophil # 4.76 X10^3/uL (2.7-7.7); Neutrophil % 73.4 % (47-70); Platelet Count 207 K/mm3 (150-450); RBC Distribution Width CV 14.3 % (11.6-14.6); RBC Distribution Width SD 47.8 fl (35.1-43.9); White Blood Count 6.5 K/mm3 (4.4-11.0)
[2022-11-09 13:46] LABS: ALB/GLOB Ratio 1.2 RATIO (0.9-2.4); AST(SGOT) 20 U/L (15-37); Alanine Aminotransfer ALT/SGPT 46 U/L (16-61); Albumin, Serum 4.1 g/dL (3.2-5.0); Alkaline Phosphatase 136 U/L (45-117); Anion Gap 5 (5-15); BUN 18 mg/dL (7-18); BUN/Creat Ratio 18.6 RATIO (10-20); Calcium,Total 8.9 mg/dL (8.5-10.1); Chloride 105 mmol/L (98-107); Cholesterol 144 mg/dL (200); Creatinine, Serum 0.97 mg/dL (0.70-1.30); EST Glomerular Filtration Rate 83 mL/min (>60); Est Glom Filt Rate - Afr Amer 101 mL/min (>60); Globulin 3.5 g/dL (2.2-4.2); Glucose 121 mg/dL (74-106); High Density Lipoprotein 32 mg/dL; Potassium 4.3 mmol/L (3.5-5.1); Protein, Total 7.6 g/dL (6.4-8.2); Sodium Level 138 mmol/L (136-145); T4 Free Direct 1.66 ng/dL (0.76-1.46); Thyroid Stim Hormone (TSH) 0.24 uIU/mL (0.358-3.74); Triglycerides 349 mg/dL; Very Low Density Lipoprotein 70 mg/dL (5-40)
== END | disposition home or self-care (01) ==
LOC: BFHLAB 10:12
PROVIDERS: PCP Family Medicine; Referring Provider Family Medicine; Visit Provider Family Medicine
DX: E03.9 Hypothyroidism, unspecified (principal); I10 Essential (primary) hypertension; E78.5 Hyperlipidemia, unspecified
CPT/HCPCS: 36415; 80053; 80061; 84439; 84443; 85025

== ENCOUNTER → 2022-12-30 | Outpatient (CLI) | payer MEDICARE, SELFPAY ==
[2022-12-30 16:12] LABS: T4 Free Direct 1.34 ng/dL (0.76-1.46); Thyroid Stim Hormone (TSH) 3.71 uIU/mL (0.358-3.74)
== END | disposition home or self-care (01) ==
PROVIDERS: PCP Family Medicine; Referring Provider Family Medicine; Visit Provider Family Medicine
DX: E03.9 Hypothyroidism, unspecified (principal)
CPT/HCPCS: 36415; 84439; 84443

== ENCOUNTER 2023-05-13 16:18 | Emergency (ER) | payer MEDICARE, SELFPAY ==
[2023-05-13 16:19] VITALS: BP 108/90; PULSE 87; RESP 16; TEMP 37.1; O2SAT 96; BMI 31.1
--- NOTE | 2023-05-13 16:34 | RAD_ITS ---
STUDY: X-RAY - RIGHT SHOULDER REASON FOR EXAM: Male, 63 years old. injury/fall TECHNIQUE: 2 view(s) of the shoulder. COMPARISON: None. FINDINGS: Mild to moderate displacement of fracture across the surgical neck of the proximal humerus. There is rotation of the humeral head relative to the humerus. Normal glenohumeral articulation. Normal acromioclavicular joint. Normal acromion. The soft tissue structures are unremarkable. Normal visualized pulmonary apex. RAD/Shoulder min 2 Views IMPRESSION: Moderately displaced and rotated fracture through the surgical neck of the proximal humerus. Electronically Signed: Thom Mccarty MD at 17:06 EST ,
--- NOTE | 2023-05-13 17:32 | EDS_ITS ---
HPI History of Present Illness Chief Complaint: Upper Extremity Injury Detail of Chief Complaint: Right shoulder injury Informant: patient Narrative Narrative: Patient presents secondary to right shoulder injury. He has ALS diagnosed in . Because of this his left arm is weak. He was getting help up from the dinner table when his brother pulled a little too hard on his right arm. He lost his balance and fell backwards reaching for a post to catch himself. He injured his right shoulder. He denies any other injury. No paresthesias. [facility] Medical History Asthma Biatrial enlargement Cardiology follow-up encounter Diastolic dysfunction Dilated cardiomyopathy Hiatal hernia History of echocardiogram History of transesophageal echocardiography (ALEXANDRA) HTN (hypertension) Hyperlipidemia Hypothyroid Left ventricular hypertrophy Leg cramps Non-smoker Nonrheumatic mitral (valve) insufficiency Nonrheumatic tricuspid (valve) insufficiency Pulmonic valve insufficiency Secondary pulmonary hypertension Shortness of breath Wears glasses Home Medications albuterol sulfate 2.5 mg/3 mL (0.083 %) solution for nebulization 2.5 mg inhalation Q4H PRN PRN Shortness Of Breath 10/30/13 [History Last Taken 10/30/13 20:00] albuterol sulfate 90 mcg/actuation aerosol inhaler 2 puff inhalation Q4H PRN PRN Wheezing ##1 11/02/13 [Rx Last Taken Unknown] coenzyme Q10 100 mg capsule 100 mg PO QHS 02/01/19 [History Last Taken Unknown] spironolactone 25 mg tablet 25 mg PO DAILY 02/01/19 [History Last Taken Unknown] atorvastatin 20 mg tablet 10 mg PO QHS 07/18/20 [History Last Taken Unknown] empagliflozin 10 mg tablet (Jardiance) 10 mg PO DAILY Heart 01/09/21 [History Last Taken Unknown] carvedilol 6.25 mg tablet 6.25 mg PO BID 01/23/21 [History Last Taken Unknown] 2 Bg 2 tab PO/SL BID ALS neurology vitamin 11/20/21 [History Last Taken Unknown] riluzole 50 mg tablet 50 mg PO BID ALS 11/20/21 [History Last Taken Unknown] sacubitril 97 mg-valsartan 103 mg tablet (Entresto) 1 tab PO BID 11/20/21 [History Last Taken Unknown] Nucala 100 mg subcutaneous solution (mepolizumab) 100 mg subcut ONCE #1 ea 03/19/22 [Clinic Last Taken Unknown] levothyroxine 112 mcg tablet (Euthyrox) 150 mcg PO DAILY 03/19/22 [History Last Taken Unknown] mepolizumab 100 mg subcutaneous solution 100 mg subcut QMONTH asthma #1 ea 12/04/22 [Rx Last Taken Unknown] Breo Ellipta 200 mcg-25 mcg/dose powder for inhalation (fluticasone furoate- vilanterol) 1 inh inhalation DAILY #3 ea 02/09/23 [Rx Last Taken Unknown] hydrocodone-acetaminophen 5-325mg 5mg-325mg 1 tab PO Q6H PRN PRN Pain 3 days #12 TABLETS 05/13/23 [Rx Last Taken Unknown] Allergy/AdvReac Type Severity Reaction Status Date / Time Sulfa (Sulfonamide Allergy Severe Hives Verified 05/13/23 16:21 Antibiotics) sulfamethoxazole Allergy Hives Verified 05/13/23 16:21 [From Bactrim] trimethoprim [From Bactrim] Allergy Hives Verified 05/13/23 16:21 Family History Father Kidney disease Sister Arthritis Lung cancer Diabetes Myocardial infarction, Onset Age: 35 Hypertension Brother Diabetes Hypertension Heart disease High cholesterol Surgical History H/O hernia repair History of appendectomy History of circumcision History of colonoscopy History of ear surgery History of nasal polypectomy History of right and left heart catheterization (LHC) (08/26/18) History of varicose vein ligation and stripping ICD (implantable cardioverter-defibrillator) in place (08/24/19) Social History Smoking Status: Never smoker second hand exposure: Yes alcohol intake: never substance use type: does not use ROS ROS ED Constitutional Constitutional ED: Denies chills or fever(s) Eyes Eyes: Denies discharge from eye(s) ENT ENT ED: Denies discharge from eye(s), rhinorrhea or sore throat Cardiovascular Cardiovascular: Denies chest pain Respiratory/Chest Respiratory/Chest: Denies cough or dyspnea Gastrointestinal Gastrointestinal: Denies abdominal pain, nausea or vomiting Musculoskeletal Musculoskeletal: Reports extremity pain; Denies back pain Integumentary Denies Abrasions or rash Neurologic Neurologic: Reports weakness; Denies headache(s) or paresthesias Endocrine Endocrinology: Denies polydipsia or polyuria Allergic/Immunologic Allergic/Immunologic ED: Denies lip swelling or urticaria EXAM Physical Exam Const Vital Signs: 05/13/23 16:19 Temperature 98.7 F Temperature Source Temporal Pulse Rate 87 Respiratory Rate 16 Blood Pressure 108/90 H Blood Pressure Mean 96 Pulse Ox 96 Oxygen Delivery Method Room Air Positive well nourished and well developed General Appearance ED: well developed HEENT Reports moist mucous membranes Eyes EOMs intact bilaterally Chest Wall inspection of chest normal and palpation of chest normal Resp normal respiratory effort and clear to auscultation bilaterally Cardio regular rate and regular rhythm Extremity Extremity Narrative: Tenderness on the patient around the right shoulder. Decreased range of motion secondary to pain. Strong distal pulses. Good hand grasp. Neuro oriented x3 Psych mental status grossly normal MDM MDM MDM Narrative Medical decision making narrative: Right shoulder x-rays were obtained per nursing protocol from triage. Per my interpretation patient has a transverse fracture of the proximal humerus. No evidence of dislocation. Radiology interpretation reviewed and agrees. Patient be given a dose of Beacon. He has known to Dr. Hobbs. Ortho was paged 2 separate occasions but did not receive a return call back patient is in a sling and swath. His pain is well-controlled with Beacon. He will be discharged home with his to follow-up with orthopedics as an outpatient. Radiography Diagnostic Testing: Clinical Impression(s) from Imaging Studies Shoulder X-Ray 05/13/23 16:34 IMPRESSION: Moderately displaced and rotated fracture through the surgical neck of the proximal humerus. Electronically Signed: Thom Mccarty MD at 17:06 EST , Discharge Plan Triage Chief Complaint: Upper Extremity Injury ED Provider: Lynne Villeda Dx/Rx/DC Orders Clinical Impression: Fracture of proximal humerus Instructions: Understanding a Humerus Fracture Prescriptions: New hydrocodone-acetaminophen 5-325 mg tablet 1 tab PO Q6H PRN PRN (Reason: Pain) 3 Days Qty: 12 0RF No Action carvedilol 6.25 mg tablet 6.25 mg PO BID Nucala 100 mg recon soln 100 mg subcut ONCE Qty: 1 0RF albuterol sulfate 2.5 MG/3 ML solution for nebulization 2.5 mg INHALATION Q4H PRN PRN (Reason: Shortness Of Breath) Patient Comments: lungs, shortness of breath albuterol sulfate 1 INHALER inhaler 2 puff INHALATION Q4H PRN PRN (Reason: Wheezing) Qty: 1 3RF Patient Comments: for lungs, shortness of breath spironolactone 25 MG tablet 25 mg PO DAILY coenzyme Q10 100 MG capsule 100 mg PO QHS atorvastatin 20 MG tablet 10 mg PO QHS Jardiance 10 mg Tablet 10 mg PO DAILY levothyroxine [Euthyrox] 112 mcg tablet 150 mcg PO DAILY 2 Bg 2 tab PO/SL BID riluzole 50 mg tablet 50 mg PO BID Rx Instructions: must be taken on empty stomach; no food 1 hr after or 2-3 hrs before dose Entresto 97-103 mg tablet 1 tab PO BID mepolizumab 100 mg recon soln 100 mg SC QMONTH Qty: 1 11RF fluticasone furoate-vilanterol [Breo Ellipta] 200-25 mcg/dose blister with device 1 inh INHALATION DAILY Qty: 3 3RF Primary Care Provider: Yovani Pat Referrals: Gómez Hobbs DO [Med Staff - Active Staff] - 3-5 Days Yovani Pat DO [Primary Care Provider] - Disposition Disposition: Home, Self Care Discharge Date/Time: 05/13/23 18:59
--- OUTSIDE RECORDS SUMMARY | 2023-05-13 17:32 | XMS RPT_ITS | CCD ---
Author Name Unknown Address [address] [place] [address] Organization [facility] Care Team Providers Care 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 Name Role Phone Noe Amor Silva Unavailable Teddy FISCHER, Milton Fisher Primary Care Provider Chris Reeves MD Unavailable [phone] Kayce FISCHER, Sandy Unavailable Teddy FISCHER, Milton Fisher Primary Care Provider Chris Reeves MD Unavailable Kayce FISCHER, Sandy Unavailable Milton Espinal MD Primary Care Provider Chris Reeves MD Unavailable Kayce FISCHER, Zikai Unavailable Kacye FISCHER, Ziad Unavailable MILTON ESPINAL Primary Care Unavailable TED SALEH Referring Unavailable MILTON ESPINAL Primary Care Unavailable TED SALEH Referring Unavailable TED SALEH Attending Unavailable MILTON ESPINAL Primary Care Unavailable TED SALEH Referring Unavailable MILTON ESPINAL Primary Care Unavailable JOSH GO S Attending Unavailable MILTON ESPINAL Primary Care Unavailable TED SALEH Referring Unavailable SANDY DEVRIES Attending Unavailable MILTON ESPINAL Primary Care Unavailable MILTON ESPINAL Primary Care Unavailable MILTON ESPINAL Primary Care Unavailable SPOER, JOSH S Referring Unavailable MILTON ESPINAL Primary Care Unavailable SPOLTER, JOSH S Referring Unavailable SPOLTER, JOSH S Attending Unavailable MILTON ESPINAL Primary Care Unavailable FRANCIS COLLINS Referring Unavailable SANDY DEVRIES Referring Unavailable MILTON ESPINAL Primary Care Unavailable Allergies Allergy Classification Reported Allergen(s) Allergy Type Date of Onset Reaction(s) Facility (1 source) sulfamethoxazole Drug Allergy [facility] Work Phone: (17 sources) trimethoprim; Translations: [TRIMETHOPRIM] Drug Allergy 01-20-20 22 Unknown [facility] Work Phone: (20 sources) Sulfonamides (Antibiotic); Translations: [SULFA (SULFONAMIDE ANTIBIOTICS)] Drug Intolerance 11-27-19 15 [facility] Medications Current Medications Medication Drug Class(es) Dates Sig (Normalized) Sig (Original) perflutren lipid microspheres 1.3 mL in NaCl (PF) 0.9% 10 mL injection (DEFINITY) (17 sources) Start: 12-30-2020 End: 03-31-2022 perflutren lipid microspheres 1.3 mL in NaCl (PF) 0.9% 10 mL injection (DEFINITY) riluzole 50 mg oral tablet (20 sources) Benzothiazole Start: 05-26-2021 End: 06-28-2023 take 1 tablet by mouth every twelve hours riluzole (RILUTEK) 50 mg tablet Indications: ALS (amyotrophic lateral sclerosis) ([facility]) Take 1 tablet by mouth every 12 hours. 180 tablet 1 12/30/2022 06/28/2023 Active Completed/Discontinued Medications Medication Drug Class(es) Dates Sig (Normalized) Sig (Original) ACAPELLA (1 source) Start: 07-16-2015 ACAPELLA Use Twice daily Dx: Bronchiectesis ACAPELLA Janelle Toro CNP albuterol 0.83 mg/ml inhalant solution (20 sources) beta2-Adrenergic Agonist Start: 12-02-2016 take 1 dose by inhalation every four hours as needed ALBUTEROL SULFATE (2.5 MG/3ML) 0.083% NEBU INH 1 vial q4h as needed ALBUTEROL SULFATE [id number] Leslie Quintana LPN Problems Active Problems Problem Classification Problem Date Documented Da te Episodic/Chronic Asthma (18 sources) Moderate persistent asthma; Translations: [Severe persistent asthma] Onset: 02-08-2014 Resolved: 11-05-2016 11-05-2016 Chronic Conduction disorders (15 sources) Automatic implantable cardiac defibrillator in situ; Translations: [Presence of automatic (implantable) cardiac defibrillator] Onset: 08-24-2019 03-02-2022 Chronic Congestive heart failure; nonhypertensive (20 sources) Chronic combined systolic and diastolic heart failure; Translations: [Chronic combined systolic (congestive) and diastolic (congestive) heart failure] Onset: 07-04-2019 07-04-2019 Chronic Disorders of lipid metabolism (20 sources) Mixed hyperlipidemia; Translations: [Mixed hyperlipidemia] Onset: 05-18-2006 09-12-2010 Chronic Essential hypertension (20 sources) Benign essential hypertension; Translations: [Essential (primary) hypertension] Onset: 05-18-2006 09-12-2010 Chronic Heart valve disorders (15 sources) Pulmonic valve regurgitation; Translations: [Nonrheumatic pulmonary valve insufficiency] Onset: 03-02-2022 03-02-2022 Chronic Other aftercare (1 source) Taking high risk medication; Translations: [Other terminal system operator (current) drug therapy] 12-30-2022 Episodic Other and ill-defined heart disease (15 sources) Bilateral enlargement of atria; Translations: [Cardiomegaly] Onset: 03-02-2022 03-02-2022 Chronic Other and ill-defined heart disease (15 sources) Left ventricular hypertrophy; Translations: [Cardiomegaly] Onset: 03-02-2022 03-02-2022 Chronic Other hereditary and degenerative nervous system conditions (16 sources) Amyotrophic lateral sclerosis; Translations: [Amyotrophic lateral sclerosis] Onset: 04-07-2021 03-02-2022 Chronic Other hereditary and degenerative nervous system conditions (1 source) Amyotrophic lateral sclerosis; Translations: [ALS (amyotrophic lateral sclerosis) (HCC)] Onset: 12-30-2022 Chronic Other nervous system disorders (15 sources) Spinal cord disease; Translations: [Disease of spinal cord, unspecified] Onset: 03-20-2021 03-02-2022 Chronic Other nutritional; endocrine; and metabolic disorders (20 sources) Obesity; Translations: [Obesity, unspecified] Onset: 08-29-2009 08-29-2009 Chronic Other nutritional; endocrine; and metabolic disorders (20 sources) Obese class I; Translations: [Obesity, unspecified] Onset: 12-26-2019 12-26-2019 Chronic Other upper respiratory infections (20 sources) Chronic sinusitis; Translations: [Chronic sinusitis, unspecified] Onset: 03-01-2015 03-01-2015 Chronic Kath-; endo-; and myocarditis; cardiomyopathy (except that caused by tuberculosis or sexually transmitted disease) (20 sources) Cardiomyopathy; Translations: [Other cardiomyopathies] Onset: 07-04-2019 07-04-2019 Chronic Thyroid disorders (20 sources) Hypothyroidism; Translations: [Hypothyroidism, unspecified] Onset: 08-30-2009 09-12-2010 Chronic Past or Other Problems Problem Classification Problem Date Documented Date Episodic/Chronic Abdominal hernia (16 sources) Hiatal hernia; Translations: [Diaphragmatic hernia without obstruction or gangrene] Onset: 02-08-2014 02-08-2014 Episodic Cardiac dysrhythmias (15 sources) Bradycardia; Translations: [Bradycardia, unspecified] Onset: 01-15-2022 03-02-2022 Episodic Diabetes mellitus without complication (20 sources) Impaired fasting glycemia; Translations: [Impaired fasting glucose] Onset: 08-29-2009 09-12-2010 Episodic Malaise and fatigue (15 sources) Asthenia; Translations: [Weakness] Onset: 03-02-2022 03-02-2022 Episodic Other aftercare (1 source) Other penitentiary (current) drug therapy; Translations: [High risk medication use] Onset: 12-30-2022 Episodic Other lower respiratory disease (1 source) Dyspnea; Translations: [Dyspnea, unspecified] Onset: 07-16-2015 07-16-2015 Episodic Other nervous system disorders (15 sources) Abnormal gait; Translations: [Unspecified abnormalities of gait and mobility] Onset: 03-02-2022 03-02-2022 Episodic Other nervous system disorders (15 sources) Muscle fasciculation; Translations: [Fasciculation] Onset: 03-02-2022 03-02-2022 Episodic Other skin disorders (20 sources) Eruption; Translations: [Rash and other nonspecific skin eruption] Onset: 06-20-2012 04-14-2021 Episodic Other upper respiratory disease (1 source) Nasal polyp; Translations: [Nasal polyp, unspecified] Onset: 02-08-2014 02-08-2014 Episodic Other upper respiratory disease (20 sources) Polyp of nasal cavity and/or nasal sinus; Translations: [Nasal polyp, unspecified] Onset: 03-01-2015 03-01-2015 Episodic Residual codes; unclassified (15 sources) History of hernia repair; Translations: [Other specified postprocedural states] Onset: 03-02-2022 03-02-2022 Episodic Residual codes; unclassified (15 sources) H/O: major vascular surgery; Translations: [Other specified postprocedural states] Onset: 03-02-2022 03-02-2022 Episodic Unclassified (1 source) Echocardiogram abnormal; Translations: [Abnormal findings on diagnostic imaging of heart and coronary circulation] Onset: 10-17-2015 10-17-2015 Episodic Results Test Name Value Interpretation Reference Range Facil ity Vital Signs Date Time Vital Sign Value Performing Clinician Facility 01-22-2023 10:44-0400 Body height 182.9 cm Sandy Devries MD Work Phone: [facility] 01-22-2023 10:44-0400 Body weight 107.96 kg Sandy Devries MD Work Phone: [facility] 01-22-2023 10:44-0400 Diastolic blood pressure 87 mm[Hg] Sandy Devries MD Work Phone: [facility] 01-22-2023 10:44-0400 Heart rate 65 /min Sandy Devries MD Work Phone: [facility] 01-22-2023 10:44-0400 Respiratory rate 15 /min Sandy Devries MD Work Phone: [facility] 01-22-2023 10:44-0400 SaO2% (BldA) [Mass fraction] 94 % Sandy Devries MD Work Phone: [facility] 01-22-2023 10:44-0400 Systolic blood pressure 135 mm[Hg] Sandy Devries MD Work Phone: [facility] 12-30-2022 16:20-0400 Body height 182.9 cm Josh Go MD Work Phone: [facility] 12-30-2022 16:20-0400 Body weight 107.96 kg Josh Go MD Work Phone: [facility] 12-30-2022 16:20-0400 Diastolic blood pressure 88 mm[Hg] Josh Go MD Work Phone: [facility] 12-30-2022 16:20-0400 Heart rate 69 /min Josh Go MD Work Phone: [facility] 12-30-2022 16:20-0400 SaO2% (BldA) [Mass fraction] 96 % Josh Go MD Work Phone: [facility] 12-30-2022 16:20-0400 Systolic blood pressure 114 mm[Hg] Josh Go MD Work Phone: [facility] 10-16-2021 10:46-0400 Body height 182.9 cm Sandy Devries MD Work Phone: [facility] 10-16-2021 10:46-0400 Body weight 106.59 kg Sandy Devries MD Work Phone: [facility] 10-16-2021 10:46-0400 Diastolic blood pressure 78 mm[Hg] Sandy Devries MD Work Phone: [facility] 10-16-2021 10:46-0400 Heart rate 70 /min Sandy Devries MD Work Phone: [facility] 10-16-2021 10:46-0400 SaO2% (BldA) [Mass fraction] 97 % Sandy Devries MD Work Phone: [facility] 10-16-2021 10:46-0400 Systolic blood pressure 120 mm[Hg] Sandy Devries MD Work Phone: [facility] 08-12-2021 11:59-0400 Body height 182.9 cm Ted Saleh MD Work Phone: [facility] 08-12-2021 11:59-0400 Body weight 104.33 kg Ted Saleh MD Work Phone: [facility] 08-12-2021 11:59-0400 Diastolic blood pressure 88 mm[Hg] Ted Saleh MD Work Phone: [facility] 08-12-2021 11:59-0400 Heart rate 50 /min Ted Saleh MD Work Phone: [facility] 08-12-2021 11:59-0400 Systolic blood pressure 160 mm[Hg] Ted Saleh MD Work Phone: [facility] 02-23-2017 06:39-0500 BMI (Body Mass Index) 31.46 kg/m2 Amor Liu [facility] Work Phone: 02-23-2017 06:39-0500 Body Temperature 97.5 [degF] Amor Noe [facility] Work Phone: 02-23-2017 06:39-0500 BP Diastolic 84 mm[Hg] Amor Noe [facility] Work Phone: 02-23-2017 06:39-0500 BP Systolic 150 mm[Hg] Amor Noe [facility] Work Phone: 02-23-2017 06:39-0500 Height 182.88 cm Amor Noe [facility] Work Phone: 02-23-2017 06:39-0500 Pulse (Heart Rate) 80 /min Amor Liu [facility] Work Phone: 02-23-2017 06:39-0500 Respiratory Rate 18 /min Amor Noe [facility] Work Phone: 02-23-2017 06:39-0500 Weight 105.24 kg Amor Noe [facility] Work Phone: 04-08-2016 13:38-0500 Body Temperature 98.06 [degF] Amor Noe [facility] Work Phone: 04-08-2016 [id number] BSA (Body Surface Area) 2.29 m2 Amor Liu [facility] Work Phone: 04-08-2016 [id number] Height 182.88 cm Amor Noe [facility] Work Phone: 04-08-2016 [id number] Weight 107.27 kg Amor Bardalesur [facility] Work Phone: Encounters Encounter Date Encounter Type Care Provider Facility Start: 04-29-2023 End: 04-29-2023 ambulatory SANDY DEVRIES Facility:[facility] Start: 04-29-2023 End: 04-29-2023 ambulatory MILTON ESPINAL Facility:[facility] Start: 04-29-2023 End: 04-29-2023 ambulatory MILTON BERENICEShira ESPINAL Facility:[facility] Start: 03-31-2023 End: 03-31-2023 ambulatory MILTON ESPINAL Facility:[facility] Start: 01-22-2023 Follow-up encounter Ted Saleh MD Work Phone: [facility] Start: 01-22-2023 End: 01-22-2023 Patient encounter procedure Sandy Devries MD Work Phone: Cardiology Procedures Date Procedure Procedure Detail Performing Clinician Start: 01-22-2023 ICD CLINIC CHECK Ted Olivas Work Phone: Start: 10-26-2022 ICD CLINIC CHECK Ted Olivas Work Phone: Start: 03-02-2022 History of appendectomy History of appendectomy Sandy Devries MD Work Phone: Start: 11-11-2021 ICD CLINIC CHECK Ted Olivas Work Phone: Start: 08-12-2021 ICD CLINIC CHECK Ted Olivas Work Phone: Start: 07-16-2020 Lipid 1996 panel - Serum or Plasma Sandy Devries MD Work Phone: Start: 02-23-2017 End: 02-23-2017 *CBC with Differential Amor Liu Work Phone: Start: 10-05-2016 End: 10-06-2016 *CBC with Differential Amor Liu Work Phone: Start: 10-05-2016 End: 10-08-2016 IgE [Mass/volume] in Serum Amor Liu Work Phone: Start: 10-18-2015 End: 04-03-2016 Pulmonary Function Test - complete Amor Liu Work Phone: Start: 10-17-2015 End: 04-03-2016 Follow Up Appt 6 months Amor Liu Work Phone: Start: 07-16-2015 End: 04-03-2016 Echo tthrc r-t 2d w/wom-mode compl spec&colr d Amor Liu Work Phone: Start: 07-16-2015 End: 04-03-2016 Follow Up Appt 3 months Amor Liu Work Phone: Start: 07-16-2015 End: 07-17-2015 Natriuretic peptide B [Mass/volume] in Blood Amor Liu Work Phone: Start: 03-19-2014 End: 04-03-2016 Pulmonary Fuction Test - complete Amor Liu Work Phone: Start: 02-08-2014 End: 04-03-2016 Follow Up Appt 2 months Amor Liu Work Phone: Start: 12-09-2009 Nasim Go MD Work Phone: Plan of Treatment Date Care Activity Detail Author Start: 01-22-2026 Diabetes Screening Diabetes Screenin g [facility] Start: 12-30-2025 Diabetes Screening Diabetes Screenin g [facility] Start: 07-16-2025 Lipid 1996 panel - Serum or Plasma Lipid Screening [facility] Start: 07-16-2025 LIPID SCREEN LIPID SCREEN [facility] Start: 10-16-2024 DIABETES SCREEN DIABETES SCREEN [facility] Start: 10-16-2024 Diabetes Screening Diabetes Screenin g [facility] Start: 05-17-2024 DIABETES SCREEN DIABETES SCREEN [facility] Start: 11-12-2023 PROSTATE CANCER SCREENING DISCUSSION PROSTATE CANCER SCREENING DISCUSSION [facility] Start: 01-22-2023 End: 03-24-2023 CBC panel - Blood by Automated count CBC Lab Routine Chronic combined systolic and diastolic heart failure (HCC) Expected: 01/22/2023, Expires: 03/24/2023 [facility] Work Phone: Immunizations Immunization Date Immunization Notes Care Provider Fa cili 11-16-2018 pneumococcal polysaccharide vaccine, 23 valent Josh Go MD Work Phone: [facility] 11-16-2018 zoster vaccine recombinant Josh Go MD Work Phone: [facility] 01-18-2013 influenza virus vacc ine, unspecified formulation Josh Go MD Work Phone: [facility] Work Phone: 01-18-2013 tetanus toxoid, redu amadeo diphtheria toxoid, and acellular pertussis vaccine, adsorbed Josh Go MD Work Phone: [facility] Work Phone: 04-20-2002 tetanus and diphther ia toxoids, adsorbed, preservative free, for adult use (2 Lf of tetanus toxoid and 2 Lf of diphtheria toxoid) Josh Go MD Work Phone: [facility] Work Phone: 06-26-1991 tetanus and diphther ia toxoids, adsorbed, preservative free, for adult use (2 Lf of tetanus toxoid and 2 Lf of diphtheria toxoid) Josh Go MD Work Phone: [facility] Work Phone: Payers Date Payer Category Payer Medicare [employer] MEDICARE A ETNA MEDICARE PPO [id number] 2022-Present [phone] [address] [place] [address] PPO [id number] 2022 Medicare [id number] 2014 Unknown MMO MMO [employer] [id number] 2014-Present [phone] [address] [place] [address] PPO [id number] 2014 Unknown [id number] Social History Date Type Detail Facility Start: 01-31-2015 End: 12-30-2022 Tobacco smoking status NHIS Never smoked tobacco [facility] Start: 03-26-2021 End: 12-30-2022 Alcohol intake Ex-drinker (finding) [facility] Start: 1960 Sex Assigned At Male [facility] Start: 06-29-2021 End: 07-09-2021 Exposure to SARS-CoV-2 (event) Unable to assess [facility] Start: 08-02-2021 End: 10-16-2021 Exposure to SARS-CoV-2 (event) Not sure [facility] Start: 01-31-2015 End: 12-30-2022 Tobacco use and exposure Smokeless tobacco non-user [facility] Start: 08-12-2021 End: 12-30-2022 History of Social function [facility] Start: 08-12-2021 End: 12-30-2022 Tobacco use panel [facility] National Score (1-10 0), lower number is lower risk 57 [facility] Start: 05-08-2021 Gender identity Identifies as male gender (finding) [facility] Start: 05-08-2021 Sexual orientation Heterosexual (quinn jung) [facility] Clinical Notes 11-15-2018 to 04-29-2023 Patient InstructionsSandy Devries MD - 01/22/2023 10:40 AM EDTTelephone Encounter - Desi Herring RN - 01/18/2023 11:24 AM EDTTelephone Encounter - Dasia Rose LPN - 01/07/2023 3:12 PM EDT Note Date & Type Note Facility 04-29-2023 Note HNO ID: [id number] Author: TED SALEH MD Service: ? Author Type: Physician Type: Progress Notes Filed: 04/29/2023 11:01 Note Text: [facility] [place] [facility] Estrada Department of Cardiovascular Medicine SECTION OF CARDIAC PACING and ELECTROPHYSIOLOGY OUTPATIENT VISIT DATE April 29, 2023 OUTPATIENT VISIT TYPE ESTABLISHED PRIMARY CARE PHYSICIAN: Milton Espinal [address] [place] [address] CHIEF COMPLAINT: No palpitations. Progressive imbalance with ALS HISTORY OF PRESENT ILLNESS/NURSING INTAKE HISTORY: Mr. Momin is a 63 year old male who presents today for follow-up visit for device management. He has a past medical history of HTN, hypothyroidism, ALS (01/2021), CHF and nonischemic cardiomyopathy (EF 20% 2018) s/p S-ICD implant 08/23/2019. He follows with HF on medical therapy. His LVEF was 43% in 2021. He presents today for his annual follow up. Overall he reports doing well. He denies any issues with his device. Denies any treatments. His device check today shows a low burden of AFib. He is asymptomatic. This was previously noted on his device checks. Not currently on any anticoagulation. He notes mobility issues d/t his ALS and currently uses a walker at home. He does report two falls in the past six months without any injuries. He is scheduled for an Echo this afternoon. He continues to follow with HF and will see them next month. CHADS2-Vasc Score Breakdown 2 Total Score 1 History of CHF 1 History of hypertension PAST MEDICAL HISTORY Diagnosis Date A-fib (HCC) ALS (amyotrophic lateral sclerosis) (HCC) CHF (congestive heart failure) (HCC) Family history of internal cardiac defibrillator HTN (hypertension) Hypercholesteremia Hypothyroid Impaired fasting glucose Nonischemic cardiomyopathy (HCC) PAST SURGICAL HISTORY Procedure Laterality Date COLONOSCOPY FLX DX W/COLLJ SPEC WHEN PFRMD 12/09/2009 repeat due 2019 IMPLANTABLE CARDIAC DEFIB ICD PAST SURGICAL HISTORY OF 10/2008 right ear -- implant, Dr. Roth PAST SURGICAL HISTORY OF left ear -- stainless implant PAST SURGICAL HISTORY OF 17 appy PAST SURGICAL HISTORY OF age 9 hernia PAST SURGICAL HISTORY OF varicouse veins stripped PAST SURGICAL HISTORY OF 11/19 mole removed from back SOCIAL HISTORY Social History Tobacco Use Smoking status: Never Smokeless tobacco: Never Vaping Use Vaping Use: Never used Substance Use Topics Alcohol use: Not Currently Drug use: No FAMILY HISTORY Problem Relation Age of Onset Arthritis Mother lupus; in her 50's Cancer Sister lung Diabetes Sister Diabetes Brother Coronary Artery Disease Other sister with lupus, of ? [place] age 35 Colon Cancer No Family History Prostate Cancer No Family History ALLERGIES: ALLERGIES Allergen Reactions Sulfa (Sulfonamide * Hives Trimethoprim Unknown MEDICATIONS: riluzole (RILUTEK) 50 mg tablet Take 1 tablet by mouth every 12 hours. empagliflozin (JARDIANCE) 10 mg tablet Take 1 tablet by mouth daily with breakfast. spironolactone (ALDACTONE) 25 mg tablet Take 1 tablet by mouth once daily. sacubitril-valsartan (ENTRESTO) 97-103 mg tablet Take 1 tablet by mouth twice daily. carvedilol (COREG) 6.25 mg tablet Take 1 tablet by mouth twice daily with meals. atorvastatin (LIPITOR) 10 mg tablet Take 10 mg by mouth once daily. EUTHYROX 112 mcg tablet Take 112 mcg by mouth once daily. diphenhydrAMINE (BENADRYL) 25 mg tablet Take 1 tablet by mouth as needed. Monthly takes prior to Nucala injection mepolizumab (NUCALA) 100 mg injection Inject 100 mg subcutaneously once every month. albuterol HFA (PROAIR HFA) 90 mcg/actuation inhaler Inhale 2 Puffs as instructed every 4 hours as needed for wheezing/shortness of breath. coenzyme Q10 (CO Q-10) 100 mg cap capsule Take 100 mg by mouth once daily. fluticasone-vilanterol (BREO ELLIPTA) 200-25 mcg/dose inhaler Inhale 1 Inhalation as instructed once daily. albuterol 2.5 mg /3 mL (0.083 %) nebulizer solution Use 3 mL via nebulizer every 4 hours as needed for Wheezing/Shortness of Breath. Use over 5-15minutes. furosemide (LASIX) 20 mg tablet Take 1 tablet by mouth once daily as needed. Sarita R Eppich, RN PHYSICAL EXAMINATION: BP 120/78 Pulse 61 Ht 182.9 cm (6') Wt 106.6 kg (235 lb) BMI 31.87 kg/m? Physical Exam Constitutional: Appearance: He is well-developed. Neck: Vascular: No JVD. Cardiovascular: Rate and Rhythm: Normal rate and regular rhythm. Comments: S-ICD incisions healthy Pulmonary: Effort: Pulmonary effort is normal. Breath sounds: Normal breath sounds. Abdominal: General: Bowel sounds are normal. Palpations: Abdomen is soft. Musculoskeletal: General: Normal range of motion. Cervical back: Normal range of motion. Skin: General: Skin is warm and dry. Neurological: Mental Status: He is aler (more content not included)... [facility] 03-31-2023 Note HNO ID: [id number] Author: Josh Go MD Service: ? Author Type: Physician Type: Progress Notes Filed: 03/31/2023 4:10 PM Note Text: VIRTUAL VISIT PROGRESS NOTE This is a virtual visit. It required patient-provider interaction for the medical decision making as documented below. The patient consents to a virtual visit. I have communicated my name and active licensure. The patient's identity and physical location were verified at the time of this visit. Either the patient or their legal retail field representative has been informed of the risks and benefits of -- and alternatives to -- treatment through a remote evaluation and consents to proceed with the evaluation remotely. CC: ALS fu S: Still using a walker Balance is off. Fall one month ago; hurt his rib Continues riluzole. He did not end up getting PT; he was worried about the cost. No PBA symptoms No sialorrhea No breathing issues; has been taking asthma injections for a long time. No swallowing issues. No weight loss. Speech is ok. Swallowing is fine; weight is maintained. He has walk in shower with bars; sleeps on main floor. Medications: Current Outpatient Medications on File Prior to Visit Medication Sig empagliflozin (JARDIANCE) 10 mg tablet Take 1 tablet by mouth daily with breakfast. riluzole (RILUTEK) 50 mg tablet Take 1 tablet by mouth every 12 hours. spironolactone (ALDACTONE) 25 mg tablet Take 1 tablet by mouth once daily. sacubitril-valsartan (ENTRESTO) 97-103 mg tablet Take 1 tablet by mouth twice daily. carvedilol (COREG) 6.25 mg tablet Take 1 tablet by mouth twice daily with meals. atorvastatin (LIPITOR) 10 mg tablet Take 10 mg by mouth once daily. EUTHYROX 112 mcg tablet Take 112 mcg by mouth once daily. furosemide (LASIX) 20 mg tablet Take 1 tablet by mouth once daily as needed. diphenhydrAMINE (BENADRYL) 25 mg tablet Take 1 tablet by mouth as needed. Monthly takes prior to Nucala injection mepolizumab (NUCALA) 100 mg injection Inject 100 mg subcutaneously once every month. albuterol HFA (PROAIR HFA) 90 mcg/actuation inhaler Inhale 2 Puffs as instructed every 4 hours as needed for Wheezing/Shortness of Breath. (Patient not taking: Reported on 12/30/2022) coenzyme Q10 (CO Q-10) 100 mg cap capsule Take 100 mg by mouth once daily. fluticasone-vilanterol (BREO ELLIPTA) 200-25 mcg/dose inhaler Inhale 1 Inhalation as instructed once daily. albuterol 2.5 mg /3 mL (0.083 %) nebulizer solution Use 3 mL via nebulizer every 4 hours as needed for Wheezing/Shortness of Breath. Use over 5-15minutes. (Patient not taking: Reported on 12/30/2022) No current facility-administered medications on file prior to visit. Assessment/Plan: motor neuron disease (ALS); symptom onset late 2019 LUE/LLE > RUE weakness; no current bulbar symptoms, walking w/ walker Continue riluzole; cmp 02/08 ok; Last visit we discussed Relyvrio. He decided not to pursue. PT referral last visit.he decided not pursue due to cost concerns. No PBA symptoms; No sialorrhea; no bulbar symptoms. He has a Left AFO; stopped wearing it d/t trouble tying it. No current breathing issues; has been taking asthma injections for a long time and inhaler. No swallowing issues nor weight loss. RTC 3 months. [facility] 01-22-2023 Note HNO ID: [id number] Author: Sandy Devries MD Service: ? Author Type: Physician Type: Progress Notes Filed: 01/22/2023 11:36 AM Note Text: [facility] Prisca Estrada Department of Cardiovascular Medicine [facility] for Heart Failure Treatment and Recovery Section of Heart Failure and Transplantation Medicine ESTABLISHED PATIENT PATIENT Paula Momin [address] [place] [address] [facility] [place] [facility] PROVIDER Milton Espinal MD [address] [place] [address] CHIEF COMPLAINT Follow Up HISTORY OF PRESENT ILLNESS Had the pleasure of seeing Mr. Momin today in our heart failure clinic. He is a very pleasant 62-year-old male with past medical history of chronic systolic heart failure due to nonischemic cardiomyopathy, hypertension, hypercholesterolemia, and ALS. He is presenting for follow-up. In general, he endorses NYHA class I/II mild exertional shortness of breath, not associated with orthopnea, PND, lower extreme edema, presyncope, syncope, chest pain, or palpitations. He is compliant on medications and low-salt diet. TTE with improving LVEF 35% range. REVIEW OF SYSTEMS CONSTITUTIONAL: No unintentional weight loss, malaise, or frequent fevers. + chronic fatigue. EYES: No acute vision symptoms. EARS, NOSE, MOUTH, THROAT: No acute auditive, nasal, oral, or pharyngeal symptoms. CARDIOVASCULAR: As per History of Present Illness. RESPIRATORY: No cough, hemoptysis, or wheezing. No dyspnea at rest. GASTROINTESTINAL: No vomiting or diarrhea. No abdominal pain. No melena or hematemesis. GENITOURINARY: No acute urinary frequency, or incontinence. No renal colic symptoms. MUSCULOSKELETAL: No acute joint pain or swelling. No acute severe back or muscle pain. INTEGUMENTARY: No new skin lesions, rash, or itching. NEUROLOGICAL: No major or recurrent headaches or seizures. + Muscle twitching and weakness. PSYCHIATRIC: No major mood disorder, or recent major psychosocial stressor. ENDOCRINE: No cold or heat intolerance, polyuria, polydipsia, or goiter. HEMATOLOGIC/LYMPHATIC: No major bleeding episode. No swollen nodes. ALLERGIC/IMMUNOLOGIC: No recent major allergic reaction or itching. CURRENT MEDICATIONS - empagliflozin (JARDIANCE) 10 mg tablet Take 1 tablet by mouth daily with breakfast. - riluzole (RILUTEK) 50 mg tablet Take 1 tablet by mouth every 12 hours. - spironolactone (ALDACTONE) 25 mg tablet Take 1 tablet by mouth once daily. - sacubitril-valsartan (ENTRESTO) 97-103 mg tablet Take 1 tablet by mouth twice daily. - carvedilol (COREG) 6.25 mg tablet Take 1 tablet by mouth twice daily with meals. - atorvastatin (LIPITOR) 10 mg tablet Take 10 mg by mouth once daily. - EUTHYROX 112 mcg tablet Take 112 mcg by mouth once daily. - furosemide (LASIX) 20 mg tablet Take 1 tablet by mouth once daily as needed. - diphenhydrAMINE (BENADRYL) 25 mg tablet Take 1 tablet by mouth as needed. Monthly takes prior to Nucala injection - mepolizumab (NUCALA) 100 mg injection Inject 100 mg subcutaneously once every month. - coenzyme Q10 (CO Q-10) 100 mg cap capsule Take 100 mg by mouth once daily. - albuterol HFA (PROAIR HFA) 90 mcg/actuation inhaler Inhale 2 Puffs as instructed every 4 hours as needed for Wheezing/Shortness of Breath. (Patient not taking: Reported on 12/30/2022) - fluticasone-vilanterol (BREO ELLIPTA) 200-25 mcg/dose inhaler Inhale 1 Inhalation as instructed once daily. - albuterol 2.5 mg /3 mL (0.083 %) nebulizer solution Use 3 mL via nebulizer every 4 hours as needed for Wheezing/Shortness of Breath. Use over 5-15minutes. (Patient not taking: Reported on 12/30/2022) PAST MEDICAL HISTORY PAST MEDICAL HISTORY Diagnosis Date - ALS (amyotrophic lateral sclerosis) (HCC) - CHF (congestive heart failure) (HCC) - Family history of internal cardiac defibrillator - HTN (hypertension) - Hypercholesteremia - Hypothyroid - Impaired fasting glucose - Nonischemic cardiomyopathy (HCC) PAST SURGICAL HISTORY PAST SURGICAL HISTORY Procedure Laterality Date - COLONOSCOPY FLX DX W/COLLJ SPEC WHEN PFRMD 12/09/2009 repeat due 2019 - IMPLANTABLE CARDIAC DEFIB ICD - PAST SURGICAL HISTORY OF 10/2008 right ear -- implant, Dr. Roth - PAST SURGICAL HISTORY OF left ear -- stainless implant - PAST SURGICAL HISTORY OF 17 appy - PAST SURGICAL HISTORY OF age 9 hernia - PAST SURGICAL HISTORY OF varicouse veins stripped - PAST SURGICAL HISTORY OF 11/19 mole removed from back SOCIAL HISTORY Social History Tobacco Use - Smoking status: Never - Smokeless tobacco: Never Vaping Use - Vaping Use: Never used Substance Use Topics - Alcohol use: Not Currently - Drug use: No FAMILY HISTORY FAMILY HISTORY Problem Relation Age of Onset - Cancer Sister lung - Diabetes Sister - C (more content not included)... [facility] 01-22-2023 Instructions Sandy Devries MD - 01/22/2023 11:06 AM EDT - Schedule echo. - Follow up with us in HF clinic in 6 months - virtual. documented in this encounter [facility] 01-22-2023 History of Present illness Narrative Images from the original note were not included. [facility] Prisca Estrada Department of Cardiovascular Medicine [facility] Heart Failure Treatment and Recovery Section of Heart Failure and Transplantation Medicine ESTABLISHED PATIENT PATIENT Paula Momin [address] [facility] [address] [facility] [place] [facility] PROVIDER Milton Espinal MD [address] [place] [address] CHIEF COMPLAINT Follow Up HISTORY OF PRESENT ILLNESS Had the pleasure of seeing Mr. Momin today in our heart failure clinic. He is a very pleasant 62-year-old male with past medical history of chronic systolic heart failure due to nonischemic cardiomyopathy, hypertension, hypercholesterolemia, and ALS. He is presenting for follow-up. In general, he endorses NYHA class I/II mild exertional shortness of breath, not associated with orthopnea, PND, lower extreme edema, presyncope, syncope, chest pain, or palpitations. He is compliant on medications and low-salt diet. TTE with improving LVEF 35% range. REVIEW OF SYSTEMS CONSTITUTIONAL: No unintentional weight loss, malaise, or frequent fevers. + chronic fatigue. EYES: No acute vision symptoms. EARS, NOSE, MOUTH, THROAT: No acute auditive, nasal, oral, or pharyngeal symptoms. CARDIOVASCULAR: As per History of Present Illness. RESPIRATORY: No cough, hemoptysis, or wheezing. No dyspnea at rest. GASTROINTESTINAL: No vomiting or diarrhea. No abdominal pain. No melena or hematemesis. GENITOURINARY: No acute urinary frequency, or incontinence. No renal colic symptoms. MUSCULOSKELETAL: No acute joint pain or swelling. No acute severe back or muscle pain. INTEGUMENTARY: No new skin lesions, rash, or itching. NEUROLOGICAL: No major or recurrent headaches or seizures. + Muscle twitching and weakness. PSYCHIATRIC: No major mood disorder, or recent major psychosocial stressor. ENDOCRINE: No cold or heat intolerance, polyuria, polydipsia, or goiter. HEMATOLOGIC/LYMPHATIC: No major bleeding episode. No swollen nodes. ALLERGIC/IMMUNOLOGIC: No recent major allergic reaction or itching. CURRENT MEDICATIONS empagliflozin (JARDIANCE) 10 mg tablet Take 1 tablet by mouth daily with breakfast. riluzole (RILUTEK) 50 mg tablet Take 1 tablet by mouth every 12 hours. spironolactone (ALDACTONE) 25 mg tablet Take 1 tablet by mouth once daily. sacubitril-valsartan (ENTRESTO) 97-103 mg tablet Take 1 tablet by mouth twice daily. carvedilol (COREG) 6.25 mg tablet Take 1 tablet by mouth twice daily with meals. atorvastatin (LIPITOR) 10 mg tablet Take 10 mg by mouth once daily. EUTHYROX 112 mcg tablet Take 112 mcg by mouth once daily. furosemide (LASIX) 20 mg tablet Take 1 tablet by mouth once daily as needed. diphenhydrAMINE (BENADRYL) 25 mg tablet Take 1 tablet by mouth as needed. Monthly takes prior to Nucala injection mepolizumab (NUCALA) 100 mg injection Inject 100 mg subcutaneously once every month. coenzyme Q10 (CO Q-10) 100 mg cap capsule Take 100 mg by mouth once daily. albuterol HFA (PROAIR HFA) 90 mcg/actuation inhaler Inhale 2 Puffs as instructed every 4 hours as needed for Wheezing/Shortness of Breath. (Patient not taking: Reported on 12/30/2022) fluticasone-vilanterol (BREO ELLIPTA) 200-25 mcg/dose inhaler Inhale 1 Inhalation as instructed once daily. albuterol 2.5 mg /3 mL (0.083 %) nebulizer solution Use 3 mL via nebulizer every 4 hours as needed for Wheezing/Shortness of Breath. Use over 5-15minutes. (Patient not taking: Reported on 12/30/2022) PAST MEDICAL HISTORY PAST MEDICAL HISTORY Diagnosis Date ALS (amyotrophic lateral sclerosis) (HCC) CHF (congestive heart failure) (HCC) Family history of internal cardiac defibrillator HTN (hypertension) Hypercholesteremia Hypothyroid Impaired fasting glucose Nonischemic cardiomyopathy (HCC) PAST SURGICAL HISTORY PAST SURGICAL HISTORY Procedure Laterality Date COLONOSCOPY FLX DX W/COLLJ SPEC WHEN PFRMD 12/09/2009 repeat due 2020 IMPLANTABLE CARDIAC DEFIB ICD PAST SURGICAL HISTORY OF 10/2008 right ear -- implant, Dr. Roth PAST SURGICAL HISTORY OF left ear -- stainless implant PAST SURGICAL HISTORY OF 17 appy PAST SURGICAL HISTORY OF age 9 hernia PAST SURGICAL HISTORY OF varicouse veins stripped PAST SURGICAL HISTORY OF 11/19 mole removed from back SOCIAL HISTORY Social History Tobacco Use Smoking status: Never Smokeless tobacco: Never Vaping Use Vaping Use: Never used Substance Use Topics Alcohol use: Not Currently Drug use: No FAMILY HISTORY FAMILY HISTORY Problem Relation Age of Onset Cancer Sister lung Diabetes Sister Coronary Artery Disease Other sister with lupus, of ? [place] age 35 Arthritis Mother lupus; in her 50's Diabetes Brother Colon Cancer No Family History Prostate Cancer No Family History ALLERGIES ALLERGIES Allergen Reactions Sulfa (Sulfonamide * Hives Trimethoprim Unknown PHYSICAL EXAMINATION BP 135/87 (BP Site: Left Arm, BP Position: Sitting, BP Cuff Size: Regular Adult) Pulse 65 Resp 15 Ht 182.9 cm (6') Wt 108 kg (238 lb) SpO2 94% BMI 32.28 kg/m CONSTITUTIONAL: Well appearing, in no acute distress. EYES: Clear conjunctivae. Extraocular movements are grossly intact. EARS, NOSE, MOUTH, THROAT: Deferred. NECK: Trachea midline. No lymphadenopathy. Thyroid not enlarged. CARDIOVASCULAR: Regular and normal rate. Normal S1 and S2; no S3 or S4. No murmurs. Peripheral pulses are normal throughout. JVP is normal. No lower extremity edema. RESPIRATORY/LUNGS: Lungs clear to auscultation; no significant wheezing, rhonchi, or rales. ABDOMEN: Soft, non-tender, and non-distended. Bowel sounds are normal. MUSCULOSKELETAL: No gross joint swelling, major deformity, or tenderness. No digital clubbing. Range of motion is grossly normal throughout. INTEGUMENTARY/SKIN: Color, texture, and turgor are normal; no rashes or lesions. No jaundice. NEUROLOGICAL: Gait is grossly normal. Motor/strength grossly intact. PSYCHIATRIC: Alert and oriented to person, place, and time; lucid. Normal affect and insight. Memory is grossly intact. PERTINENT DIAGNOSTIC DATA COMPLETE BLOOD COUNT WBC (k/uL) Date Value 01/22/2023 7.43 08/12/2021 8.15 12/30/2020 8.92 07/16/2020 6.28 12/26/2019 7.97 RBC (m/uL) Date Value 01/22/2023 5.52 08/12/2021 5.30 12/30/2020 5.24 07/16/2020 5.31 12/26/2019 5.03 Hemoglobin (g/dL) Date Value 01/22/2023 16.6 10/16/2021 17.0 08/12/2021 16.0 12/30/2020 16.1 07/16/2020 15.9 12/26/2019 15.6 Hematocrit (%) Date Value 01/22/2023 50.8 10/16/2021 52.0 08/12/2021 50.3 12/30/2020 48.7 07/16/2020 48.3 12/26/2019 46.5 MCV (fL) Date Value 01/22/2023 92.0 08/12/2021 94.9 12/30/2020 92.9 07/16/2020 91.0 12/26/2019 92.4 Platelet Count (k/uL) Date Value 01/22/2023 203 08/12/2021 210 12/30/2020 205 07/16/2020 223 12/26/2019 204 BASIC METABOLIC PANEL Sodium (mmol/L) Date Value 12/30/2022 139 10/16/2021 139 05/17/2021 139 01/20/2021 140 12/30/2020 140 Potassium (mmol/L) Date Value 12/30/2022 4.5 10/16/2021 5.3 05/17/2021 4.3 01/20/2021 4.3 12/30/2020 4.8 Chloride (mmol/L) Date Value 12/30/2022 102 10/16/2021 100 05/17/2021 103 01/20/2021 103 12/30/2020 103 CO2 (mmol/L) Date Value 12/30/2022 23 10/16/2021 28 05/17/2021 27 01/20/2021 27 12/30/2020 27 BUN (mg/dL) Date Value 12/30/2022 20 10/16/2021 17 05/17/2021 21 01/20/2021 21 12/30/2020 17 Creatinine (mg/dL) Date Value 12/30/2022 0.78 10/16/2021 1.07 05/17/2021 1.09 01/20/2021 1.09 12/30/2020 1.01 Calcium (mg/dL) Date Value 05/17/2021 9.4 01/20/2021 9.3 12/30/2020 9.7 Calcium, Total (mg/dL) Date Value 12/30/2022 9.5 10/16/2021 10.1 Magnesium (mg/dL) Date Value 07/04/2019 2.2 03/15/2019 2.1 11/11/2018 2.2 Glucose (mg/dL) Date Value 12/30/2022 131 10/16/2021 119 05/17/2021 164 01/20/2021 116 12/30/2020 111 Estimated Creatinine Clearance: 123.1 mL/min (based on SCr of 0.78 mg/dL). LIVER FUNCTION PANEL Protein, Total (g/dL) Date Value 12/30/2022 7.4 10/16/2021 7.8 05/17/2021 7.2 03/26/2021 7.0 12/30/2020 7.3 Albumin (g/dL) Date Value 12/30/2022 4.7 10/16/2021 5.0 05/17/2021 4.7 12/30/2020 4.4 07/16/2020 4.5 Alkaline Phosphatase (U/L) Date Value 12/30/2022 95 10/16/2021 75 05/17/2021 77 12/30/2020 72 07/16/2020 72 Bilirubin, Total (mg/dL) Date Value 12/30/2022 0.7 10/16/2021 1.0 05/17/2021 0.6 12/30/2020 0.7 07/16/2020 0.8 AST (U/L) Date Value 12/30/2022 28 10/16/2021 34 05/17/2021 23 12/30/2020 21 07/16/2020 27 ALT (U/L) Date Value 12/30/2022 38 10/16/2021 41 05/17/2021 33 12/30/2020 32 07/16/2020 38 PT INR (no units) Date Value 11/11/2018 1.2 01/31/2015 0.9 LIPID PANEL Cholesterol, Total (mg/dL) Date Value 11/11/2018 151 10/12/2012 121 06/20/2012 135 Total Cholesterol, Nonfasting (mg/dL) Date Value 07/16/2020 193 Triglyceride (mg/dL) Date Value 11/11/2018 157 10/12/2012 241 06/20/2012 444 Triglycerides, Nonfasting (mg/dL) Date Value 07/16/2020 292 HDL Cholesterol (mg/dL) Date Value 11/11/2018 40 10/12/2012 31 06/20/2012 30 HDL Cholesterol, Nonfasting (mg/dL) Date Value 07/16/2020 30 LDL Cholesterol (mg/dL) Date Value 11/11/2018 80 10/12/2012 42 06/20/2012 Unable to calculate due to increased Triglycerides. See LDL-Chol, Direct. LDL Cholesterol, Nonfasting (mg/dL) Date Value 07/16/2020 105 CARDIAC BIOMARKERS NT Pro BNP (pg/mL) Date Value 10/16/2021 54 12/30/2020 98 07/16/2020 82 12/26/2019 157 Uric Acid (mg/dL) Date Value 11/11/2018 6.8 OTHER BIOMARKERS TSH (uU/mL) Date Value 11/11/2018 0.119 01/07/2013 1.620 10/12/2012 3.250 Hemoglobin A1C (%) Date Value 11/11/2018 6.4 01/07/2013 6.1 10/12/2012 6.2 Vitamin D 25 Hydroxy (ng/mL) Date Value 11/11/2018 24.1 Uric Acid (mg/dL) Date Value 11/11/2018 6.8 ABO/RH(D) (no units) Date Value 08/23/2019 AB POSTIVE 11/11/2018 AB POSTIVE 11/11/2018 AB POSTIVE Antibody Screen (no units) Date Value 08/23/2019 NEG 11/11/2018 NEG ECHOCARDIOGRAM LV Ejection Fraction (%) Date Value 10/16/2021 43 07/16/2020 36 07/04/2019 24 LV Diastolic Diameter (cm) Date Value 11/08/2006 6.2 LV Systolic Diameter (cm) Date Value 11/08/2006 4.7 ICD check 11/08 SUBQ ICD EVALUATION: PRESENTS FOR: Annual device check RHYTHM: Sinus Rhythm BATTERY STATUS: 61% remaining. BATTERY ALERT: Patient aware of battery alert, tone demonstrated, and aware need for follow up. LEAD ELECTRODE: ok. System impedance 100 ohms. Sensing well in primary vector. SMART PASS: On ARRHYTHMIAS: There have not been any ventricular detections or therapy delivered since the last evaluation. There have been 5 AF detections with ECG's showing irregular V-V rhythm, p waves not discernible. Total time 1%. Anticoagulation listed: None, patient with ALS and history of falls. Most recently, patient fell on 10/15/22 around the same time as AF event. Patient reports he tripped over his walker. He does report occasional light headed/fuzziness, unsure if related to AF. FOLLOW UP: Patient's insurance has changed, he will check to see if they will cover remote monitoring and let us know. Patient to call for OPD with Dr. Saleh. Kaylie Motley RN IMPRESSION AND RECOMMENDATIONS 1. Chronic systolic heart failure: Due to nonischemic cardiomyopathy. - NYHA class I/II, ACC/AHA stage C. - Compensated and euvolemic. - Continue current medications. No room for uptitration. Might not be able to afford SGLT2i anymore. 2. Nonischemic cardiomyopathy: - Genetics. - s/p SQ ICD. 3. Hypertension: Controlled. - Continue current medications. 4. Hyperlipidemia: - Diet. - statin. 5. Obesity: regular exercise and weight loss. 6. Atrial fibrillation: on ICD check. - Following with EP for anticoagulation needs. No chronic anticoagulation. I have discussed with the patient and family and caregivers when present, in simple terms, the likely etiologies of the patient's condition, its pathophysiology, prognosis, current status, diagnostic modalities, and both basic and advanced therapeutic options. In addition, we discussed guideline-recommended lifestyle modifications such as diet, weight management, exercise, and abstinence of tobacco, alcohol, and illicit substances. When appropriate, these were also documented in the Patient Instructions section of the After Visit Summary, which was printed and handed to the patient. The patient was also provided pertinent healthcare educational booklets available in our clinic. I have personally performed a [id number] diagnostic evaluation on this patient, including anamnesis and physical examination, review of pertinent available medical records, and personal visualization and interpretation of pertinent available diagnostic data. The patient s condition required a significant and separately identifiable evaluation and management service, above and beyond the usual pre- and post-procedure/operative care associated with any procedure or service performed. Greater than 50% of the time of this visit was spent in counseling and/or coordinating care for the patient, the nature of which is noted above. Sandy Devries MD, [facility] Staff [employer] Workflow Consultant, Heart Failure and Transplantation Medicine [facility] Heart Failure Treatment and Recovery [facility] Department of Cardiovascular Medicine [facility] Heart, Vascular, and Thoracic [place] [address] Tel: Fax: [email or web address] This note was partially created using voice recognition software and is inherently subject to errors including those of syntax and sound-alike substitutions which may escape proofreading. In such instances, original meaning may be extrapolated by contextual derivation. Medical Decision Making: Problems: Moderate: 2+ stable chronic illnesses Data: Unique test result(s) reviewed: 2 Unique test(s) ordered: 1 Risk: Low: Low risk from testing/treatment Medical Decision Making Level: 4 - Moderate documented in this encounter [facility] 01-18-2023 Miscellaneous Notes Returned call, patient will come in for software update of ICD per electrical maintenance technician's advisory on 01/22/23 documented in this encounter [facility] 01-07-2023 Miscellaneous Notes This encounter opened in Error. documented in this encounter [facility] 12-30-2022 Note HNO ID: [id number] Author: Josh Go MD Service: ? Author Type: Physician Type: Progress Notes Filed: 12/30/2022 5:02 PM Note Text: CC: ALS fu last seen 04/2021 S: Home address [address] [place] [id number] Using a walker Balance is off. Some falls backwards. Had a fall june in [place], needed stitches. He switched to a walker after that fall. Continues riluzole. No PBA symptoms No sialorrhea No breathing issues; has been taking asthma injections for a long time. No swallowing issues. No weight loss. Speech is ok. Dry mouth at night. Sleeps w/ his mouth open. Medications: Current Outpatient Medications Medication Sig Dispense Refill empagliflozin (JARDIANCE) 10 mg tablet Take 1 tablet by mouth daily with breakfast. 90 tablet 3 spironolactone (ALDACTONE) 25 mg tablet Take 1 tablet by mouth once daily. 90 tablet 3 sacubitril-valsartan (ENTRESTO) 97-103 mg tablet Take 1 tablet by mouth twice daily. 180 tablet 3 carvedilol (COREG) 6.25 mg tablet Take 1 tablet by mouth twice daily with meals. 180 tablet 3 riluzole (RILUTEK) 50 mg tablet Take 1 tablet by mouth every 12 hours. 180 tablet 3 atorvastatin (LIPITOR) 10 mg tablet Take 10 mg by mouth once daily. EUTHYROX 112 mcg tablet Take 112 mcg by mouth once daily. furosemide (LASIX) 20 mg tablet Take 1 tablet by mouth once daily as needed. diphenhydrAMINE (BENADRYL) 25 mg tablet Take 1 tablet by mouth as needed. Monthly takes prior to Nucala injection mepolizumab (NUCALA) 100 mg injection Inject 100 mg subcutaneously once every month. albuterol HFA (PROAIR HFA) 90 mcg/actuation inhaler Inhale 2 Puffs as instructed every 4 hours as needed for Wheezing/Shortness of Breath. coenzyme Q10 (CO Q-10) 100 mg cap capsule Take 100 mg by mouth once daily. fluticasone-vilanterol (BREO ELLIPTA) 200-25 mcg/dose inhaler Inhale 1 Inhalation as instructed once daily. albuterol 2.5 mg /3 mL (0.083 %) nebulizer solution Use 3 mL via nebulizer every 4 hours as needed for Wheezing/Shortness of Breath. Use over 5-15minutes. 30 Vial 0 No current facility-administered medications for this visit. MSK: atrophy LUE muscles proximal and hand intrinsics Deltoid Triceps Biceps Wrist ext. Hand intrinsic Hip flexion Knee flexion Knee Ext. Bhargav. Flex Pl. flex Right 4 4 4 4 4 5 5 5 5 5 Left 3 4- 4- 4 4- 4 4 5 4 4 Reflexes: R L Biceps 3 3 Triceps 3 3 Brachioradialis 3 3 Patellar 3 3 Achilles 3 3 Crossed adductors bilaterally. Studies: EMG 04/07/21 Electrodiagnostic examination of the left upper extremity, left lower extremity, and thoracic paraspinal musclesdemonstrates: On nerve conduction studies, sensory responses are normal throughout. Motor studies demonstrate reduced amplitude in the abductor pollicis brevis and first dorsal interosseous muscles. On needle EMG, active denervation is not seen in the lower extremity, and is present in 3 out of 6 tested muscles inthe upper extremity. Fasciculation potentials are seen in 4 out of 6 muscles in the upper extremity, and in 2 out of 6 muscles in the lowerextremity. Fasciculation potentials, but no active denervation, are seen in the thoracic paraspinal muscles Chronic reinnervation changes are seen in all tested upper extremity myotomes (C5-T1), thoracic paraspinalmuscles, and the L3-L5 myotomes in the lower extremity. These findings are consistent with a diffuse evolving process affecting the lower motor neuron, such as motorneuron disease. Previous lab studies reviewed B12 215, TSH 0.08 (low). HTLV and 1 and 2 antibodies negative, and a negative, lead level, mercury level now normal. Aldolase normal, copper normal, kappa and lambda light chain levels normal. Thiamine level normal, myoglobin level normal. CPK normal. Folic acid normal. Free T4 1.76 (mildly high). CMP normal. CBC data reviewed. Imaging reports (no images available). CT cervical spine report reviewed no significant canal stenosis. Mild degree of disc space narrowing at C4/C5. No significant neuroforaminal stenosis. CT of the brain unremarkable. b12 supplement 1000 mcg daily recommended. (low normal past results) Local labs: copper 68 (normal 70), all normal: ck, spep, zo, lyme, folate. Last cmp from 2021; Assessment/Plan: motor neuron disease (ALS); symptom onset late 2019 LUE/LLE > RUE weakness; no current bulbar symptoms, walking w/ walker Continue riluzole; check cmp; ordered today. We discussed a new ALS medication called Relyvrio, he will read up on the medication, let me know if he would like to try it. Referral to PT placed today. No PBA symptoms; No sialorrhea; no bulbar symptoms. He has a Left AFO; stopped wearing it d/t trouble tying it. No current breathing issues; has been taking asthma injections for a long time and inhaler. No swallowing issues nor weight loss. RTC 3 months. 40 minutes direct patient care provided on the date of service. [facility] 12-30-2022 Instructions Josh Go MD - 12/30/2022 4:50 PM EDT We discussed a new ALS medication called Relyvrio, you can read up on the medication, let me know if you would like to try it. documented in this encounter [facility] 12-30-2022 History of Present illness Narrative CC: ALS fu last seen 04/2021 S: [address] [facility] [id number] Using a walker Balance is off. Some falls backwards. Had a fall june in [place], needed stitches. He switched to a walker after that fall. Continues riluzole. No PBA symptoms No sialorrhea No breathing issues; has been taking asthma injections for a long time. No swallowing issues. No weight loss. Speech is ok. Dry mouth at night. Sleeps w/ his mouth open. Medications: Current Outpatient Medications Medication Sig Dispense Refill empagliflozin (JARDIANCE) 10 mg tablet Take 1 tablet by mouth daily with breakfast. 90 tablet 3 spironolactone (ALDACTONE) 25 mg tablet Take 1 tablet by mouth once daily. 90 tablet 3 sacubitril-valsartan (ENTRESTO) 97-103 mg tablet Take 1 tablet by mouth twice daily. 180 tablet 3 carvedilol (COREG) 6.25 mg tablet Take 1 tablet by mouth twice daily with meals. 180 tablet 3 riluzole (RILUTEK) 50 mg tablet Take 1 tablet by mouth every 12 hours. 180 tablet 3 atorvastatin (LIPITOR) 10 mg tablet Take 10 mg by mouth once daily. EUTHYROX 112 mcg tablet Take 112 mcg by mouth once daily. furosemide (LASIX) 20 mg tablet Take 1 tablet by mouth once daily as needed. diphenhydrAMINE (BENADRYL) 25 mg tablet Take 1 tablet by mouth as needed. Monthly takes prior to Nucala injection mepolizumab (NUCALA) 100 mg injection Inject 100 mg subcutaneously once every month. albuterol HFA (PROAIR HFA) 90 mcg/actuation inhaler Inhale 2 Puffs as instructed every 4 hours as needed for Wheezing/Shortness of Breath. coenzyme Q10 (CO Q-10) 100 mg cap capsule Take 100 mg by mouth once daily. fluticasone-vilanterol (BREO ELLIPTA) 200-25 mcg/dose inhaler Inhale 1 Inhalation as instructed once daily. albuterol 2.5 mg /3 mL (0.083 %) nebulizer solution Use 3 mL via nebulizer every 4 hours as needed for Wheezing/Shortness of Breath. Use over 5-15minutes. 30 Vial 0 No current facility-administered medications for this visit. MSK: atrophy LUE muscles proximal and hand intrinsics Deltoid Triceps Biceps Wrist ext. Hand intrinsic Hip flexion Knee flexion Knee Ext. Bhargav. Flex Pl. flex Right 4 4 4 4 4 5 5 5 5 5 Left 3 4- 4- 4 4- 4 4 5 4 4 Reflexes: R L Biceps 3 3 Triceps 3 3 Brachioradialis 3 3 Patellar 3 3 Achilles 3 3 Crossed adductors bilaterally. Studies: EMG 04/07/21 Electrodiagnostic examination of the left upper extremity, left lower extremity, and thoracic paraspinal musclesdemonstrates: On nerve conduction studies, sensory responses are normal throughout. Motor studies demonstrate reduced amplitude in the abductor pollicis brevis and first dorsal interosseous muscles. On needle EMG, active denervation is not seen in the lower extremity, and is present in 3 out of 6 tested muscles inthe upper extremity. Fasciculation potentials are seen in 4 out of 6 muscles in the upper extremity, and in 2 out of 6 muscles in the lowerextremity. Fasciculation potentials, but no active denervation, are seen in the thoracic paraspinal muscles Chronic reinnervation changes are seen in all tested upper extremity myotomes (C5-T1), thoracic paraspinalmuscles, and the L3-L5 myotomes in the lower extremity. These findings are consistent with a diffuse evolving process affecting the lower motor neuron, such as motorneuron disease. Previous lab studies reviewed B12 215, TSH 0.08 (low). HTLV and 1 and 2 antibodies negative, and a negative, lead level, mercury level now normal. Aldolase normal, copper normal, kappa and lambda light chain levels normal. Thiamine level normal, myoglobin level normal. CPK normal. Folic acid normal. Free T4 1.76 (mildly high). CMP normal. CBC data reviewed. Imaging reports (no images available). CT cervical spine report reviewed no significant canal stenosis. Mild degree of disc space narrowing at C4/C5. No significant neuroforaminal stenosis. CT of the brain unremarkable. b12 supplement 1000 mcg daily recommended. (low normal past results) Local labs: copper 68 (normal 70), all normal: ck, spep, zo, lyme, folate. Last cmp from 2021; Assessment/Plan: motor neuron disease (ALS); symptom onset late 2019 LUE/LLE > RUE weakness; no current bulbar symptoms, walking w/ walker Continue riluzole; check cmp; ordered today. We discussed a new ALS medication called Relyvrio, he will read up on the medication, let me know if he would like to try it. Referral to PT placed today. No PBA symptoms; No sialorrhea; no bulbar symptoms. He has a Left AFO; stopped wearing it d/t trouble tying it. No current breathing issues; has been taking asthma injections for a long time and inhaler. No swallowing issues nor weight loss. RTC 3 months. 40 minutes direct patient care provided on the date of service. documented in this encounter [facility] 12-30-2022 Miscellaneous Notes Call from patient requesting refill. Requested Prescriptions Pending Prescriptions Disp Refills empagliflozin (JARDIANCE) 10 mg tablet 90 tablet 3 Sig: Take 1 tablet by mouth daily with breakfast. Patient last seen 10/16/21 Carla Osei documented in this encounter [facility] 11-16-2022 Miscellaneous Notes Call from patient requesting refill. Requested Prescriptions Pending Prescriptions Disp Refills spironolactone (ALDACTONE) 25 mg tablet 90 tablet 3 Sig: Take 1 tablet by mouth once daily. sacubitril-valsartan (ENTRESTO) 97-103 mg tablet 180 tablet 3 Sig: Take 1 tablet by mouth twice daily. carvedilol (COREG) 6.25 mg tablet 180 tablet 3 Sig: Take 1 tablet by mouth twice daily with meals. Patient last seen 10/16/21 Leland Vigil documented in this encounter [facility] 05-25-2022 Miscellaneous Notes Call from patient requesting refill. Requested Prescriptions Pending Prescriptions Disp Refills spironolactone (ALDACTONE) 25 mg tablet 90 tablet 3 Sig: Take 1 tablet by mouth once daily. Patient last seen 10/16/21 Nanda Carmona Adm documented in this encounter [facility] 03-10-2022 Miscellaneous Notes Call from patient requesting refill. Requested Prescriptions Pending Prescriptions Disp Refills carvedilol (COREG) 6.25 mg tablet 180 tablet 3 Sig: Take 1 tablet by mouth twice daily with meals. Patient last seen 10/16/21 Komal Whyte documented in this encounter [facility] 02-09-2022 Miscellaneous Notes Call from patient requesting refill. Requested Prescriptions Pending Prescriptions Disp Refills sacubitril-valsartan (ENTRESTO) 97-103 mg tablet 180 tablet 3 Sig: Take 1 tablet by mouth twice daily. Patient last seen 10/16/21 Nanda smithCarmona Adm documented in this encounter [facility] 02-04-2022 Miscellaneous Notes Patient has been identified by name and date of : Yes Last office visit in this department: 03/26/2021 RX INSTRUCTIONS: Patient aware RX will be sent to pharmacy. No need to notify patient. Patient phones requesting refills as follows: Requested Prescriptions Pending Prescriptions Disp Refills riluzole (RILUTEK) 50 mg tablet 180 tablet 3 Sig: Take 1 tablet by mouth every 12 hours. Please review and advise. Fidelia Gonzalez documented in this encounter [facility] 02-02-2022 Miscellaneous Notes Last appointment in April was virtual, last OV 03/2021, advise patient to come in for OV? documented in this encounter [facility] 01-05-2022 Miscellaneous Notes Call from patient requesting refill. Requested Prescriptions Pending Prescriptions Disp Refills empagliflozin (JARDIANCE) 10 mg tablet 90 tablet 3 Sig: Take 1 tablet by mouth daily with breakfast. Patient last seen 10/16/21 Nanda smithCarmona Adm documented in this encounter [facility] 11-20-2021 Miscellaneous Notes Device form received from [facility] Pre Admission testing. Form filled out and faxed back. Completed form scanned into [address]. Jessica Callahan documented in this encounter [facility] 10-16-2021 Instructions Sandy Devries MD - 10/16/2021 11:18 AM EDT - Continue current medications. - Follow up with us in HF clinic in 6 months with labs. documented in this encounter [facility] 10-16-2021 History of Present illness Narrative Images from the original note were not included. [facility] Prisca Estrada Department of Cardiovascular Medicine [facility] for [facility] Failure Treatment and Recovery Section of Heart Failure and Transplantation Medicine ESTABLISHED PATIENT PATIENT Paula Momin [address] [facility] [address] [facility] [place] PRIMARY CARE PROVIDER Milton Espinal MD [address] [place] [address] CHIEF COMPLAINT Follow Up HISTORY OF PRESENT ILLNESS Had the pleasure of seeing Mr. Momin today in our heart failure clinic. He is a very pleasant 5-year-old male with past medical history of chronic systolic heart failure due to nonischemic cardiomyopathy, hypertension, hypercholesterolemia, and newly diagnosed ALS. He is presenting for follow-up. In general, he endorses NYHA class I/II mild exertional shortness of breath, not associated with orthopnea, PND, lower extreme edema, presyncope, syncope, chest pain, or palpitations. He is compliant on medications and low-salt diet. TTE with improving LVEF 35% range. REVIEW OF SYSTEMS CONSTITUTIONAL: No unintentional weight loss, malaise, or frequent fevers. No chronic fatigue. EYES: No acute vision symptoms. EARS, NOSE, MOUTH, THROAT: No acute auditive, nasal, oral, or pharyngeal symptoms. CARDIOVASCULAR: As per History of Present Illness. RESPIRATORY: No cough, hemoptysis, or wheezing. No dyspnea at rest. GASTROINTESTINAL: No vomiting or diarrhea. No abdominal pain. No melena or hematemesis. GENITOURINARY: No acute urinary frequency, or incontinence. No renal colic symptoms. MUSCULOSKELETAL: No acute joint pain or swelling. No acute severe back or muscle pain. INTEGUMENTARY: No new skin lesions, rash, or itching. NEUROLOGICAL: No major or recurrent headaches or seizures. + Muscle twitching and weakness. PSYCHIATRIC: No major mood disorder, or recent major psychosocial stressor. ENDOCRINE: No cold or heat intolerance, polyuria, polydipsia, or goiter. HEMATOLOGIC/LYMPHATIC: No major bleeding episode. No swollen nodes. ALLERGIC/IMMUNOLOGIC: No recent major allergic reaction or itching. CURRENT MEDICATIONS atorvastatin (LIPITOR) 10 mg tablet Take 10 mg by mouth once daily. spironolactone (ALDACTONE) 25 mg tablet TAKE 1 TABLET ONCE DAILY riluzole (RILUTEK) 50 mg tablet Take 1 tablet by mouth every 12 hours. EUTHYROX 112 mcg tablet Take 112 mcg by mouth once daily. sacubitril-valsartan (ENTRESTO) 97-103 mg tablet Take 1 tablet by mouth twice daily. empagliflozin (JARDIANCE) 10 mg tablet Take 1 tablet by mouth daily with breakfast. carvedilol (COREG) 6.25 mg tablet TAKE 1 TABLET TWICE DAILY WITH MEALS furosemide (LASIX) 20 mg tablet Take 1 tablet by mouth once daily as needed. diphenhydrAMINE (BENADRYL) 25 mg tablet Take 1 tablet by mouth as needed. Monthly takes prior to Nucala injection mepolizumab (NUCALA) 100 mg injection Inject 100 mg subcutaneously once every month. albuterol HFA (PROAIR HFA) 90 mcg/actuation inhaler Inhale 2 Puffs as instructed every 4 hours as needed for Wheezing/Shortness of Breath. coenzyme Q10 (CO Q-10) 100 mg cap capsule Take 100 mg by mouth once daily. fluticasone-vilanterol (BREO ELLIPTA) 200-25 mcg/dose inhaler Inhale 1 Inhalation as instructed once daily. albuterol 2.5 mg /3 mL (0.083 %) nebulizer solution Use 3 mL via nebulizer every 4 hours as needed for Wheezing/Shortness of Breath. Use over 5-15minutes. PAST MEDICAL HISTORY PAST MEDICAL HISTORY Diagnosis Date ALS (amyotrophic lateral sclerosis) (HCC) CHF (congestive heart failure) (HCC) Family history of internal cardiac defibrillator HTN (hypertension) Hypercholesteremia Hypothyroid Impaired fasting glucose Nonischemic cardiomyopathy (HCC) PAST SURGICAL HISTORY PAST SURGICAL HISTORY Procedure Laterality Date COLONOSCOPY FLX DX W/COLLJ SPEC WHEN PFRMD 12/09/2009 repeat due 2020 IMPLANTABLE CARDIAC DEFIB ICD PAST SURGICAL HISTORY OF 10/2008 right ear -- implant, Dr. Roth PAST SURGICAL HISTORY OF left ear -- stainless implant PAST SURGICAL HISTORY OF 17 appy PAST SURGICAL HISTORY OF age 9 hernia PAST SURGICAL HISTORY OF varicouse veins stripped PAST SURGICAL HISTORY OF 11/19 mole removed from back SOCIAL HISTORY Social History Tobacco Use Smoking status: Never Smoker Smokeless tobacco: Never Used Vaping Use Vaping Use: Never used Substance Use Topics Alcohol use: Not Currently Drug use: No FAMILY HISTORY FAMILY HISTORY Problem Relation Age of Onset Cancer Sister lung Diabetes Sister Coronary Artery Disease Other sister with lupus, of ? [place] age 35 Arthritis Mother lupus; in her 50's Diabetes Brother Colon Cancer No Family History Prostate Cancer No Family History ALLERGIES ALLERGIES Allergen Reactions Sulfa (Sulfonamide * Hives PHYSICAL EXAMINATION BP 120/78 Pulse 70 Ht 182.9 cm (6') Wt 106.6 kg (235 lb) SpO2 97% BMI 31.87 kg/m CONSTITUTIONAL: Well appearing, in no acute distress. EYES: Clear conjunctivae. Extraocular movements are grossly intact. EARS, NOSE, MOUTH, THROAT: Deferred due to masking policy. NECK: Trachea midline. No lymphadenopathy. Thyroid not enlarged. CARDIOVASCULAR: Regular and normal rate. Normal S1 and S2; no S3 or S4. No murmurs. No pericardial rub. No carotid bruit. Peripheral pulses are normal throughout. JVP is normal. No lower extremity edema. RESPIRATORY/LUNGS: Lungs clear to auscultation; no significant wheezing, rhonchi, or rales. ABDOMEN: Soft, non-tender, and non-distended. Bowel sounds are normal. GENITOURINARY: No costovertebral angle tenderness upon palpation. MUSCULOSKELETAL: No gross joint swelling, major deformity, or tenderness. No digital clubbing. Range of motion is grossly normal throughout. INTEGUMENTARY/SKIN: Color, texture, and turgor are normal; no rashes or lesions. No jaundice. NEUROLOGICAL: Gait is grossly normal. Motor/strength grossly intact. PSYCHIATRIC: Alert and oriented to person, place, and time; lucid. Normal affect and insight. Memory is grossly intact. PERTINENT DIAGNOSTIC DATA COMPLETE BLOOD COUNT WBC (k/uL) Date Value 08/12/2021 8.15 12/30/2020 8.92 07/16/2020 6.28 12/26/2019 7.97 RBC (m/uL) Date Value 08/12/2021 5.30 12/30/2020 5.24 07/16/2020 5.31 12/26/2019 5.03 Hemoglobin (g/dL) Date Value 10/16/2021 17.0 08/12/2021 16.0 12/30/2020 16.1 07/16/2020 15.9 12/26/2019 15.6 Hematocrit (%) Date Value 10/16/2021 52.0 08/12/2021 50.3 12/30/2020 48.7 07/16/2020 48.3 12/26/2019 46.5 MCV (fL) Date Value 08/12/2021 94.9 12/30/2020 92.9 07/16/2020 91.0 12/26/2019 92.4 Platelet Count (k/uL) Date Value 08/12/2021 210 12/30/2020 205 07/16/2020 223 12/26/2019 204 BASIC METABOLIC PANEL Sodium (mmol/L) Date Value 05/17/2021 139 01/20/2021 140 12/30/2020 140 Potassium (mmol/L) Date Value 05/17/2021 4.3 01/20/2021 4.3 12/30/2020 4.8 Chloride (mmol/L) Date Value 05/17/2021 103 01/20/2021 103 12/30/2020 103 CO2 (mmol/L) Date Value 05/17/2021 27 01/20/2021 27 12/30/2020 27 BUN (mg/dL) Date Value 05/17/2021 21 01/20/2021 21 12/30/2020 17 Creatinine (mg/dL) Date Value 05/17/2021 1.09 01/20/2021 1.09 12/30/2020 1.01 Calcium (mg/dL) Date Value 05/17/2021 9.4 01/20/2021 9.3 12/30/2020 9.7 Magnesium (mg/dL) Date Value 07/04/2019 2.2 03/15/2019 2.1 11/11/2018 2.2 Glucose (mg/dL) Date Value 05/17/2021 164 01/20/2021 116 12/30/2020 111 Estimated Creatinine Clearance: 88.7 mL/min (based on SCr of 1.09 mg/dL). LIVER FUNCTION PANEL Protein, Total (g/dL) Date Value 05/17/2021 7.2 03/26/2021 7.0 12/30/2020 7.3 Albumin (g/dL) Date Value 05/17/2021 4.7 12/30/2020 4.4 07/16/2020 4.5 Alkaline Phosphatase (U/L) Date Value 05/17/2021 77 12/30/2020 72 07/16/2020 72 Bilirubin, Total (mg/dL) Date Value 05/17/2021 0.6 12/30/2020 0.7 07/16/2020 0.8 AST (U/L) Date Value 05/17/2021 23 12/30/2020 21 07/16/2020 27 ALT (U/L) Date Value 05/17/2021 33 12/30/2020 32 07/16/2020 38 PT INR (no units) Date Value 11/11/2018 1.2 01/31/2015 0.9 LIPID PANEL Cholesterol, Total (mg/dL) Date Value 11/11/2018 151 10/12/2012 121 06/20/2012 135 Total Cholesterol, Nonfasting (mg/dL) Date Value 07/16/2020 193 Triglyceride (mg/dL) Date Value 11/11/2018 157 10/12/2012 241 06/20/2012 444 Triglycerides, Nonfasting (mg/dL) Date Value 07/16/2020 292 HDL Cholesterol (mg/dL) Date Value 11/11/2018 40 10/12/2012 31 06/20/2012 30 HDL Cholesterol, Nonfasting (mg/dL) Date Value 07/16/2020 30 LDL Cholesterol (mg/dL) Date Value 11/11/2018 80 10/12/2012 42 06/20/2012 Unable to calculate due to increased Triglycerides. See LDL-Chol, Direct. LDL Cholesterol, Nonfasting (mg/dL) Date Value 07/16/2020 105 CARDIAC BIOMARKERS NT Pro BNP (pg/mL) Date Value 12/30/2020 98 07/16/2020 82 12/26/2019 157 Uric Acid (mg/dL) Date Value 11/11/2018 6.8 OTHER BIOMARKERS TSH (uU/mL) Date Value 11/11/2018 0.119 01/07/2013 1.620 10/12/2012 3.250 Hemoglobin A1C (%) Date Value 11/11/2018 6.4 01/07/2013 6.1 10/12/2012 6.2 Vitamin D 25 Hydroxy (ng/mL) Date Value 11/11/2018 24.1 Uric Acid (mg/dL) Date Value 11/11/2018 6.8 ABO/RH(D) (no units) Date Value 08/23/2019 AB POSTIVE 11/11/2018 AB POSTIVE 11/11/2018 AB POSTIVE Antibody Screen (no units) Date Value 08/23/2019 NEG 11/11/2018 NEG ECHOCARDIOGRAM LV Ejection Fraction (%) Date Value 07/16/2020 36 07/04/2019 24 11/11/2018 28 LV Diastolic Diameter (cm) Date Value 11/08/2006 6.2 LV Systolic Diameter (cm) Date Value 11/08/2006 4.7 PREVIOUS DIAGNOSTIC STUDIES TTE 07/04/19 - Exam indication: Evaluation of known heart failure to guide therapy - The left ventricle is mildly dilated. Left ventricular systolic function is severely decreased. EF = 24 5% (2D biplane) - The right ventricle is normal in size. Right ventricular systolic function is mildly decreased. - The visualized aorta is borderline dilated with a maximal dimension of 4.0 cm. - There is 1-2+ MR. - Exam was compared with the prior echocardiographic exam performed on 11/11/2018. LV systolic function is similar on comparison. IMPRESSION AND RECOMMENDATIONS 1. Chronic systolic heart failure: Due to nonischemic cardiomyopathy. - NYHA class I/II, ACC/AHA stage C. - Compensated and euvolemic. - Continue current medications. No room for uptitration. 2. Nonischemic cardiomyopathy: Suspected genetic in etiology. - Referred to genetics. - s/p SQ ICD. 3. Hypertension: Controlled. - Continue current medications. 4. Hyperlipidemia: - Diet. - statin. 5. Obesity: regular exercise and weight loss. 6. Possible atrial fibrillation: on ICD check. - Following with EP for anticoagulation needs. I have discussed with the patient and family and caregivers when present, in simple terms, the likely etiologies of the patient's condition, its pathophysiology, prognosis, current status, diagnostic modalities, and both basic and advanced therapeutic options. In addition, we discussed guideline-recommended lifestyle modifications such as diet, weight management, exercise, and abstinence of tobacco, alcohol, and illicit substances. When appropriate, these were also documented in the Patient Instructions section of the After Visit Summary, which was printed and handed to the patient. The patient was also provided pertinent healthcare educational booklets available in our clinic. I have personally performed a [id number] diagnostic evaluation on this patient, including anamnesis and physical examination, review of pertinent available medical records, and personal visualization and interpretation of pertinent available diagnostic data. The patient s condition required a significant and separately identifiable evaluation and management service, above and beyond the usual pre- and post-procedure/operative care associated with any procedure or service performed. Greater than 50% of the time of this visit was spent in counseling and/or coordinating care for the patient, the nature of which is noted above. Sandy Devries MD, [facility] Staff [employer] Workflow Consultant, Heart Failure and Transplantation Medicine [facility] for Heart Failure Treatment and Recovery [facility] Department of Cardiovascular Medicine [facility] Heart, Vascular, and Thoracic [place] [address] [facility] Tel: Fax: [email or web address] This note was partially created using voice recognition software and is inherently subject to errors including those of syntax and sound-alike substitutions which may escape proofreading. In such instances, original meaning may be extrapolated by contextual derivation. documented in this encounter [facility] 08-12-2021 History of Present illness Narrative Images from the original note were not included. Heart and Vascular [place] [facility] Department of Cardiovascular Medicine SECTION OF CARDIAC PACING and ELECTROPHYSIOLOGY OUTPATIENT VISIT DATE August 12, 2021 OUTPATIENT VISIT TYPE ESTABLISHED PRIMARY CARE PHYSICIAN: Milton Espinal [address] [place] [address] CHIEF COMPLAINT: Denies palpitations or SOB HISTORY OF PRESENT ILLNESS/ NURSING INTAKE HISTORY: Mr. Momin is a 61 year old male who presents today for follow-up visit for device management. He was last seen by ROSEMARY Santos on 07/16/2020. He has a past medical history of HTN, hypothyroidism, CHF and nonischemic cardiomyopathy (EF 20% 2018, EF 24% via 06/2019 echo, EF=36% 06/2020) s/p S-ICD implant 08/23/2019. He reports doing well overall. He reports occasional palpitations. He reports occasional postural lightheadedness, which last for a few seconds. Denies any device related issues. He uses lasix prn for edema but has not needed it recently. Device check today showed 2 AF detections. He denies chest pain, shortness of breath, orthopnea, cough, edema, palpitations, PND, lightheadedness or syncope. PAST MEDICAL HISTORY Diagnosis Date ALS (amyotrophic lateral sclerosis) (HCC) CHF (congestive heart failure) (HCC) Family history of internal cardiac defibrillator HTN (hypertension) Hypercholesteremia Hypothyroid Impaired fasting glucose Nonischemic cardiomyopathy (HCC) PAST SURGICAL HISTORY Procedure Laterality Date COLONOSCOPY FLX DX W/COLLJ SPEC WHEN PFRMD 12/09/2009 repeat due 2019 IMPLANTABLE CARDIAC DEFIB ICD PAST SURGICAL HISTORY OF 10/2008 right ear -- implant, Dr. Roth PAST SURGICAL HISTORY OF left ear -- stainless implant PAST SURGICAL HISTORY OF 17 appy PAST SURGICAL HISTORY OF age 9 hernia PAST SURGICAL HISTORY OF varicouse veins stripped PAST SURGICAL HISTORY OF 11/19 mole removed from back SOCIAL HISTORY Social History Tobacco Use Smoking status: Never Smoker Smokeless tobacco: Never Used Vaping Use Vaping Use: Never used Substance Use Topics Alcohol use: Not Currently Drug use: No FAMILY HISTORY Problem Relation Age of Onset Cancer Sister lung Diabetes Sister Coronary Artery Disease Other sister with lupus, of ? [place] age 35 Arthritis Mother lupus; in her 50's Diabetes Brother Colon Cancer No Family History Prostate Cancer No Family History ALLERGIES: ALLERGIES Allergen Reactions Sulfa (Sulfonamide * Hives MEDICATIONS: atorvastatin (LIPITOR) 10 mg tablet Take 10 mg by mouth once daily. spironolactone (ALDACTONE) 25 mg tablet TAKE 1 TABLET ONCE DAILY riluzole (RILUTEK) 50 mg tablet Take 1 tablet by mouth every 12 hours. EUTHYROX 112 mcg tablet sacubitril-valsartan (ENTRESTO) 97-103 mg tablet Take 1 tablet by mouth twice daily. carvedilol (COREG) 6.25 mg tablet TAKE 1 TABLET TWICE DAILY WITH MEALS furosemide (LASIX) 20 mg tablet Take 1 tablet by mouth once daily as needed. diphenhydrAMINE (BENADRYL) 25 mg tablet Take 1 tablet by mouth as needed. Monthly takes prior to Nucala injection mepolizumab (NUCALA) 100 mg injection Inject 100 mg subcutaneously once every month. albuterol HFA (PROAIR HFA) 90 mcg/actuation inhaler Inhale 2 Puffs as instructed every 4 hours as needed for Wheezing/Shortness of Breath. coenzyme Q10 (CO Q-10) 100 mg cap capsule Take 100 mg by mouth once daily. fluticasone-vilanterol (BREO ELLIPTA) 200-25 mcg/dose inhaler Inhale 1 Inhalation as instructed once daily. albuterol 2.5 mg /3 mL (0.083 %) nebulizer solution Use 3 mL via nebulizer every 4 hours as needed for Wheezing/Shortness of Breath. Use over 5-15minutes. empagliflozin (JARDIANCE) 10 mg tablet Take 1 tablet by mouth daily with breakfast. Edna Rizzo RN PHYSICAL EXAMINATION: BP 160/88 Pulse (!) 50 Ht 182.9 cm (6') Wt 104.3 kg (230 lb) BMI 31.19 kg/m Physical Exam Constitutional: Appearance: He is well-developed. Neck: Vascular: No JVD. Cardiovascular: Rate and Rhythm: Normal rate and regular rhythm. Pulmonary: Effort: Pulmonary effort is normal. Breath sounds: Normal breath sounds. Abdominal: General: Bowel sounds are normal. Palpations: Abdomen is soft. Musculoskeletal: General: Normal range of motion. Cervical back: Normal range of motion. Skin: General: Skin is warm and dry. Neurological: Mental Status: He is alert and oriented to person, place, and time. Gait: Gait abnormal. Psychiatric: Thought Content: Thought content normal. CARDIOVASCULAR MEDICINE TESTING: TTE 07/16/2020 CONCLUSIONS: - Exam indication: Evaluation of known heart failure to guide therapy - The left ventricle is normal in size. Left ventricular systolic function is moderately decreased. EF = 36 5% (2D biplane) Definity contrast used for endocardial border detection. Grade I left ventricular diastolic dysfunction. - The right ventricle is normal in size. Right ventricular systolic function is mildly decreased. - The visualized aorta is dilated with a maximal dimension of 4.2 cm. - Estimated right ventricular systolic pressure is 28 mmHg consistent with normal pulmonary artery pressures. Estimated right atrial pressure is 3 mmHg based on IVC assessment. - Exam was compared with the prior CC echocardiographic exam performed on 07/04/2019. EF measured higher. IMPRESSION/RECOMMENDATIONS: Mr. Momin is a 61 year old male who presents for follow up device check and annual EP visit. PMH of HTN, hypothyroidism, CHF and nonischemic cardiomyopathy (EF 20% 2018, EF 24% via 06/2019 echo, EF=36% 06/2020) s/p S-ICD implant 08/23/2019. Device interrogation shows normal function. Short burst of irregular rhythm (<1min) noted with possible NSAF. Will follow. No need for additional treatment at this time. Patient to continue follow up with Dr Devries with NICM, HTN. Also now seeing neurology with motor neuron disease, concerning for ALS. S-ICD is MRI compatible if needed. I personally interviewed, confirmed and edited the above information as obtained by others. CONTACT INFORMATION: Ted Saleh MD documented in this encounter [facility] 07-31-2021 Miscellaneous Notes Pt called stating he was diagnosed with ALS in January. It was recently recommended that he start Vitamin 2BG Nerve Care Formula. He is concerned because when he read the ingredients, it has Potassium in it. He would like to make sure it is okay to take. Pt can be reached at [phone] Michelle [id number] documented in this encounter [facility] 07-28-2021 Miscellaneous Notes Forms from [employer] [facility] received- Disability forms- Report of Health Care Provider needs completed and faxed back documented in this encounter [facility] 2021 Miscellaneous Notes Received call from pt who will be at Main campus on 03/31 and would like to have his Labs drawn at that time. Can you please drop orders. Thank you Nanda [id number] documented in this encounter [facility] documented as of this encounter (statuses as of 07/28/2021) [facility] History of Past illness Narrative* Problem Noted Date Resolved Date pre-transplant evaluation for heart transplant 0 11/15/2018 11/16/2018 Overview: November 15, 2018- Patient consented for pre heart transplant evaluation, Notice of Potential Noncoverage (NPN), HHT research and health maintenance reviewed. Pre-Heart [employer] Pager [phone] Referral/Eval ended, patient deemed too well for transplant at this time per Dr. Wiggins. Follow medically. Pre-Heart [employer] Pager [phone] documented as of this encounter (statuses as of 08/12/2021) [facility] History of Past illness Narrative* Problem Noted Date Resolved Date pre-transplant evaluation for heart transplant 0 11/15/2018 11/16/2018 Overview: November 15, 2018- Patient consented for pre heart transplant evaluation, Notice of Potential Noncoverage (NPN), HHT research and health maintenance reviewed. Pre-Heart [employer] Pager [phone] Referral/Eval ended, patient deemed too well for transplant at this time per Dr. Wiggins. Follow medically. Pre-Heart [employer] Pager [phone] documented as of this encounter (statuses as of 08/12/2021) [facility] History of Past illness Narrative* Problem Noted Date Resolved Date pre-transplant evaluation for heart transplant 0 11/15/2018 11/16/2018 Overview: November 15, 2018- Patient consented for pre heart transplant evaluation, Notice of Potential Noncoverage (NPN), HHT research and health maintenance reviewed. Pre-Heart [employer] Pager [phone] Referral/Eval ended, patient deemed too well for transplant at this time per Dr. Wiggins. Follow medically. Pre-Heart [employer] Pager [phone] documented as of this encounter (statuses as of 08/12/2021) [facility] History of Past illness Narrative* Problem Noted Date Resolved Date pre-transplant evaluation for heart transplant 0 11/15/2018 11/16/2018 Overview: November 15, 2018- Patient consented for pre heart transplant evaluation, Notice of Potential Noncoverage (NPN), HHT research and health maintenance reviewed. Pre-Heart [employer] Pager [phone] Referral/Eval ended, patient deemed too well for transplant at this time per Dr. Wiggins. Follow medically. Pre-Heart [employer] Pager [phone] documented as of this encounter (statuses as of 08/20/2021) [facility] History of Past illness Narrative* Problem Noted Date Resolved Date pre-transplant evaluation for heart transplant 0 11/15/2018 11/16/2018 Overview: November 15, 2018- Patient consented for pre heart transplant evaluation, Notice of Potential Noncoverage (NPN), HHT research and health maintenance reviewed. Pre-Heart [employer] Pager [phone] Referral/Eval ended, patient deemed too well for transplant at this time per Dr. Wiggins. Follow medically. Pre-Heart [employer] Pager [phone] documented as of this encounter (statuses as of 09/06/2021) [facility] History of Past illness Narrative* Problem Noted Date Resolved Date pre-transplant evaluation for heart transplant 0 11/15/2018 11/16/2018 Overview: November 15, 2018- Patient consented for pre heart transplant evaluation, Notice of Potential Noncoverage (NPN), HHT research and health maintenance reviewed. Pre-Heart [employer] Pager [phone] Referral/Eval ended, patient deemed too well for transplant at this time per Dr. Wiggins. Follow medically. Pre-Heart [employer] Pager [phone] documented as of this encounter (statuses as of 10/16/2021) [facility] History of Past illness Narrative* Problem Noted Date Resolved Date pre-transplant evaluation for heart transplant 0 11/15/2018 11/16/2018 Overview: November 15, 2018- Patient consented for pre heart transplant evaluation, Notice of Potential Noncoverage (NPN), HHT research and health maintenance reviewed. Pre-Heart [employer] Pager [phone] Referral/Eval ended, patient deemed too well for transplant at this time per Dr. Wiggins. Follow medically. Pre-Heart [employer] Pager [phone] documented as of this encounter (statuses as of 10/21/2021) [facility] History of Past illness Narrative* Problem Noted Date Resolved Date pre-transplant evaluation for heart transplant 0 11/15/2018 11/16/2018 Overview: November 15, 2018- Patient consented for pre heart transplant evaluation, Notice of Potential Noncoverage (NPN), HHT research and health maintenance reviewed. Pre-Heart [employer] Pager [phone] Referral/Eval ended, patient deemed too well for transplant at this time per Dr. Wiggins. Follow medically. Pre-Heart [employer] Pager [phone] documented as of this encounter (statuses as of 11/11/2021) [facility] History of Past illness Narrative* Problem Noted Date Resolved Date pre-transplant evaluation for heart transplant 0 11/15/2018 11/16/2018 Overview: November 15, 2018- Patient consented for pre heart transplant evaluation, Notice of Potential Noncoverage (NPN), HHT research and health maintenance reviewed. Pre-Heart [employer] Pager [phone] Referral/Eval ended, patient deemed too well for transplant at this time per Dr. Wiggins. Follow medically. Pre-Heart [employer] Pager [phone] documented as of this encounter (statuses as of 11/20/2021) [facility] History of Past illness Narrative* Problem Noted Date Resolved Date pre-transplant evaluation for heart transplant 0 11/15/2018 11/16/2018 Overview: November 15, 2018- Patient consented for pre heart transplant evaluation, Notice of Potential Noncoverage (NPN), HHT research and health maintenance reviewed. Pre-Heart [employer] Pager [phone] Referral/Eval ended, patient deemed too well for transplant at this time per Dr. Wiggins. Follow medically. Pre-Heart [employer] Pager [phone] documented as of this encounter (statuses as of 01/06/2022) [facility] History of Past illness Narrative* Problem Noted Date Resolved Date pre-transplant evaluation for heart transplant 0 11/15/2018 11/16/2018 Overview: November 15, 2018- Patient consented for pre heart transplant evaluation, Notice of Potential Noncoverage (NPN), HHT research and health maintenance reviewed. Pre-Heart [employer] Pager [phone] Referral/Eval ended, patient deemed too well for transplant at this time per Dr. Wiggins. Follow medically. Pre-Heart [employer] Pager [phone] documented as of this encounter (statuses as of 02/02/2022) [facility] History of Past illness Narrative* Problem Noted Date Resolved Date pre-transplant evaluation for heart transplant 0 11/15/2018 11/16/2018 Overview: November 15, 2018- Patient consented for pre heart transplant evaluation, Notice of Potential Noncoverage (NPN), HHT research and health maintenance reviewed. Pre-Heart [employer] Pager [phone] Referral/Eval ended, patient deemed too well for transplant at this time per Dr. Wiggins. Follow medically. Pre-Heart [employer] Pager [phone] documented as of this encounter (statuses as of 02/05/2022) [facility] History of Past illness Narrative* Problem Noted Date Resolved Date pre-transplant evaluation for heart transplant 0 11/15/2018 11/16/2018 Overview: November 15, 2018- Patient consented for pre heart transplant evaluation, Notice of Potential Noncoverage (NPN), HHT research and health maintenance reviewed. Pre-Heart [employer] Pager [phone] Referral/Eval ended, patient deemed too well for transplant at this time per Dr. Wiggins. Follow medically. Pre-Heart [employer] Pager [phone] documented as of this encounter (statuses as of 02/09/2022) [facility] History of Past illness Narrative* Problem Noted Date Resolved Date pre-transplant evaluation for heart transplant 0 11/15/2018 11/16/2018 Overview: November 15, 2018- Patient consented for pre heart transplant evaluation, Notice of Potential Noncoverage (NPN), HHT research and health maintenance reviewed. Pre-Heart [employer] Pager [phone] Referral/Eval ended, patient deemed too well for transplant at this time per Dr. Wiggins. Follow medically. Pre-Heart [employer] Pager [phone] documented as of this encounter (statuses as of 03/11/2022) [facility] History of Past illness Narrative* Problem Noted Date Resolved Date pre-transplant evaluation for heart transplant 0 11/15/2018 11/16/2018 Overview: November 15, 2018- Patient consented for pre heart transplant evaluation, Notice of Potential Noncoverage (NPN), HHT research and health maintenance reviewed. Pre-Heart [employer] Pager [phone] Referral/Eval ended, patient deemed too well for transplant at this time per Dr. Wiggins. Follow medically. Pre-Heart [employer] Pager [phone] documented as of this encounter (statuses as of 03/18/2022) [facility] History of Past illness Narrative* Problem Noted Date Resolved Date pre-transplant evaluation for heart transplant 0 11/15/2018 11/16/2018 Overview: November 15, 2018- Patient consented for pre heart transplant evaluation, Notice of Potential Noncoverage (NPN), HHT research and health maintenance reviewed. Pre-Heart [employer] Pager [phone] Referral/Eval ended, patient deemed too well for transplant at this time per Dr. Wiggins. Follow medically. Pre-Heart [employer] Pager [phone] documented as of this encounter (statuses as of 05/25/2022) [facility] History of Past illness Narrative* Problem Noted Date Resolved Date pre-transplant evaluation for heart transplant 0 11/15/2018 11/16/2018 Overview: November 15, 2018- Patient consented for pre heart transplant evaluation, Notice of Potential Noncoverage (NPN), HHT research and health maintenance reviewed. Pre-Heart [employer] Pager [phone] Referral/Eval ended, patient deemed too well for transplant at this time per Dr. Wiggins. Follow medically. Pre-Heart [employer] Pager [phone] documented as of this encounter (statuses as of 10/21/2022) [facility] History of Past illness Narrative* Problem Noted Date Diagnosed Date Resolved Date pre-transplant evaluation fo r heart transplant 11/15/2018 11/16/2018 Overview: November 15, 2018- Patient consented for pre heart transplant evaluation, Notice of Potential Noncoverage (NPN), HHT research and health maintenance reviewed. Pre-Heart [employer] Pager [phone] Referral/Eval ended, patient deemed too well for transplant at this time per Dr. Wiggins. Follow medically. Pre-Heart [employer] Pager [phone] documented as of this encounter (statuses as of 10/27/2022) [facility] History of Past illness Narrative* Problem Noted Date Diagnosed Date Resolved Date pre-transplant evaluation fo r heart transplant 11/15/2018 11/16/2018 Overview: November 15, 2018- Patient consented for pre heart transplant evaluation, Notice of Potential Noncoverage (NPN), HHT research and health maintenance reviewed. Pre-Heart [employer] Pager [phone] Referral/Eval ended, patient deemed too well for transplant at this time per Dr. Wiggins. Follow medically. Pre-Heart [employer] Pager [phone] documented as of this encounter (statuses as of 10/29/2022) [facility] History of Past illness Narrative* Problem Noted Date Diagnosed Date Resolved Date pre-transplant evaluation fo r heart transplant 11/15/2018 11/16/2018 Overview: November 15, 2018- Patient consented for pre heart transplant evaluation, Notice of Potential Noncoverage (NPN), HHT research and health maintenance reviewed. Pre-Heart [employer] Pager [phone] Referral/Eval ended, patient deemed too well for transplant at this time per Dr. Wiggins. Follow medically. Pre-Heart [employer] Pager [phone] documented as of this encounter (statuses as of 11/05/2022) [facility] History of Past illness Narrative* Problem Noted Date Diagnosed Date Resolved Date pre-transplant evaluation fo r heart transplant 11/15/2018 11/16/2018 Overview: November 15, 2018- Patient consented for pre heart transplant evaluation, Notice of Potential Noncoverage (NPN), HHT research and health maintenance reviewed. Pre-Heart [employer] Pager [phone] Referral/Eval ended, patient deemed too well for transplant at this time per Dr. Wiggins. Follow medically. Pre-Heart [employer] Pager [phone] documented as of this encounter (statuses as of 11/16/2022) [facility] History of Past illness Narrative* Problem Noted Date Diagnosed Date Resolved Date pre-transplant evaluation fo r heart transplant 11/15/2018 11/16/2018 Overview: November 15, 2018- Patient consented for pre heart transplant evaluation, Notice of Potential Noncoverage (NPN), HHT research and health maintenance reviewed. Pre-Heart [employer] Pager [phone] Referral/Eval ended, patient deemed too well for transplant at this time per Dr. Wiggins. Follow medically. Pre-Heart [employer] Pager [phone] documented as of this encounter (statuses as of 12/30/2022) [facility] History of Past illness Narrative* Problem Noted Date Diagnosed Date Resolved Date pre-transplant evaluation fo r heart transplant 11/15/2018 11/16/2018 Overview: November 15, 2018- Patient consented for pre heart transplant evaluation, Notice of Potential Noncoverage (NPN), HHT research and health maintenance reviewed. Pre-Heart [employer] Pager [phone] Referral/Eval ended, patient deemed too well for transplant at this time per Dr. Wiggins. Follow medically. Pre-Heart [employer] Pager [phone] documented as of this encounter (statuses as of 12/31/2022) [facility] History of Past illness Narrative* Problem Noted Date Diagnosed Date Resolved Date pre-transplant evaluation fo r heart transplant 11/15/2018 11/16/2018 Overview: November 15, 2018- Patient consented for pre heart transplant evaluation, Notice of Potential Noncoverage (NPN), HHT research and health maintenance reviewed. Pre-Heart [employer] Pager [phone] Referral/Eval ended, patient deemed too well for transplant at this time per Dr. Wiggins. Follow medically. Pre-Heart [employer] Pager [phone] documented as of this encounter (statuses as of 12/31/2022) [facility] History of Past illness Narrative* Problem Noted Date Diagnosed Date Resolved Date pre-transplant evaluation fo r heart transplant 11/15/2018 11/16/2018 Overview: November 15, 2018- Patient consented for pre heart transplant evaluation, Notice of Potential Noncoverage (NPN), HHT research and health maintenance reviewed. Pre-Heart [employer] Pager [phone] Referral/Eval ended, patient deemed too well for transplant at this time per Dr. Wiggins. Follow medically. Pre-Heart [employer] Pager [phone] documented as of this encounter (statuses as of 01/08/2023) [facility] History of Past illness Narrative* Problem Noted Date Diagnosed Date Resolved Date pre-transplant evaluation fo r heart transplant 11/15/2018 11/16/2018 Overview: November 15, 2018- Patient consented for pre heart transplant evaluation, Notice of Potential Noncoverage (NPN), HHT research and health maintenance reviewed. Pre-Heart [employer] Pager [phone] Referral/Eval ended, patient deemed too well for transplant at this time per Dr. Wiggins. Follow medically. Pre-Heart [employer] Pager [phone] documented as of this encounter (statuses as of 01/19/2023) [facility] History of Past illness Narrative* Problem Noted Date Diagnosed Date Resolved Date pre-transplant evaluation fo r heart transplant 11/15/2018 11/16/2018 Overview: November 15, 2018- Patient consented for pre heart transplant evaluation, Notice of Potential Noncoverage (NPN), HHT research and health maintenance reviewed. Pre-Heart [employer] Pager [phone] Referral/Eval ended, patient deemed too well for transplant at this time per Dr. Wiggins. Follow medically. Pre-Heart [employer] Pager [phone] documented as of this encounter (statuses as of 01/23/2023) [facility] History of Past illness Narrative* Problem Noted Date Diagnosed Date Resolved Date pre-transplant evaluation fo r heart transplant 11/15/2018 11/16/2018 Overview: November 15, 2018- Patient consented for pre heart transplant evaluation, Notice of Potential Noncoverage (NPN), HHT research and health maintenance reviewed. Pre-Heart [employer] Pager [phone] Referral/Eval ended, patient deemed too well for transplant at this time per Dr. Wiggins. Follow medically. Pre-Heart [employer] Pager [phone] documented as of this encounter (statuses as of 01/23/2023) [facility] Diagnosis Non-ischemic cardiomyopathy (HCC)- Primary Other primary cardiomyopathies [facility] Chronic combined systolic and diastolic heart failure (HCC)- Primary Chronic combined systolic and diastolic [facility] failure [facility] Chronic combined systolic and diastolic heart failure (HCC)- Primary Chronic combined systolic and diastolic heart failure Non-ischemic cardiomyopathy (HCC) Other primary cardiomyopathies Essential hypertension, benign Mixed hyperlipidemia [facility] Diagnosis Chronic combined systolic and diastolic heart failure (HCC)- Primary Chronic combined systolic and diastolic heart failure [facility] Chronic combined systolic and diastolic heart failure (HCC) Chronic combined systolic and diastolic heart failure [facility] Diagnosis Chronic combined systolic and diastolic heart failure (HCC) Chronic combined systolic and diastolic heart failure [facility] Chronic combined systolic and diastolic heart failure (HCC)- Primary Chronic combined systolic and diastolic heart failure [facility] Diagnosis Cardiomyopathy, nonischemic (HCC)- Primary Other primary cardiomyopathies [facility] Chronic combined systolic and diastolic heart failure (HCC) Chronic combined systolic and diastolic heart failure [facility] Chronic combined systolic and diastolic heart failure (HCC) Chronic combined systolic and diastolic heart failure [facility] Diagnosis Chronic combined systolic and diastolic heart failure (HCC) Chronic combined systolic and diastolic heart failure [facility] Diagnosis ALS (amyotrophic lateral sclerosis) (HCC)- Primary Amyotrophic lateral sclerosis High risk medication use Encounter for long-term (current) use of other medications [facility] Diagnosis Chronic combined systolic and diastolic heart failure (HCC)- Primary Chronic combined systolic and diastolic heart failure Non-ischemic cardiomyopathy (HCC) Other primary cardiomyopathies Mixed hyperlipidemia Essential hypertension, benign documented in this encounter [facility] for referral (narrative)* Outpatient Procedure (Routine) - Pending Review Specialty Diagnoses / Procedures Referred By Contac t Referred To [facility] [place] Diagnoses Chronic combined systolic and diastolic heart failure (HCC) Procedures ECG COMPLETE ECG ROUTINE ECG W/LEAST 12 LDS W/I&R Ted Saleh MD [address] [place] [address] [address] Referral ID Status Reason Start Date Expiration Date Visits Requested Visits Authorized [id number] Pending Review Auto-Generat ed Referral 08/12/2021 08/12/2022 [address] [facility] for referral (narrative)* Outpatient Procedure (Routine) - Authorized Specialty Diagnoses / Procedures Referred By Candace anguiano Referred To [facility] Diagnoses Cardiomyopathy, nonischemic (HCC) Procedures ECG COMPLETE ECG ROUTINE ECG W/LEAST 12 LDS W/I&R Ted Saleh MD [address] [place] [address] [address] Referral ID Status Reason Start Date Expiration Date Visits Requested Visits Authorized [id number] Authorized Auto-Generat ed Referral 10/28/2022 10/28/2023 [address] [facility] for referral (narrative)* Outpatient Procedure (Routine) - Authorized Specialty Diagnoses / Procedures Referred By Contac t Referred To [facility] Diagnoses Chronic combined systolic and diastolic heart failure (HCC) Procedures ECHO ECHO TTHRC R-T 2D W/WOM-MODE COMPL SPEC&COLR D Sandy Devries MD [address] [place] [address] [facility] [address] [place] [address] Referral ID Status Reason Start Date Expiration Date Visits Requested Visits Authorized [id number] Authorized Auto-Generat ed Referral 01/22/2023 01/22/2024 1 1 [facility] Advance Directives No Advanced Directives Records FoundDocuments on File Type Date Recorded 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 Advance Directive(s) 08/23/2019 10:25 AM Advance Directive(s) 08/22/2019 4:49 PM Advance Directive(s) 11/16/2018 9:05 AM Documents on File Type Date Recorded 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 Advance Directive(s) 08/23/2019 10:25 AM Advance Directive(s) 08/22/2019 4:49 PM Advance Directive(s) 11/16/2018 9:05 AM Reason for Referral Specialty Diagnoses / Procedures Referred By Contac t Referred To Contact Josh Go MD [address] [place] [address] Referral ID Status Reason Start Date Expiration Date V isits Requested Visits Authorized [id number] Pending Review 1 1 Specialty Diagnoses / Procedures Referred By Contac t Referred To Contact [facility] Diagnoses ALS (amyotrophic lateral sclerosis) (HCC) Procedures CONSULT TO PHYSICAL THERAPY PHYSICAL THERAPY EVALUATION HIGH COMPLEX 45 MINS Josh Go MD [address] [place] [address] [facility] [address] [place] [id number] Referral ID Status Reason Start Date Expiration Date Visits Requested Visits Authorized [id number] Pending Review Auto-Generat ed Referral 12/30/2022 12/30/2023 1 1 Summary Purpose Family History No Family History Records Found Additional Source Comments Source Comments (unrecognize d section and content) In the event this informatio n is protected by the Federal Confidentiality of Alcohol and Drug Abuse Patient Records regulations: The Federal rules restrict any use of the information to criminally investigate or prosecute any alcohol or drug abuse patient.[facility] event this information is protected by the Federal Confidentiality of Alcohol and Drug Abuse Patient Records regulations: The Federal rules restrict any use of the information to criminally investigate or prosecute any alcohol or drug abuse patient.[facility] the event this information is protected by the Federal Confidentiality of Alcohol and Drug Abuse Patient Records regulations: The Federal rules restrict any use of the information to criminally investigate or prosecute any alcohol or drug abuse patient.[facility] the event this information is protected by the Federal Confidentiality of Alcohol and Drug Abuse Patient Records regulations: The Federal rules restrict any use of the information to criminally investigate or prosecute any alcohol or drug abuse patient.[facility] the event this information is protected by the Federal Confidentiality of Alcohol and Drug Abuse Patient Records regulations: The Federal rules restrict any use of the information to criminally investigate or prosecute any alcohol or drug abuse patient.[facility] the event this information is protected by the Federal Confidentiality of Alcohol and Drug Abuse Patient Records regulations: The Federal rules restrict any use of the information to criminally investigate or prosecute any alcohol or drug abuse patient.[facility] the event this information is protected by the Federal Confidentiality of Alcohol and Drug Abuse Patient Records regulations: The Federal rules restrict any use of the information to criminally investigate or prosecute any alcohol or drug abuse patient.[facility] the event this information is protected by the Federal Confidentiality of Alcohol and Drug Abuse Patient Records regulations: The Federal rules restrict any use of the information to criminally investigate or prosecute any alcohol or drug abuse patient.[facility] the event this information is protected by the Federal Confidentiality of Alcohol and Drug Abuse Patient Records regulations: The Federal rules restrict any use of the information to criminally investigate or prosecute any alcohol or drug abuse patient.[facility] the event this information is protected by the Federal Confidentiality of Alcohol and Drug Abuse Patient Records regulations: The Federal rules restrict any use of the information to criminally investigate or prosecute any alcohol or drug abuse patient.[facility] the event this information is protected by the Federal Confidentiality of Alcohol and Drug Abuse Patient Records regulations: The Federal rules restrict any use of the information to criminally investigate or prosecute any alcohol or drug abuse patient.[facility] the event this information is protected by the Federal Confidentiality of Alcohol and Drug Abuse Patient Records regulations: The Federal rules restrict any use of the information to criminally investigate or prosecute any alcohol or drug abuse patient.[facility] the event this information is protected by the Federal Confidentiality of Alcohol and Drug Abuse Patient Records regulations: The Federal rules restrict any use of the information to criminally investigate or prosecute any alcohol or drug abuse patient.[facility] the event this information is protected by the Federal Confidentiality of Alcohol and Drug Abuse Patient Records regulations: The Federal rules restrict any use of the information to criminally investigate or prosecute any alcohol or drug abuse patient.[facility] the event this information is protected by the Federal Confidentiality of Alcohol and Drug Abuse Patient Records regulations: The Federal rules restrict any use of the information to criminally investigate or prosecute any alcohol or drug abuse patient.[facility] the event this information is protected by the Federal Confidentiality of Alcohol and Drug Abuse Patient Records regulations: The Federal rules restrict any use of the information to criminally investigate or prosecute any alcohol or drug abuse patient.[facility] the event this information is protected by the Federal Confidentiality of Alcohol and Drug Abuse Patient Records regulations: The Federal rules restrict any use of the information to criminally investigate or prosecute any alcohol or drug abuse patient.[facility] the event this information is protected by the Federal Confidentiality of Alcohol and Drug Abuse Patient Records regulations: The Federal rules restrict any use of the information to criminally investigate or prosecute any alcohol or drug abuse patient.[facility] the event this information is protected by the Federal Confidentiality of Alcohol and Drug Abuse Patient Records regulations: The Federal rules restrict any use of the information to criminally investigate or prosecute any alcohol or drug abuse patient.[facility] the event this information is protected by the Federal Confidentiality of Alcohol and Drug Abuse Patient Records regulations: The Federal rules restrict any use of the information to criminally investigate or prosecute any alcohol or drug abuse patient.[facility] the event this information is protected by the Federal Confidentiality of Alcohol and Drug Abuse Patient Records regulations: The Federal rules restrict any use of the information to criminally investigate or prosecute any alcohol or drug abuse patient.[facility] the event this information is protected by the Federal Confidentiality of Alcohol and Drug Abuse Patient Records regulations: The Federal rules restrict any use of the information to criminally investigate or prosecute any alcohol or drug abuse patient.[facility] the event this information is protected by the Federal Confidentiality of Alcohol and Drug Abuse Patient Records regulations: The Federal rules restrict any use of the information to criminally investigate or prosecute any alcohol or drug abuse patient.[facility] the event this information is protected by the Federal Confidentiality of Alcohol and Drug Abuse Patient Records regulations: The Federal rules restrict any use of the information to criminally investigate or prosecute any alcohol or drug abuse patient.[facility] the event this information is protected by the Federal Confidentiality of Alcohol and Drug Abuse Patient Records regulations: The Federal rules restrict any use of the information to criminally investigate or prosecute any alcohol or drug abuse patient.[facility] the event this information is protected by the Federal Confidentiality of Alcohol and Drug Abuse Patient Records regulations: The Federal rules restrict any use of the information to criminally investigate or prosecute any alcohol or drug abuse patient.[facility] the event this information is protected by the Federal Confidentiality of Alcohol and Drug Abuse Patient Records regulations: The Federal rules restrict any use of the information to criminally investigate or prosecute any alcohol or drug abuse patient.[facility] the event this information is protected by the Federal Confidentiality of Alcohol and Drug Abuse Patient Records regulations: The Federal rules restrict any use of the information to criminally investigate or prosecute any alcohol or drug abuse patient.[facility] the event this information is protected by the Federal Confidentiality of Alcohol and Drug Abuse Patient Records regulations: The Federal rules restrict any use of the information to criminally investigate or prosecute any alcohol or drug abuse patient.[facility] the event this information is protected by the Federal Confidentiality of Alcohol and Drug Abuse Patient Records regulations: The Federal rules restrict any use of the information to criminally investigate or prosecute any alcohol or drug abuse patient.[facility] Reason for Visit (unrecogniz ed section and content) Reason Comments Lab Orders Reason Comments Counseling Reason Comments Follow Up Reason Comments Refill Request Reason Comments Patient Update Reason Comments Rx Refills Reason Comments Refill Request Reason Onset Date Comments Refill Request 03/10/2022 Reason Comments Medication Problem Reason Comments Amyotrophic Lateral Sclerosis (ALS) Charlee ent states he's worsening, had a fall down in [place], muscle weakness worsening, voice seems a bit hoarse, gait instability Specialty Diagnoses / Procedures Referred By Candace anguiano Referred To Contact Neurology / NEUROMUSCULAR Diagnoses Amyotrophic lateral sclerosis follow up Procedures OFFICE/OUTPATIENT ESTABLISHED MOD MDM 30-39 MIN EST NI PATIENT Josh Go MD [address] [place] [address] Josh Go MD [address] [place] [address] Referral ID Status Reason Start Date Expiration Date V isits Requested Visits Authorized [id number] Authorized 07/10/2022 07/11/2023 20 20 Reason Comments Opened In Error Reason Comments Patient Question Patient calling byron hubbard letter recevied and UPDATE on device. 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 Relationship Specialty Start Date End Date Milton Espinal MD [address] [place] [address] PCP - General 04/04/14 Chris Reeves MD Referring Cardiology 08/30/18 Sandy Devries MD Primary Staff Physician Cardiology 10/03/19 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 Relationship Specialty Start Date End Date Milton Espinal MD [address] [place] [address] PCP - General 04/04/14 Chris Reeves MD Referring Cardiology 08/30/18 Sandy Devries MD Primary Staff Physician Cardiology 10/03/19 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 Relationship Specialty Start Date End Date Milton Espinal MD [address] [place] [address] PCP - General 04/04/14 Chris Reeves MD Referring Cardiology 08/30/18 Sandy Devries MD Primary Staff Physician Cardiology 10/03/19 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 Relationship Specialty Start Date End Date Milton Espinal MD [address] [place] [address] PCP - General 04/04/14 Chris Reeves MD Referring Cardiology 08/30/18 Sandy Devries MD Primary Staff Physician Cardiology 10/03/19 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 Relationship Specialty Start Date End Date Milton Espinal MD [address] [place] [address] PCP - General 04/04/14 Chris Reeves MD Referring Cardiology 08/30/18 Sandy Devries MD Primary Staff Physician Cardiology 10/03/19 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 Relationship Specialty Start Date End Date Milton Epsinal MD [address] [place], [place] [address] PCP - General 04/04/14 Chris Reeves MD Referring Cardiology 08/30/18 Sandy Devries MD Primary Staff Physician Cardiology 10/03/19 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 Relationship Specialty Start Date End Date Milton Espinal MD [address] [address] [place], [place] [id number] PCP - General 04/04/14 Chris Reeves MD Referring Cardiology 08/30/18 Sandy Devries MD Primary Staff Physician Cardiology 10/03/19 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 Relationship Specialty Start Date End Date Milton Espinal MD [address] [place] [address] PCP - General 04/04/14 Chris Reeves MD [address] [address] [place], [place] [id number] Referring Cardiology 08/30/18 Sandy Devries MD [address] [place] [address] Primary Staff Physician Cardiology 10/03/19 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 Relationship Specialty Start Date End Date Milton Espinal MD [address] [place] [address] PCP - General 04/04/14 Chris Reeves MD [address] [place] [address] Referring Cardiology 08/30/18 Sandy Devries MD [address] [place] [address] Primary Staff Physician Cardiology 10/03/19 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 Relationship Specialty Start Date End Date Milton Espinal MD [address] [place] [address] PCP - General 04/04/14 Chris Reeves MD [address] [place] [address] Referring Cardiology 08/30/18 Sandy Devries MD [address] [place] [address] Primary Staff Physician Cardiology 10/03/19 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 Relationship Specialty Start Date End Date Milton Espinal MD [address] [place] [address] PCP - General 04/04/14 Chris Reeves MD [address] [place] [address] Referring Cardiology 08/30/18 Sandy Devries MD [address] [place] [address] Primary Staff Physician Cardiology 10/03/19 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 Relationship Specialty Start Date End Date Milton Espinal MD [address] [place] [address] PCP - General 04/04/14 Chris Reeves MD [address] [place] [address] Referring Cardiology 08/30/18 Sandy Devries MD [address] [place] [address] Primary Staff Physician Cardiology 10/03/19 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 Relationship Specialty Start Date End Date Milton Espinal MD [address] [place] [address] PCP - General 04/04/14 Chris Reeves MD [address] [place] [address] Referring Cardiology 08/30/18 Sandy Devries MD [address] [place] [address] Primary Staff Physician Cardiology 10/03/19 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 Relationship Specialty Start Date End Date Milton Espinal MD [address] [place] [address] PCP - General 04/04/14 Chris Reeves MD [address] [place] [address] [place], [place] [address] Referring Cardiology 08/30/18 Sandy Devries MD [address] [place] [address] Primary Staff Physician Cardiology 10/03/19 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 Relationship Specialty Start Date End Date Milton Espinal MD [address] [place] [address] PCP - General 04/04/14 Chris Reeves MD [address] [place] [address] Referring Cardiology 08/30/18 Sandy Devries MD [address] [place] [address] Primary Staff Physician Cardiology 10/03/19 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 Relationship Specialty Start Date End Date Milton Espinal MD [address] [place] [address] PCP - General 04/04/14 Chris Reeves MD [address] [place] [address] Referring Cardiology 08/30/18 Sandy Devries MD [address] [place] [address] Primary Staff Physician Cardiology 10/03/19 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 Relationship Specialty Start Date End Date Milton Espinal MD [address] [place] [address] PCP - General 04/04/14 Chris Reeves MD [address] [place] [address] Referring Cardiology 08/30/18 Sandy Devries MD [address] [place] [address] Primary Staff Physician Cardiology 10/03/19 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 Relationship Specialty Start Date End Date Milton Espinal MD [address] [place] [address] PCP - General 04/04/14 Chris Reeves MD [address] [place] [address] [place], [place] [address] Referring Cardiology 08/30/18 Sandy Devries MD [address] [place] [address] [place], [place] [address] Primary Staff Physician Cardiology 10/03/19 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 Relationship Specialty Start Date End Date Milton Espinal MD [address] [place] [address] PCP - General 04/04/14 Chris Reeves MD [address] [place] [address] [place], [place] [address] Referring Cardiology 08/30/18 Sandy Devries MD [address] [place] [address] Primary Staff Physician Cardiology 10/03/19 (unrecognized sect ion and content) No Status Records Found INFORMATION SOURCE (unrecogn ized section and content) FOR RECORDS PERTAINING TO PATIENTS WHO ARE OR HAVE BEEN ENROLLED IN A CHEMICAL DEPENDENCY/SUBSTANCEABUSE PROGRAM, SOME INFORMATION MAY BE OMITTED. This clinical summary was aggregated from multiple sources. Caution should be exercised in using it in the provision of clinical care. This summary normalizes information from multiple sources, and as a consequence, information in this document may materially change the coding, format and clinical context of patient data. In addition, data may be omitted in some cases. CLINICAL DECISIONS SHOULD BE BASED ON THE PRIMARY CLINICAL RECORDS. [facility] [employer] [facility]. provides no warranty or guarantee of the accuracy or completeness of information in this document.
[2023-05-13] MEDS: HYDROcodone Bitartrate/Apap 5/325 Tablet PO (17:39)
[2023-05-13 18:58] VITALS: BP 134/88; PULSE 91; RESP 16; O2SAT 96
== END 2023-05-13 18:59 | disposition home or self-care (01) ==
PROVIDERS: Emergency Provider Emergency Medicine; PCP Family Medicine; Visit Provider Emergency Medicine
DX: S42.201A Unspecified fracture of upper end of right humerus, initial encounter for closed fracture (principal); G12.21 Amyotrophic lateral sclerosis; W19.XXXA Unspecified fall, initial encounter
CPT/HCPCS: 73030; 99282

== ENCOUNTER → 2023-11-22 | Outpatient (CLI) | payer MEDICARE, SELFPAY ==
[2023-11-22 15:40] LABS: Absolute Lymphocyte Count 1.21 X10^3/uL (0.83-4.51); Absolute Neutrophil Count 5.5 X10^3/uL (2.0-7.7); Basophil# 0.05 X10^3/uL; Basophil% 0.7 % (0-1); Eosinophil# 0.04 X10^3/uL; Eosinophils% 0.5 % (0-5); Hematocrit 50.3 % (40-54); Lymphocyte # 1.21 X10^3/ul (0.83-4.51); Lymphocyte % 16.3 % (19-41); Mean Corp Hgb Conc 31.8 g/dL (32-36); Mean Corpuscular Hgb 28.9 pg (27.0-32.0); Mean Corpuscular Volume 90.8 fL (80-94); Mean Platelet Vol. 11.6 fl (6.2-12.0); Monocyte# 0.55 X10^3/uL; Monocyte% 7.4 % (0-10); NRBC Flagged by Analyzer 0 % (0-5); Neutrophil # 5.53 X10^3/uL (2.7-7.7); Neutrophil % 74.7 % (47-70); Platelet Count 203 K/mm3 (150-450); RBC Distribution Width CV 14.1 % (11.6-14.6); RBC Distribution Width SD 47.4 fl (35.1-43.9); Red Blood Count 5.54 M/mm3 (4.6-6.2); White Blood Count 7.4 K/mm3 (4.4-11.0)
[2023-11-22 16:07] LABS: ALB/GLOB Ratio 1.1 RATIO (0.9-2.4); AST(SGOT) 22 U/L (15-37); Alanine Aminotransfer ALT/SGPT 39 U/L (16-61); Alkaline Phosphatase 88 U/L (45-117); Anion Gap 5 (5-15); BUN 16 mg/dL (7-18); BUN/Creat Ratio 20.6 RATIO (10-20); Calcium,Total 9.3 mg/dL (8.5-10.1); Chloride 106 mmol/L (98-107); Cholesterol 158 mg/dL (200); Creatinine, Serum 0.78 mg/dL (0.70-1.30); EST Glomerular Filtration Rate 107 mL/min (>60); Est Glom Filt Rate - Afr Amer 129 mL/min (>60); Globulin 3.6 g/dL (2.2-4.2); Glucose 115 mg/dL (74-106); High Density Lipoprotein 37 mg/dL; PSA,Total - Annual Screen 2.15 ng/mL (0.00-4.00); Potassium 4.3 mmol/L (3.5-5.1); Protein, Total 7.6 g/dL (6.4-8.2); Sodium Level 138 mmol/L (136-145); T4 Free Direct 1.48 ng/dL (0.76-1.46); Thyroid Stim Hormone (TSH) 1.56 uIU/mL (0.358-3.74); Triglycerides 300 mg/dL; Very Low Density Lipoprotein 60 mg/dL (5-40)
== END | disposition home or self-care (01) ==
PROVIDERS: PCP Nurse Practitioner Family; Referring Provider Nurse Practitioner Family; Visit Provider Nurse Practitioner Family
DX: E03.9 Hypothyroidism, unspecified (principal); E78.5 Hyperlipidemia, unspecified; I10 Essential (primary) hypertension; Z12.5 Encounter for screening for malignant neoplasm of prostate
CPT/HCPCS: 36415; 80053; 80061; 84153; 84439; 84443; 85025; G0103

== ENCOUNTER → 2024-12-11 | Outpatient (CLI) | payer MEDICARE, SELFPAY ==
[2024-12-11 16:36] LABS: Hematocrit 54.1 % (40-54); Hemoglobin 17.4 g/dL (13.0-16.5); Immature Granulocytes Count 0.030 X10^3/uL (0.0-0.0); Mean Corp Hgb Conc 32.2 g/dL (32-36); Mean Corpuscular Volume 90.9 fL (80-94); Mean Platelet Vol. 12.2 fl (6.2-12.0); NRBC Flagged by Analyzer 0 % (0-5); Platelet Count 209 K/mm3 (150-450); RBC Distribution Width CV 14.6 % (11.6-14.6); RBC Distribution Width SD 48.4 fl (35.1-43.9); Red Blood Count 5.95 M/mm3 (4.6-6.2); White Blood Count 10.2 K/mm3 (4.4-11.0)
[2024-12-11 18:34] LABS: Cholesterol 150 mg/dL (<=200); Low Density Lipoprotein Calc. 67 mg/dL; PSA,Total - Annual Screen 2.09 ng/mL (0.02-4.00); Triglycerides 215 mg/dL; Very Low Density Lipoprotein 43 mg/dL (5-40); cholesterol:hdl ratio screen 3.79
[2024-12-11 18:35] LABS: AST(SGOT) 31 U/L (<=37); Alanine Aminotransfer ALT/SGPT 29 U/L (<=46); Albumin, Serum 4.4 g/dL (3.4-4.8); Alkaline Phosphatase 91 U/L (40-129); Anion Gap 16 (5-15); BUN 15 mg/dL (4-19); BUN/Creat Ratio 22.2 RATIO (10-20); Calcium,Total 9.7 mg/dL (7.6-11.0); Carbon Dioxide 22.3 mmol/L (21.0-32.0); Chloride 100 mmol/L (98-108); Globulin 3.4 g/dL (2.2-4.2); Glucose 95 mg/dL (70-99); Potassium 4.5 mmol/L (3.3-5.1)
== END | disposition home or self-care (01) ==
LOC: BFHLAB 13:33
PROVIDERS: PCP Nurse Practitioner Family; Visit Provider Nurse Practitioner Family
DX: E03.9 Hypothyroidism, unspecified (principal); E78.5 Hyperlipidemia, unspecified; I10 Essential (primary) hypertension; Z12.5 Encounter for screening for malignant neoplasm of prostate
CPT/HCPCS: 36415; 80053; 80061; 84153; 84439; 84443; 85025; G0103